=== PATIENT | male | born 1945 | race Caucasian/White ===

== ENCOUNTER 2018-02-19 22:21 | Emergency (ER) | payer MEDICARE ==
[~2018-02-19] VITALS: Ht 177.8 cm; Wt 80.7 kg
[~2018-02-19 22:21] MED LIST: AMARYL2 MG; ASPIRIN325; AZITHROMYCIN 2250 MG PO; CARDURA4 MG; CARVEDILOL12.5 MG; DELTASONE20 MG PO; HYDRALAZINE HC100 MG; IBUPROFEN 800800 MG PO; IMDUR 60 MG TAB60 M1; KEFLEX500 MG PO; LANTUS100 UNIT/M; LEVOTHYROXIN0.112 M1; LIPITOR 20 MG T20 M1; NITROGLYCERIN0.4 MG; NORCO 5-325 TA1 EACH PO; PARICALCITOL1 MCG; PREDNISONE50 MG PO; PROCARDIA XL90 MG; SYMBICORT160 MCG/4.; TUSSIONEX PENN473 ML PO; ZETIA10 MG
[2018-02-19] MEDS ORDERED: VITAMIN D1000 UNI1 PO (22:30)
[2018-02-19] MEDS ORDERED: NORCO 5-325 TA1 EACH PO (23:20)
[2018-02-19 23:41] VITALS: BP 173/59
== END 2018-02-19 23:43 | disposition home or self-care (01) ==
LOC: M.ERS 22:21
DX: M25.561 Pain in right knee (principal); E11.9 Type 2 diabetes mellitus without complications; I12.9 Hypertensive chronic kidney disease with stage 1 through stage 4 chronic kidney disease, or unspecified chronic kidney disease; N18.4 Chronic kidney disease, stage 4 (severe); E11.22 Type 2 diabetes mellitus with diabetic chronic kidney disease; Z96.651 Presence of right artificial knee joint; Z79.4 Long term (current) use of insulin; Z87.891 Personal history of nicotine dependence

== ENCOUNTER 2018-07-29 08:45 | Emergency (ER) | payer MEDICARE ==
[~2018-07-29] VITALS: Ht 177.8 cm; Wt 79.4 kg
[~2018-07-29 08:45] MED LIST changes: +VITAMIN D1000 UNI1 PO
[2018-07-29] MEDS ORDERED: NORVASC5 MG PO (08:55)
[2018-07-29] MEDS ORDERED: RENAL CAPS SOFTG1 MG PO (08:55)
[2018-07-29] MEDS ORDERED: LASIX 40 MG TAB40 M2 PO (08:56)
[2018-07-29 11:18] VITALS: BP 124/67
== END 2018-07-29 11:20 | disposition home or self-care (01) ==
LOC: M.ERS 08:45
DX: R04.0 Epistaxis (principal); I12.9 Hypertensive chronic kidney disease with stage 1 through stage 4 chronic kidney disease, or unspecified chronic kidney disease; E11.22 Type 2 diabetes mellitus with diabetic chronic kidney disease; N18.4 Chronic kidney disease, stage 4 (severe); Z99.2 Dependence on renal dialysis; Z79.4 Long term (current) use of insulin; Z87.891 Personal history of nicotine dependence

== ENCOUNTER 2018-08-13 09:42 | Inpatient (IN) | payer MEDICARE ==
[~2018-08-13] VITALS: Ht 177.8 cm; Wt 80.3 kg
--- NOTE | ~2018-08-13 | CON ---
[facility] [address] [place] [address] CONSULTATION Name: VIRGILIO BHATT Room: [address] IN M.R.#: [id number] Admission: 08/13/18 Attend Phys: Sherice Chen MD Discharge: 08/14/18 Date of : 41 Report #: [id number] THIS REPORT FOR: //name// CC: SHERICE Anne MD REFERRING PHYSICIAN: Sherice Chen M.D. REASON FOR CONSULTATION: Cytopenia. HISTORY OF PRESENT ILLNESS: The patient is a very pleasant 73-year-old male who was admitted after dialysis because of shortness of air. He had a subsequent repeat dialysis, this time drawing of 2 liters of fluid and is feeling much better. We are asked to see him because of his lab. Note the patient had a bone marrow biopsy back in 2006 for, I think, anemia at that time and did not find any abnormalities. He had seen Dr. Patti Caro, who had ordered the test. More recently, we note that his white count is 3.9, but it has also been that same range back to 2015 and in 2013, it was 5.2. During that same time, his differential has remained the same. He usually has an absolute neutrophil count around 2700, without any atypical cells. Hemoglobin during that same period has ranged between 10.5 and 10.7, MCV has roughly been the same at 88. Platelets have also roughly been the same. Recently they were 113,000; 10/2016, 86,000; 04/2016, 89,000 and back in 07/2014, 101,000. Iron was last checked about 2 years ago. At the same time, his liver function was mostly normal. His electrolytes are notable for the creatinine that is elevated related to end-stage renal disease. The patient really has no prior knowledge of low blood counts and he thinks he may have vaguely heard it once mentioned. He has not needed any transfusions. He is not aware of any liver disease. The patient denies any fevers or chills. He has lost some weight over the last year, but it sounds like it is somewhat intentional; it has mostly been since dialysis began. No unusual lymph nodes that he is aware of. No abdominal pain. No unusual bruising or bleeding. He has not had any surgeries recently. PAST MEDICAL HISTORY: Past history is notable for end-stage renal disease, on hemodialysis; history of coronary artery disease with quadruple heart bypass in 1997; history of aortofemoral bypass in 1999; history of diabetes; history of arthroscopic surgeries; hypertension [place] [address] CONSULTATION Name: BECKYGROVERVIRGILIO Room: [address] [place] [facility].#: [id number] Admission: 08/13/18 Attend Phys: Sherice Chen MD Discharge: 08/14/18 Date of : 41 Report #: [id number] SOCIAL HISTORY: He is a past cigarette smoker. No alcohol. No street drugs. MEDICATIONS: At the time of admission included aspirin, atorvastatin, carvedilol, doxazosin, glimepiride, hydralazine, insulin, levothyroxine, cholecalciferol, amlodipine, folic acid and furosemide. His current medications in the hospital have included cholecalciferol 1000 units daily, furosemide 40 mg daily oral, folic acid with vitamin B one cap daily, glimepiride 2 mg daily, doxazosin 4 mg daily, atorvastatin calcium 20 mg daily, aspirin 325 mg daily, levothyroxine 0.112 mg daily, pantoprazole 40 daily, insulin of some type 15 units b.i.d., hydralazine 100 b.i.d., carvedilol 6.25 mg b.i.d. and several PRNs, docusate 100 mg daily, MiraLax daily and Tylenol p.r.n. PHYSICAL EXAMINATION: GENERAL: The patient appears his stated age. VITAL SIGNS: His height is 5 feet 10, which is 177.8 cm. Weight is 177 pounds; note on admit, it was 175, that is also same as 80.29 kilograms. Blood pressure is 138/47, respirations 16, O2 sats 96, pulse 71 and temperature 97.4. MOOD: The patient is alert and pleasant and conversant. NEUROLOGIC: Face is symmetrical, moving all extremities. Speech and thought pattern normal. LYMPHATIC: The patient does have notably enlarged lymph nodes under both axilla. Note that he has had IV sites and also dialysis, I believe, connected in his left arm, not sure if it is related to that, but it is of note. No other lymph nodes in his neck or groin. ABDOMEN: Without pain or hepatosplenomegaly. EXTREMITIES: Without clubbing or cyanosis. There is some trace edema. SKIN: Intact. No unusual petechiae. RADIOLOGIC STUDIES: Here, he has had CT abdomen with runoff with the heart being mildly enlarged, liver supposedly normal and spleen normal. No mention of any lymph nodes, though there is extensive atherosclerosis and specifically no adenopathy mentioned. There was a small hiatal hernia. ASSESSMENT AND PLAN: 1. Cytopenias, unclear. Has been stable for about 4 years, but given possible lymphadenopathy, might consider CAT scan of chest to see if his lymph node is seen on there or could consider ultrasound. These could be related to IV pokes, but these seem a little bit more larger than that. If interested, we could do a biopsy. On the other hand, with his counts being stable, I do not feel overly strong about that. The patient agreed to have a B12, folate, iron panel and peripheral smear check today. We could have him follow up with Dr. Patti Caro, who he has seen before years past. 2. Fluid overload, better after second dialysis. He says normally they take out 0.5; but with the second dialysis yesterday, they took off 2 [place] [address] CONSULTATION Name: VIRGILIO BHATT Room: [address] [place] [facility].#: [id number] Admission: 08/13/18 Attend Phys: Sherice Chen MD Discharge: 08/14/18 Date of : 41 Report #: [id number] 3. End-stage renal disease. Defer to Dr. Decker. 4. Coronary artery disease with history of coronary artery bypass graft. Defer to Dr. Jara. 5. Peripheral vascular disease. Defer to Dr. Gamal Anne. 6. Diabetes. Defer to Dr. Lucas Ruth. 7. Followup. Consider follow up with Dr. Patti Caro, though the patient would like to talk with Dr. Dileep Alejo first. By: 1108 [id number] Ramos MD /nt
--- NOTE | ~2018-08-13 | CON ---
[address] [place] [address] CONSULTATION Name: VIRGILIO BHATT Room: [address] IN M.R.#: [id number] Admission: 08/13/18 Attend Phys: Burke Chen MD Discharge: 08/14/18 Date of : 41 Report #: [id number] THIS REPORT FOR: //name// CC: Burke Chen [facility] DATE OF SERVICE: 08/13/2018 CONSULTING PHYSICIAN: Dr. Chen. REASON FOR NEPHROLOGY CONSULTATION: End-stage renal disease, admitted with fluid overload. REASON FOR ADMISSION: Shortness of breath. HISTORY OF PRESENT ILLNESS: This is a 73-year-old male who has been on hemodialysis since 2016, goes for hemodialysis every Wednesday, , and Wednesday under the care of Dr. Decker at the [facility]. Also, has history of diabetes and hypertension, coronary artery disease, who came in after he became short of breath after his dialysis yesterday. We called up his dialysis unit and they said that they were able to remove only 0.3 liters off of him because the patient himself asks them to stop and does not let them remove fluid because he complained of cramping. His chest x-ray yesterday showed fluid overload with some left-sided pleural effusion and we did dialyze him again yesterday evening for 2 hours and removed 2 liters off of him and he feels better today. ALLERGIES: No known allergies. REVIEW OF SYSTEMS: As mentioned in history of present illness. HOME MEDICATIONS: Which include aspirin, atorvastatin, carvedilol, doxazosin, glimepiride, hydralazine, Lantus, levothyroxine, cholecalciferol, amlodipine, folic acid, furosemide. PAST MEDICAL AND SURGICAL HISTORY: Which includes quadruple bypass in 1997; aortofemoral bypass in 1999; diabetes mellitus type 2; three arthroscopic surgeries of left knee; total knee replacement right knee; end-stage renal disease, on hemodialysis every Wednesday, and Wednesday; hypertension; AV fistula. FAMILY HISTORY: Noncontributory. SOCIAL HISTORY: He does not smoke. Does not use alcohol or use illicit drugs. PHYSICAL EXAMINATION: [place] [address] CONSULTATION Name: NOVAVIRGILIO APRIL Room: [address]#: [id number] Admission: 08/13/18 Attend Phys: Burke Chen MD Discharge: 08/14/18 Date of : 41 Report #: [id number] VITAL SIGNS: Blood pressure is 143/42, respiration rate is 16, pulse rate is 64, temperature 36.5, and pulse ox is 96% on 2 liters nasal cannula. GENERAL: He is awake and alert, oriented x 3. HEAD, EYES, EARS, NOSE AND THROAT: Mucous membranes are moist. NECK: There is no JVD. CHEST: Diminished breath sounds bilaterally, but no crackles. CARDIOVASCULAR: S1, S2 normal. No murmurs. ABDOMEN: Soft, nondistended, nontender. Bowel sounds are present. EXTREMITIES: He has a left arm AV fistula radiocephalic with good bruit and good thrill. Lower extremities are symmetrical. No edema. NEUROLOGICAL FUNCTION: Gross neurological function is intact. PSYCHOLOGIC: Mood and affect seem to be normal. LABORATORY DATA: Hemoglobin is 10.5, WBC is 3.9, platelet count is 130. Potassium is 4.7, sodium is 138, and CO2 is 31. Other labs are reviewed. IMAGING: Chest x-ray was reviewed. ASSESSMENT: 1. End-stage renal disease, on hemodialysis Wednesday, and Wednesday. 2. Short of breath, fluid overload, left-sided pleural effusions. 3. Anemia of chronic kidney disease, hemoglobin is at goal 10.5. 4. Hypertension. 5. Diabetes. PLAN: 1. The patient does have fluid overload. He does not allow fluid removal during dialysis. We dialyzed him again yesterday, removed 2 liters off of him and he looks better today. Next dialysis will be planned for Wednesday. 2. Hemoglobin is at goal. 3. Blood pressure is controlled. Thank you for this consultation. He is okay to be discharged from renal standpoint. I discussed with the patient as well as the patient's nurse. By: [id number] Byrnes MD /nt
[~2018-08-13 09:42] MED LIST changes: -AMARYL2 MG; +AMARYL2 MG PO; -CARDURA4 MG; +CARDURA4 MG PO; -CARVEDILOL12.5 MG; +CARVEDILOL12.5 MG PO; -HYDRALAZINE HC100 MG; +HYDRALAZINE HC100 MG PO; -LANTUS100 UNIT/M; +LANTUS100 UNIT/M SUBQ; +LASIX 40 MG TAB40 M2 PO; -LEVOTHYROXIN0.112 M1; -LIPITOR 20 MG T20 M1; +LIPITOR 20 MG T20 M1 PO; +NORVASC5 MG PO; +RENAL CAPS SOFTG1 MG PO; +SYNTHROID112 MC1 PO
[2018-08-13 09:45] VITALS: BP 157/65
[2018-08-13 10:13] LABS: ABSOLUTE EOSINOPHILS 0.1 thou/uL (0.0-0.7); ABSOLUTE LYMPHOCYTES 0.5 thou/uL (0.8-5.3); ABSOLUTE MONOCYTES 0.5 thou/uL (0.0-1.2); ABSOLUTE NEUTROPHILS 2.7 thou/uL (1.6-8.1); EOSINOPHILS 2.1 %; HEMATOCRIT 34.3 % (42.0-52.0); HEMOGLOBIN 11.1 gm/dL (14.0-18.0); LYMPHOCYTES 13.6 %; MCH 28.3 pg (26.0-34.0); MCHC 32.3 g/dL (28.0-37.0); MCV 87.4 fL (80.0-100.0); MONOCYTES 13.8 %; MPV 7.2 fl. (7.2-11.1); NUCLEATED RBCS 0 /100WBC; PLATELET COUNT* 112 thou/uL (150-400); POLYS 69.5 %; RBC 3.92 mil/uL (4.50-6.00); RDW-CV 19.5 % (10.5-14.5); WBC 3.9 thou/uL (4.0-11.0)
[2018-08-13 10:17] LABS: PROTIME 10.3 Seconds (9.20-11.50)
[2018-08-13 10:18] LABS: ANION GAP 5 mmol/L (7-16); BUN 11 mg/dL (7-18); CALCIUM 8.5 mg/dL (8.5-10.1); CHLORIDE 100 mmol/L (98-107); CO2 35 mmol/L (21-32); CREATININE 2.5 mg/dL (0.6-1.3); GLUCOSE 44 mg/dL (70-99); POTASSIUM 3.9 mmol/L (3.5-5.1); SODIUM 140 mmol/L (136-145)
--- NOTE | 2018-08-13 10:26 | NUR ---
PT BLOOD GLUCOSE LOW PER LAB DRAW. PT RECIEVED ORANGE JUICE, GRANT CRACKERS, AND CRACKERS WITH PEANUT BUTTER.
[2018-08-13 10:30] LABS: ALBUMIN 3.1 g/dL (3.4-5.0); ALKALINE PHOSPHATASE 81 U/L (46-116); LIPASE 71 U/L (73-393); NT-PRO BRAIN NAT PEPTIDE > 35000 pg/mL (<300); SGOT 20 U/L (15-37); SGPT 21 U/L (30-65); TOTAL BILIRUBIN 0.7 mg/dL (<0.1-1.0); TOTAL PROTEIN 6.9 g/dL (6.4-8.2); TROPONIN-I LEVEL 0.08 ng/mL (<0.06)
[2018-08-13 11:45] VITALS: BP 152/45
[2018-08-13 11:50] VITALS: BP 104/87
[2018-08-13] MEDS ORDERED: ADULT ASPIRIN R81 MG PO (14:54)
[2018-08-13 17:11] VITALS: BP 146/40
--- NOTE | 2018-08-13 20:00 | NUR ---
pt arrived to room 201 at approx 1145, admission hx and assesment done as charted. pt a/o x4, denies pain, vss, sr/bbb on the monitor. pt scheduled for dialysis this evening. left unit at approx 1845. report given to night rn will
[2018-08-13 22:05] VITALS: BP 148/56
[2018-08-14 00:41] VITALS: BP 115/70; BP 126/52
[2018-08-14 04:24] LABS: ABSOLUTE EOSINOPHILS 0.1 thou/uL (0.0-0.7); ABSOLUTE LYMPHOCYTES 0.6 thou/uL (0.8-5.3); ABSOLUTE MONOCYTES 0.5 thou/uL (0.0-1.2); ABSOLUTE NEUTROPHILS 2.7 thou/uL (1.6-8.1); EOSINOPHILS 3.1 %; HEMATOCRIT 32.5 % (42.0-52.0); HEMOGLOBIN 10.5 gm/dL (14.0-18.0); LYMPHOCYTES 14.1 %; MCH 28.4 pg (26.0-34.0); MCHC 32.2 g/dL (28.0-37.0); MCV 88.3 fL (80.0-100.0); MONOCYTES 12.7 %; MPV 7.5 fl. (7.2-11.1); NUCLEATED RBCS 0 /100WBC; PLATELET COUNT* 113 thou/uL (150-400); POLYS 69.1 %; RBC 3.68 mil/uL (4.50-6.00); RDW-CV 19.4 % (10.5-14.5); WBC 3.9 thou/uL (4.0-11.0)
[2018-08-14 04:30] VITALS: BP 143/42
[2018-08-14 04:46] LABS: POTASSIUM 4.7 mmol/L (3.5-5.1)
[2018-08-14 05:08] LABS: CREATININE 4.1 mg/dL (0.6-1.3)
--- NOTE | 2018-08-14 06:49 | NUR ---
PT AT DIALYSIS AT START OF SHIFT, PT TO FLOOR AT 2145 AND ASSUMED CARE. PT VITALS WNL. SEE MAR. SEE CHARTING. HOURLY ROUNDING FOR SAFETY.
[2018-08-14 08:00] VITALS: BP 138/47
--- NOTE | 2018-08-14 09:46 | NUR ---
ASSUMED PT CARE AT 0700 PT IS ALERT AND ORIENTD X 4 PT DENIES PAIN OR SOA ON RA, PT IS UP AD JOHNNY PT IS NOT A FALL RISK, PT IS SR ON THE MONITOR, NEPHROLOGY CLEARED PT FOR DISCAHRGE AWAITING HOSPITALIST ORDERS, WILL CONTINUE TO MONITOR
[2018-08-14 13:09] VITALS: BP 137/50
[2018-08-14 13:12] VITALS: BP 137/50
--- NOTE | 2018-08-14 15:35 | EKG ---
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 : 1945 Requested By: Gamal Ferguson Order Number: [id number] MD: Orville Austin Measurements Intervals [place] Rate: 83 P: 107 MD: 180 QRS: 75 QRSD: 164 T: 229 QT: 442 QTc: 520 Interpretive Statements Sinus rhythm Left bundle-branch block Baseline wander in lead(s) V2 Compared to ECG 10/30/2016 11:09:25 No significant changes Electronically Signed On 08-14-2018 15:35:28 CLOTH TESTER by Orville Austin [email or web address] <ELECTRONICALLY SIGNED> By: Orville Austin MD, FACC 08/14/18 1535 0947 0947 Orville Austin MD, FAC /EPI
== END 2018-08-14 13:48 | disposition home or self-care (01) | DRG 291 ==
LOC: M.ERS 09:42 → M.TBA-ER 10:55 → M.2W 11:47
PROVIDERS: Emergency Medicine; Internal Medicine Hematology & Oncology; ADMIT Internal Medicine
DX: I13.2 Hypertensive heart and chronic kidney disease with heart failure and with stage 5 chronic kidney disease, or end stage renal disease (principal); I50.33 Acute on chronic diastolic (congestive) heart failure; N18.6 End stage renal disease; D61.818 Other pancytopenia; Z87.891 Personal history of nicotine dependence; I25.10 Atherosclerotic heart disease of native coronary artery without angina pectoris; Z96.651 Presence of right artificial knee joint; E87.70 Fluid overload, unspecified; D63.8 Anemia in other chronic diseases classified elsewhere; E11.22 Type 2 diabetes mellitus with diabetic chronic kidney disease; E03.9 Hypothyroidism, unspecified; D75.9 Disease of blood and blood-forming organs, unspecified; E11.51 Type 2 diabetes mellitus with diabetic peripheral angiopathy without gangrene; M19.90 Unspecified osteoarthritis, unspecified site; Z79.82 Long term (current) use of aspirin; Z95.1 Presence of aortocoronary bypass graft; Z79.899 Other long term (current) drug therapy; Z99.2 Dependence on renal dialysis

== ENCOUNTER 2018-09-24 09:52 | Emergency (ER) | payer MEDICARE ==
[~2018-09-24] VITALS: Ht 177.8 cm; Wt 74.8 kg
[~2018-09-24 09:52] MED LIST changes: +ADULT ASPIRIN R81 MG PO
[2018-09-24 10:39] LABS: ABSOLUTE BASOPHILS 0.1 thou/uL (0.0-0.2); ABSOLUTE EOSINOPHILS 0.1 thou/uL (0.0-0.7); ABSOLUTE LYMPHOCYTES 0.6 thou/uL (0.8-5.3); ABSOLUTE MONOCYTES 0.4 thou/uL (0.0-1.2); ABSOLUTE NEUTROPHILS 2.7 thou/uL (1.6-8.1); BASOPHILS 1.7 %; EOSINOPHILS 3.4 %; HEMATOCRIT 37.9 % (42.0-52.0); HEMOGLOBIN 12.2 gm/dL (14.0-18.0); LYMPHOCYTES 15.4 %; MCH 28.5 pg (26.0-34.0); MCHC 32.1 g/dL (28.0-37.0); MCV 88.8 fL (80.0-100.0); MONOCYTES 9.8 %; MPV 7.2 fl. (7.2-11.1); NUCLEATED RBCS 0 /100WBC; PLATELET COUNT* 109 thou/uL (150-400); POLYS 69.7 %; RBC 4.27 mil/uL (4.50-6.00); RDW-CV 19.9 % (10.5-14.5); WBC 3.9 thou/uL (4.0-11.0)
[2018-09-24] MEDS ORDERED: AMOXICILLIN 50500 MG PO (10:41)
[2018-09-24 10:48] LABS: APTT 30.8 Seconds (25.0-31.3); PROTIME 10.4 Seconds (9.20-11.50)
[2018-09-24 11:10] VITALS: BP 150/81
== END 2018-09-24 11:11 | disposition home or self-care (01) ==
LOC: M.ERS 09:52
PROVIDERS: Nurse Practitioner Family
DX: R04.0 Epistaxis (principal); E11.22 Type 2 diabetes mellitus with diabetic chronic kidney disease; I12.9 Hypertensive chronic kidney disease with stage 1 through stage 4 chronic kidney disease, or unspecified chronic kidney disease; N18.4 Chronic kidney disease, stage 4 (severe); Z99.2 Dependence on renal dialysis; Z96.651 Presence of right artificial knee joint; Z87.891 Personal history of nicotine dependence; Z79.4 Long term (current) use of insulin

== ENCOUNTER 2018-09-24 12:17 | Emergency (ER) | payer MEDICARE ==
[~2018-09-24] VITALS: Ht 177.8 cm; Wt 74.8 kg
[~2018-09-24 12:17] MED LIST changes: +AMOXICILLIN 50500 MG PO
[2018-09-24 12:52] VITALS: BP 177/68
== END 2018-09-24 12:53 | disposition home or self-care (01) ==
LOC: M.ERS 12:17
DX: J34.89 Other specified disorders of nose and nasal sinuses (principal); I12.9 Hypertensive chronic kidney disease with stage 1 through stage 4 chronic kidney disease, or unspecified chronic kidney disease; E11.22 Type 2 diabetes mellitus with diabetic chronic kidney disease; N18.4 Chronic kidney disease, stage 4 (severe); Z79.4 Long term (current) use of insulin; Z99.2 Dependence on renal dialysis; Z87.891 Personal history of nicotine dependence

== ENCOUNTER 2019-03-24 20:29 | Inpatient (IN) | payer MEDICARE ==
[~2019-03-24] VITALS: Ht 177.8 cm; Wt 82.3 kg
[2019-03-24 20:34] VITALS: BP 145/47
[2019-03-24 20:52] LABS: ABSOLUTE EOSINOPHILS 0.1 thou/uL (0.0-0.7); ABSOLUTE LYMPHOCYTES 0.6 thou/uL (0.8-5.3); ABSOLUTE MONOCYTES 0.4 thou/uL (0.0-1.2); ABSOLUTE NEUTROPHILS 3.1 thou/uL (1.6-8.1); BASOPHILS 0.7 %; EOSINOPHILS 2.9 %; HEMATOCRIT 31.9 % (42.0-52.0); HEMOGLOBIN 10.8 gm/dL (14.0-18.0); LYMPHOCYTES 14.1 %; MCH 32.2 pg (26.0-34.0); MCHC 33.7 g/dL (28.0-37.0); MCV 95.5 fL (80.0-100.0); MONOCYTES 9.2 %; MPV 7.6 fl. (7.2-11.1); NUCLEATED RBCS 0 /100WBC; PLATELET COUNT* 110 thou/uL (150-400); POLYS 73.1 %; RBC 3.34 mil/uL (4.50-6.00); RDW-CV 19.3 % (10.5-14.5); WBC 4.3 thou/uL (4.0-11.0)
[2019-03-24 21:00] LABS: CALCIUM 8.6 mg/dL (8.5-10.1); CREATININE 6.3 mg/dL (0.6-1.3); POTASSIUM 4.7 mmol/L (3.5-5.1)
[2019-03-24 21:03] LABS: PROTIME 10.6 Seconds (9.20-11.50)
[2019-03-24 21:09] LABS: ALBUMIN 3.9 g/dL (3.4-5.0); TOTAL BILIRUBIN 0.6 mg/dL (<0.1-1.0); TOTAL PROTEIN 7.5 g/dL (6.4-8.2); TROPONIN-I LEVEL 0.34 ng/mL (<0.06)
--- NOTE | 2019-03-24 23:03 | NUR ---
RECIEVED REPORT AND ASSUMED CARE OF PT.
--- NOTE | 2019-03-25 01:28 | NUR ---
REPORT GIVEN TO YANELIS HERNANDEZ. PT BEING ADMITTED TO ROOM 204.
[2019-03-25 01:29] VITALS: BP 141/49
[2019-03-25 02:15] VITALS: BP 146/61
--- NOTE | 2019-03-25 03:48 | NUR ---
RECEIVED REPORT AND ASSUMED CARE AT 0200. PT TRANSPORTED FROM ED TO ROOM 204. VSS. CARDIAC MONITORING IN PLACE. PT ORIENTATD TO ROOM, CALL LIGHT, FALL POLICY. ASSESMENT COMPLETED CHARTED. PT DENIES COMPLAINTS OF PAIN. PT UP AD JOHNNY IN ROOM, ON RA. DIALYSIS TU/TH/SAT. FISTULA L ARM, LIMB ALERT BAND ON. DISCUSSED PLAN OF CARE WITH PT. NPO, CARDIOLOGY CONSULT, UPCOMING LAB DRAWS. VERBALIZED UNDERSTANDING. BED LOCKED IN LOWEST POSITION, CALL LIGHT MARITZA LEWIS.
[2019-03-25 03:49] VITALS: BP 129/52
[2019-03-25 07:30] VITALS: BP 124/52
--- NOTE | 2019-03-25 13:06 | CON ---
[facility] [address] [place] [address] CONSULTATION Name: VIRGILIO BHATT APRIL Room: [address] ADM IN M.R.#: [id number] Admission: 03/25/19 Attend Phys: Margarita Vargas Discharge: Date of : 41 Report #: [id number] THIS REPORT FOR: //name// CC: Dileep Breen INDICATION: Non-ST elevation myocardial infarction. HISTORY OF PRESENT ILLNESS: The patient is a very pleasant 73-year-old gentleman who had 4-vessel coronary artery bypass grafting in 1997. There is no report of any intervention since that time with the exception of pacemaker placement in September of this year. The patient had been in his usual state of health until Wednesday, yesterday when he had some shortness of breath and chest pressure while riding his riding lawnmower. He describes this symptom is very similar to what he had prior to his bypass surgery. He presented to the Emergency Room where his troponins trended upwards consistent with non-ST elevation myocardial infarction. He was placed on a heparin drip, given aspirin and had resolution of his symptoms. He remains stable since then. He does have end-stage renal disease and is on dialysis. Additional cardiac risk factors include hyperlipidemia, type 2 diabetes mellitus, hypertension, and family history of coronary artery disease. He is a nonsmoker. PAST MEDICAL HISTORY: 1. Coronary artery disease with 4-vessel bypass in 1997. 2. Permanent pacemaker placement. 3. Type 2 diabetes mellitus. 4. Chronic renal insufficiency, end-stage renal disease, on dialysis. 5. Hypothyroidism. 6. Hypertension. 7. Hyperlipidemia. 8. Peripheral vascular disease. PAST SURGICAL HISTORY: Previous aortofemoral bypass, bilateral knee replacements, fem-fem bypass, coronary artery bypass grafting, AV fistula placement. FAMILY HISTORY: The patient's father had a heart attack at age 56. SOCIAL HISTORY: The patient is . He does not smoke. He does not drink alcohol. ALLERGIES: None documented. HOME MEDICATIONS: Amlodipine 5 mg b.i.d., aspirin 81 mg daily, atorvastatin 20 mg daily, carvedilol 6.25 mg b.i.d., vitamin D 1000 units daily, Card[place] 4 [place] [address] CONSULTATION Name: VIRGILIO BHATT Room: [address] IN [facility].#: [id number] Admission: 03/25/19 Attend Phys: Margarita Vargas Discharge: Date of : 41 Report #: [id number], folate 1 mg daily, furosemide 40 mg daily, glimepiride 2 mg daily, hydralazine 100 mg b.i.d., Lantus 25 units at bedtime, levothyroxine 112 mcg daily. REVIEW OF SYSTEMS: A 14-point review of systems is positive for cough productive of clear sputum, chest discomfort as outlined above, cardiac murmur, type 2 diabetes mellitus, hypothyroidism and he wears glasses without acute loss of vision. Otherwise, 14-point review of systems is unremarkable. PHYSICAL EXAMINATION: VITAL SIGNS: Blood pressure 124/52, pulse 67 and regular. GENERAL: This is a very pleasant gentleman, in no distress. Mood and affect appropriate. HEENT: The patient is wearing glasses. Extraocular muscles intact. Poor dentition. Mucous membranes are moist. NECK: Shows no jugular venous distention. CHEST: Reveals clear lung mariscal. CARDIAC: Reveals regular rhythm with grade 2/6 holosystolic murmur heard best at the left sternal border without a gallop. ABDOMEN: Reveals normal bowel sounds. The abdomen is soft, nontender. EXTREMITIES: Shows no edema. SKIN: Dry. LABORATORY DATA: A 12-lead EKG shows sinus rhythm with left bundle branch block. Labs are reviewed. Electrolytes are within normal limits. BUN 36, creatinine 6.3, serum glucose 140. LFTs are essentially within normal limits. Troponin on presentation 0.34, subsequently 1.0 and now 2.92. NT-proBNP greater than 35,000. White blood cell count 4.3, hemoglobin 10.8, platelet count 110,000. Chest x-ray shows chronic interstitial lung changes, possible left lower lobe pneumonitis, pacemaker in place, cardiac silhouette is upper limits of normal. IMPRESSION AND RECOMMENDATIONS: 1. Non-ST elevation myocardial infarction. The patient has been placed on heparin drip. We will continue aspirin. He is presently stable and pain free. We will plan on invasive evaluation. Further intervention pending those results. 2. Coronary artery disease. The patient is on good medical regimen outlined above, we will continue. 3. History of 4-vessel coronary artery bypass grafting remotely. Outside records requested. 4. Hypertension, adequately controlled presently. 5. Type 2 diabetes mellitus per hospitalist. 6. End-stage renal disease, on dialysis. Presently dialyzing. His schedule is [facility] [address] [place] [address] CONSULTATION Name: VIRGILIO BHATT Room: [address] IN .R.#: [id number] Admission: 03/25/19 Attend Phys: Margarita Vargas Discharge: Date of : 41 Report #: [id number] Wednesday, and Wednesday. 7. Elevated NT-proBNP in part due to end-stage renal disease. The patient may have an element of [id number] heart failure. Echocardiogram will be ordered. <ELECTRONICALLY SIGNED> By: Orville Austin MD, FACC 03/25/19 1306 1045 1202Michaeabebe Austin MD, FACC /nt
[2019-03-25 17:15] VITALS: BP 120/46
[2019-03-25 20:12] VITALS: BP 120/51
[2019-03-26] VITALS: BP 117/43
[2019-03-26 04:00] VITALS: BP 130/56
[2019-03-26 04:49] LABS: ABSOLUTE EOSINOPHILS 0.1 thou/uL (0.0-0.7); ABSOLUTE LYMPHOCYTES 0.8 thou/uL (0.8-5.3); ABSOLUTE MONOCYTES 0.3 thou/uL (0.0-1.2); ABSOLUTE NEUTROPHILS 2.2 thou/uL (1.6-8.1); HEMATOCRIT 30.5 % (42.0-52.0); HEMOGLOBIN 10.1 gm/dL (14.0-18.0); MCH 31.7 pg (26.0-34.0); MCHC 33.1 g/dL (28.0-37.0); MCV 95.8 fL (80.0-100.0); MONOCYTES 9.8 %; MPV 7.5 fl. (7.2-11.1); NUCLEATED RBCS 0 /100WBC; PLATELET COUNT* 114 thou/uL (150-400); POLYS 64.2 %; RBC 3.18 mil/uL (4.50-6.00); RDW-CV 18.7 % (10.5-14.5); WBC 3.4 thou/uL (4.0-11.0)
[2019-03-26 04:59] LABS: CALCIUM 8.4 mg/dL (8.5-10.1); POTASSIUM 4.4 mmol/L (3.5-5.1)
--- NOTE | 2019-03-26 05:33 | NUR ---
RECEIVED REPORT AND ASSUMED CARE AT 1900. VSS. CARDIAC MONITORING IN PLACE. PT DENIES COMPLAINTS OF PAIN. ASSESSMENT COMPLETED CHARTED. PT UP AD JOHNNY IN ROOM, ON RA. BED LOCKED IN LOWEST POSITION, CALL LIGHT WITHIN REACH. HOURLY ROUNDING COMPLETED AND ALL NEEDS MET
[2019-03-26 05:39] LABS: CREATININE 4.8 mg/dL (0.6-1.3)
[2019-03-26 07:30] VITALS: BP 134/53
[2019-03-26 12:00] VITALS: BP 129/56
[2019-03-26 16:25] VITALS: BP 134/53
--- NOTE | 2019-03-26 17:28 | NUR ---
PROGRESSING TOWARDS GOALS. HEPARIN GTT INFUSING PER PROTOCOL. PTT THERAPEUTIC. PLANNING FOR CARDIAC CATH TOMORROW PER DR SEGURA. PATIENT UPDATED ON PLAN OF CARE AND AGREEABLE. CALL LIGHT WITHIN REACH. HOURLY ROUNDING CHARTED. WILL CONTINUE TO MONITOR.
[2019-03-26 19:50] VITALS: BP 135/53
[2019-03-27] VITALS (10 sets, daily range): BP systolic 120–145; BP diastolic 49–65
[2019-03-27 04:39] LABS: INR 1.1; PROTIME 10.9 Seconds (9.20-11.50)
[2019-03-27 04:43] LABS: BUN 42 mg/dL (7-18); CALCIUM 8.6 mg/dL (8.5-10.1); CHOLESTEROL 96 mg/dL (<200); CO2 29 mmol/L (21-32); GLUCOSE 93 mg/dL (70-99); HDL CHOLESTEROL 33 mg/dL (>40); LDL CHOLESTEROL 49 mg/dL (<100); TC:HDL 2.9 Ratio (Not establshd); TRIGLYCERIDE 72 mg/dL (<150); VLDL 14 mg/dL (<40)
[2019-03-27 04:44] LABS: APTT 179.5 Seconds (25.0-31.3)
[2019-03-27 04:50] LABS: ANION GAP 9 mmol/L (7-16); CHLORIDE 103 mmol/L (98-107); POTASSIUM 4.3 mmol/L (3.5-5.1); SODIUM 141 mmol/L (136-145)
[2019-03-27 04:51] LABS: CREATININE 6.8 mg/dL (0.6-1.3); SERUM ASSESSMENT CLEAR
--- NOTE | 2019-03-27 06:37 | NUR ---
RECEIVED REPORT AND ASSUMED CARE AT 1900. VSS. CARDIAC MONITORING IN PLACE. PT DENIES COMPLAINTS OF PAIN. ASSESSMENT COMPLETED CHARTED. PT UP AD JOHNNY IN ROOM, ON RA. BED LOCKED IN LOWEST POSITION, CALL LIGHT WITHIN REACH. PT TOOK A SHOWER THIS EVENING. HEPARIN GTT DOSE CHANGES PER PROTOCOL. HOURLY ROUNDING COMPLETED AND ALL NEEDS MET
--- NOTE | 2019-03-27 07:15 | NUR ---
CHANGE OF SHIFT BEDSIDE REPORT GIVEN PATIENT SEEN AT BEDSIDE, IN BED ASLEEP ASSUMED PATIENT CARE
--- NOTE | 2019-03-27 10:32 | NUR ---
Pt is A&O. Resides at home alone. Active and independent. No DME. Hx of HH post knee surgery. No hx of SNF. Pt is current at [facility] on a schedule, flow sheets will need to be faxed at ut [phone]. Goal is home at ut. Following.
--- NOTE | 2019-03-27 12:17 | EKG ---
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: [place] : 1945 Requested By: Tabitha Chen Order Number: [id number] MD: Tim Gudino Measurements Intervals [place] Rate: 70 P: 52 SD: 150 QRS: 8 QRSD: 171 T: 166 QT: 478 QTc: 516 Interpretive Statements Sinus rhythm Left bundle branch block Compared to ECG 08/13/2018 09:47:28 No significant changes Electronically Signed On 03-27-2019 12:17:26 CDT by Tim Gudino [email or web address] <ELECTRONICALLY SIGNED> By: Tim Gudino MD, [facility] 03/27/19 1217 35 35 Tim Gudino MD, [facility] /EPI
--- NOTE | 2019-03-27 17:06 | 2DMMODE ---
[place] [address] 2 D/M-MODE ECHOCARDIOGRAM Name: VIRGILIO BHATT Room: [address] ADM IN [facility]#: [id number] Admission: 03/25/19 Attend Phys: Lucas Breen Discharge: Date of : 41 Date of Service: 03/27/19 1706 Report #: [id number] THIS REPORT FOR: //name// APPROVED REPORT Study performed: 03/27/2019 10:23:59 EXAM: Comprehensive 2D, Doppler, and color-flow Echocardiogram Patient Location: In-Patient Room #: [facility] BSA: 2.00 HR: 60 bpm BP: 132/51 mmHg Rhythm: NSR Other Information Study Quality: Good Indications Acute [place] Dyspnea CAD Elevated Troponin 2D Dimensions IVSd: 13.37 (7-11mm) LVOT Diam: 22.41 (18-24mm) LVDd: 54.48 mm PWd: 15.02 (7-11mm) Ascending Ao: 29.84 (22-36mm) LVDs: 38.63 (25-40mm) Aortic Root: 35.73 mm Volumes Left Atrial Volume (Systole) LA ESV Index: 41.00 mL/m2 Aortic Valve AoV Peak Mustapha.: 1.57 m/s AO Peak Gr.: 9.82 mmHg LVOT Max P.69 mmHg AO Mean Gr.: 6.03 mmHg LVOT Mean P.83 mmHg LVOT Max V: 0.65 m/s AO V2 VTI: 42.19 cm LVOT Mean V: 0.42 m/s GARIMA (VTI): 1.68 cm2 LVOT V1 VTI: 17.97 [place] [address] 2 D/M-MODE ECHOCARDIOGRAM Name: VIRGILIO BHATT Room: [address] IN M.R.#: [id number] Admission: 03/25/19 Attend Phys: Lucas Breen Discharge: Date of : 41 Date of Service: 03/27/19 1706 Report #: [id number] E/A Ratio: 1.63 MV Decel. Time: 221.70 ms MV E Max Mustapha.: 1.02 m/s MV PHT: 64.29 ms MVA (PHT): 3.42 cm2 TDI E/Lateral E': 12.75 E/Medial E': 17.00 Medial E' Mustapha.: 0.06 m/s Lateral E' Mustapha.: 0.08 m/s Pulmonary Valve PV Peak Mustapha.: 1.35 m/s PV Peak Gr.: 7.30 mmHg Tricuspid Valve RAP Estimate: 5.00 mmHg TR Peak Gr.: 41.65 mmHg RVSP: 46.00 mmHg PA Pressure: 46.00 mmHg Left Ventricle The left ventricle is normal size. Regional wall motion abnormalities are noted with thinning and hypo-akinesis of the distal septum and anteroapical segment. Mild concentric left ventricular hypertrophy. Left ventricular systolic function is moderately decreased. LVEF is 40%. The left ventricular diastolic function is normal. Right Ventricle The right ventricle is normal size. The right ventricular systolic function is normal. Pacemaker lead is present in the right ventricle. Atria Left atrium is mildly dilated. The right atrium size is normal. Aortic Valve Mild aortic valve sclerosis. No aortic regurgitation is present. No hemodynamically significant valvular aortic stenosis. Mitral Valve There is mitral annular calcification. Trace mitral regurgitation. No evidence of mitral valve stenosis. Tricuspid Valve The tricuspid valve is normal in structure. [place] [address] 2 D/M-MODE ECHOCARDIOGRAM Name: VIRGILIO BHATT Room: [address] IN [facility]#: [id number] Admission: 03/25/19 Attend Phys: Lucas Breen Discharge: Date of : 41 Date of Service: 03/27/19 1706 Report #: [id number] Pulmonic Valve The pulmonary valve is normal in structure. Mild pulmonic regurgitation. Great Vessels The aortic root is normal in size. IVC is normal in size and collapses >50% with inspiration. Pericardium There is no pericardial effusion. <Conclusion> The left ventricle is normal size. Mild concentric left ventricular hypertrophy. Left ventricular systolic function is moderately decreased. LVEF is 40%. The right ventricle is normal size. Left atrium is mildly dilated. Mild aortic valve sclerosis. No aortic regurgitation is present. No hemodynamically significant valvular aortic stenosis. There is mitral annular calcification. Trace mitral regurgitation. IVC is normal in size and collapses >50% with inspiration. There is no pericardial effusion. Regional wall motion abnormalities are noted with thinning and hypo-akinesis of the distal septum and anteroapical segment. Pacemaker lead is present in the right ventricle. <ELECTRONICALLY SIGNED> By: Tim Gudino MD, FACC 03/27/191705 05 05 Tim Gudino MD, FACC /INF
--- NOTE | 2019-03-27 18:03 | EKG ---
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
[2019-03-28] VITALS (8 sets, daily range): BP systolic 126–172; BP diastolic 45–66
--- NOTE | 2019-03-28 01:34 | NUR ---
PT ALERT ORIENTEND. R GROIN R WRIST DRSG D/I. R GROIN SOFT NO HEMATOMA. L ARM AV FISTULA +THRILL +BRUIT. TELEMETRY SHOWS A PACED WITH BBB. ON . IVF RUNNING AT TKO 20MLS/HR.
[2019-03-28 04:30] LABS: HEMATOCRIT 29.5 % (42.0-52.0); HEMOGLOBIN 9.9 gm/dL (14.0-18.0); MCH 32.4 pg (26.0-34.0); MCHC 33.7 g/dL (28.0-37.0); MCV 96.1 fL (80.0-100.0); MPV 7.7 fl. (7.2-11.1); RBC 3.07 mil/uL (4.50-6.00); RDW-CV 19.2 % (10.5-14.5); WBC 4.4 thou/uL (4.0-11.0)
[2019-03-28 04:54] LABS: ALBUMIN 2.9 g/dL (3.4-5.0); CALCIUM 8.6 mg/dL (8.5-10.1); POTASSIUM 4.4 mmol/L (3.5-5.1); TOTAL BILIRUBIN 0.7 mg/dL (<0.1-1.0); TOTAL PROTEIN 6.2 g/dL (6.4-8.2)
[2019-03-28 04:59] LABS: CREATININE 7.8 mg/dL (0.6-1.3)
[2019-03-28 05:00] LABS: TROPONIN-I LEVEL 2.51 ng/mL (<0.06)
[2019-03-28] MEDS ORDERED: BRILINTA90 MG PO (15:20)
[2019-03-28] MEDS ORDERED: NITROGLYCERIN0.4 MG SUBLING (15:24)
--- NOTE | 2019-03-28 15:29 | NUR ---
Pt discharging to home today, faxed flowsheets to [facility]
--- NOTE | 2019-03-28 15:55 | EKG ---
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: : 1945 Requested By: Tim Gudino Order Number: [id number] Leonie MD: Orville Austin Measurements Intervals [place] Rate: 61 P: [place]: 145 QRS: 43 QRSD: 176 T: 220 QT: 487 QTc: 491 Interpretive Statements Atrial-paced complexes Left bundle branch block Compared to ECG 03/27/2019 14:53:58 No significant changes Electronically Signed On 03-28-2019 15:54:59 CDT by Orville Austin [email or web address] <ELECTRONICALLY SIGNED> By: Orville Austin MD, [facility] 03/28/19 1554 1 1 Orville Austin MD, FAC /EPI
--- NOTE | 2019-03-28 17:46 | CARD ---
[address] [address] CARDIAC CATH REPORT Name: NOVAVIRGILIO CHEN Room: [address] IN .R.#: [id number] Admission: 03/25/19 Attend Phys: Margarita Vargas Discharge: 03/28/19 Date of : 41 Report #: [id number] THIS REPORT FOR: //name// APPROVED REPORT Study performed: 03/27/2019 11:49:04 Patient Details The patient is a 73 year-old male Event Personnel Tim Gudino Welder Fitter Arc, Mera Feldman RN Parking Line Painter, Rayshawn Hernandez (R) Del Zhang Brad EARLY HEAD START DIRECTOR Monitor, Lisbeth Mendes Monitor, Marissa Russo RTR Monitor Procedures Performed Art Access - R radial artery Left Heart Cath w/or w/o Coronaries [id number] [facility] PERLA Revasc Graft Single RCA C9604 SVGREVSING , Left Heart Catheterization Indication Non-STEMI Risk Factors Peripheral Vascular Disease, Hypercholesterolemia, HypertensionRenal Failure Previous Procedures/Diagnoses Previous CABG Admission/Lab Medications/Medications given during procedure Midazolam (Versed) IV 2 mg, Fentanyl IV 25 mcg, Lidocaine Subcut 10 ml, Lidocaine Subcut 2 ml, Nitroglycerin IA 200 mcg, Verapamil IA 2.5 mg, Verapamil IA 2.5 mg, Heparin IV 5000 units, Angiomax IV 13 mg per kg, Angiomax IV 4.15 mg per kg, Ticagrelor PO 180 mg Procedure Narrative The patient was brought electively to the Cardiac Catheterization Laboratory and was prepped and draped in a sterile manner. The right wrist was infiltrated with 2% Lidocaine subcutaneous anesthesia. A Slender Glidesheath sheath was inserted into the right radial artery. Coronary angiography was performed using coronary diagnostic catheters. The right coronary system was accessed and visualized with a DCR: [place] 4.0 5fr catheter. The left [place] [address] CARDIAC CATH REPORT Name: VIRGILIO BHATT Room: [address] IN [facility]#: [id number] Admission: 03/25/19 Attend Phys: Margarita Vargas Discharge: 03/28/19 Date of : 41 Report #: [id number] and visualized with a AR2 Mod 5fr catheter. Left ventricular/Aortic Valve gradient assessed via catheter pullback. An aortogram of the ascending aorta was performed. Closure device was deployed with a Fr Vasc-Band Reg 24cm. The patient tolerated the procedure well and there were no complications associated with the procedure. There was no hematoma. Intraoperative Conscious Sedation Fentanyl 25 mcg Dose: 3089 mGy [place] Artery Percent Stenosis #1 widely patent vein graft to the diagonal and the distal circumflex #2 patent saphenous vein graft to the distal right coronary artery with 80 percent ostial proximal graft narrowing and 50% narrowing at the ostium of the posterior descending branch of the distal right coronary artery #3 flush filling of a patent MELLO graft on aortography Diagnostic Cath Left Main 90% calcified distal left main stenosis LAD 90% calcified proximal LAD stenosis with 100% mid vessel occlusion Circumflex 90% calcified proximal stenosis with 100% mid vessel occlusion Right Coronary 90% tubular mid vessel stenosis with total occlusion beyond the acute margin Left Ventriculography Left Ventriculography was not performed. Ascending aortography revealed 2 patent vein grafts and flush filling of a patent MELLO graft to the LAD Hemodynamics The aortic pressure is 128/39 mmHg with a mean of 70 mmHg. The left ventricular pressure is 154/8 mmHg with a mean of mmHg. The left ventricular end diastolic pressure is 18 mmHg. There was no gradient across the aortic valve upon pullback. PCI Technique Lesion Anticoagulation was achieved with Angiomax. Percutaneous coronary intervention was performed on the proximal [place] [address] CARDIAC CATH REPORT Name: VIRGILIO BHATT Room: [address]#: [id number] Admission: 03/25/19 Attend Phys: Margarita Vargas Discharge: 03/28/19 Date of : 41 Report #: [id number] the right coronary artery. The lesion stenosis prior to intervention was 80% with LAST 3 flow. A AR2 MOD Guide Catheter was used to engage the SVG to RCA ostium. A IG: BMW 190cm Interventional Guidewire was used to cross the lesion. STENT DEPLOYMENT A drug-eluting stent Xience Annamaria 2.82M00kl was inserted and inflated up to 20.00atm for 11seconds. Final angiography reveals 0 % stenosis with LAST 3 flow. Conclusion #1 severe coronary artery disease characterized by the following: A 90% calcified distal left main coronary artery stenosis B 90% calcified proximal LAD stenosis with 100% mid vessel occlusion C 90% calcified proximal circumflex narrowing with 100% mid vessel occlusion D 90% tubular mid right coronary stenosis with 100% stenosis beyond the acute margin #2 graft study characterized by the following: A patent saphenous vein graft to a diagonal branch of the LAD and the distal circumflex B patent saphenous vein graft to the distal right coronary artery with 80% proximal graft narrowing C flush filling of a patent MELLO graft to the LAD #3 moderate elevation of left ventricular end-diastolic pressure at rest #4 successful percutaneous coronary intervention with deployment of a drug-eluting stent at site of 80% narrowing in the proximal portion of the saphenous vein graft the right coronary artery with 0% residual narrowing and LAST-3 flow the distal vessel Recommendations Cardiac [place] [address] CARDIAC CATH REPORT Name: VIRGILIO BHATT Room: [address] IN M.R.#: [id number] Admission: 03/25/19 Attend Phys: Margarita Vargas Discharge: 03/28/19 Date of : 41 Report #: [id number] Aggressive Medical Therapy Medications Administered Aspirin (any) Ticagrelor Diagnostic Cath Approved by: Tim Gudino MD Date/Time: 03/28/2019 17:41:38 <ELECTRONICALLY SIGNED> By: Tim Gudino MD, [facility] 03/28/19 1746 1746 1746Tim Gudino MD, FACC /INF
--- NOTE | 2019-03-29 09:50 | CON ---
[address] [address] CONSULTATION Name: NOVAVIRGILIO CHEN Room: [address] IN M.R.#: [id number] Admission: 03/25/19 Attend Phys: Margarita Vargas Discharge: 03/28/19 Date of : 41 Report #: [id number] THIS REPORT FOR: //name// CC: Dileep Breen DATE OF SERVICE: 03/26/2019 REQUESTING PHYSICIAN: Dr. Chen. REASON FOR CONSULTATION: Assist in providing dialysis. HISTORY OF PRESENT ILLNESS: The patient is a very pleasant 73-year-old gentleman, with medical history significant for end-stage renal disease, coronary artery disease, status post bypass graft surgery, in 1988, presents with complaints of chest heaviness, dyspnea. Seen by Cardiology, diagnosed with a non-ST elevated myocardial infarction. Cardiac catheterization to be done on Wednesday and he was dialyzed yesterday. MEDICATIONS: Reviewed. SOCIAL HISTORY: No tobacco, no alcohol abuse. FAMILY HISTORY: Noncontributory. REVIEW OF SYSTEMS: Positive for the symptoms as I mentioned earlier, otherwise all systems reviewed and negative. PHYSICAL EXAMINATION: GENERAL: Awake, alert, oriented. VITAL SIGNS: Blood pressure 134/53, heart rate 62, afebrile. HEENT: Pupils round. NECK: Supple. LUNGS: Clear. CARDIOVASCULAR: Regular rate. ABDOMEN: Soft. EXTREMITIES: Lower extremities, no edema. LABORATORY DATA: Potassium is 4.4, BUN 24, creatinine 4.8, hemoglobin is 10.1. ASSESSMENT: 1. End-stage renal disease, dialysis is on Wednesday, , Wednesday schedule. The patient was dialyzed yesterday. 2. Coronary artery disease. 3. Hypertension. 4. [place] [address] CONSULTATION Name: VIRGILIO BHATT Room: [address]#: [id number] Admission: 03/25/19 Attend Phys: Margarita Vargas Discharge: 03/28/19 Date of : 41 Report #: [id number] PLAN: Continue dialysis on Wednesday, and Wednesday schedule. Cardiac catheterization tomorrow. Follow labs and fluid status. <ELECTRONICALLY SIGNED> By: Kevin Jimenez MD 03/29/19 0950 1203 0123Astanley Jimenez MD /EVONNE
== END 2019-03-28 16:00 | disposition home or self-care (01) | DRG 246 ==
LOC: M.ERS 20:29 → M.TBA-ER 03-25 00:06 → M.2W 03-25 00:06
PROVIDERS: Emergency Medicine; Internal Medicine; Internal Medicine Cardiovascular Disease; ADMIT Internal Medicine
DX: I21.4 Non-ST elevation (NSTEMI) myocardial infarction (principal); N18.6 End stage renal disease; I12.0 Hypertensive chronic kidney disease with stage 5 chronic kidney disease or end stage renal disease; I25.110 Atherosclerotic heart disease of native coronary artery with unstable angina pectoris; D64.9 Anemia, unspecified; E03.9 Hypothyroidism, unspecified; E11.51 Type 2 diabetes mellitus with diabetic peripheral angiopathy without gangrene; M19.90 Unspecified osteoarthritis, unspecified site; E78.5 Hyperlipidemia, unspecified; E11.22 Type 2 diabetes mellitus with diabetic chronic kidney disease; Z96.651 Presence of right artificial knee joint; Z99.2 Dependence on renal dialysis; Z95.1 Presence of aortocoronary bypass graft; Z79.82 Long term (current) use of aspirin; Z82.49 Family history of ischemic heart disease and other diseases of the circulatory system; Z95.0 Presence of cardiac pacemaker; Z87.891 Personal history of nicotine dependence; Z79.84 Long term (current) use of oral hypoglycemic drugs

== ENCOUNTER 2019-09-06 03:11 | Inpatient (IN) | payer MEDICARE ==
[~2019-09-06] VITALS: Ht 177.8 cm; Wt 78.0 kg
[~2019-09-06 03:11] MED LIST changes: +BRILINTA90 MG PO; +NITROGLYCERIN0.4 MG SUBLING
[2019-09-06 03:22] VITALS: BP 128/56
[2019-09-06 05:17] LABS: ABSOLUTE EOSINOPHILS 0.1 thou/uL (0.0-0.7); ABSOLUTE LYMPHOCYTES 0.7 thou/uL (0.8-5.3); ABSOLUTE MONOCYTES 0.5 thou/uL (0.0-1.2); ABSOLUTE NEUTROPHILS 2.8 thou/uL (1.6-8.1); BASOPHILS 0.9 %; EOSINOPHILS 2.5 %; HEMATOCRIT 30.4 % (42.0-52.0); HEMOGLOBIN 10.4 gm/dL (14.0-18.0); LYMPHOCYTES 16.3 %; MCH 33.5 pg (26.0-34.0); MCV 98.4 fL (80.0-100.0); MONOCYTES 11.5 %; MPV 7.7 fl. (7.2-11.1); NUCLEATED RBCS 0 /100WBC; PLATELET COUNT* 138 thou/uL (150-400); POLYS 68.8 %; RBC 3.09 mil/uL (4.50-6.00); RDW-CV 16.9 % (10.5-14.5); WBC 4.1 thou/uL (4.0-11.0)
[2019-09-06 05:25] LABS: PROTIME 10.4 Seconds (9.20-11.50)
[2019-09-06 05:44] LABS: ANION GAP 10 mmol/L (7-16); BUN 23 mg/dL (7-18); CALCIUM 8.7 mg/dL (8.5-10.1); CHLORIDE 103 mmol/L (98-107); CO2 31 mmol/L (21-32); CREATININE 5.5 mg/dL (0.6-1.3); GLUCOSE 84 mg/dL (70-99); POTASSIUM 3.9 mmol/L (3.5-5.1); SODIUM 144 mmol/L (136-145)
[2019-09-06 05:54] LABS: ALBUMIN 3.6 g/dL (3.4-5.0); ALKALINE PHOSPHATASE 99 U/L (46-116); NT-PRO BRAIN NAT PEPTIDE > 35000 pg/mL (<300); SGOT 17 U/L (15-37); SGPT 24 U/L (30-65); TOTAL BILIRUBIN 0.6 mg/dL (<0.1-1.0); TOTAL PROTEIN 7.2 g/dL (6.4-8.2)
[2019-09-06 06:25] LABS: URINE BILIRUBIN NEGATIVE (Negative); URINE BLOOD NEGATIVE (Negative); URINE CLARITY CLEAR; URINE COLOR YELLOW; URINE GLUCOSE-RANDOM 1+ (Negative); URINE KETONES NEGATIVE (Negative); URINE LEUKOCYTES-REFLEX NEGATIVE (Negative); URINE NITRITE-REFLEX NEGATIVE (Negative); URINE PROTEIN 2+ (Negative); URINE SPECIFIC GRAVITY 1.015 (1.005-1.030); URINE UROBILINOGEN 0.2 E.U./dl (0.2-1.0)
[2019-09-06 06:39] LABS: SQUAMOUS 0-3 Few /LPF (0-3)
[2019-09-06 06:41] LABS: BACTERIA-REFLEX 1-9 Few /HPF (None Seen); CASTS None Seen /LPF (None Seen); CRYSTALS None Seen /LPF (None Seen); MUCUS 0-3 Light strn/LPF (None Seen); URINE RBC 0-2 Rare /HPF (0-2); URINE WBC-REFLEX None Seen /HPF (0-5)
[2019-09-06 08:37] VITALS: BP 160/57
[2019-09-06 08:43] VITALS: BP 146/67
[2019-09-06 13:31] VITALS: BP 157/71
[2019-09-06 16:00] VITALS: BP 144/58
--- NOTE | 2019-09-06 18:28 | NUR ---
RECEIVED REPORT FROM ER. PT TRANSFERED TO [facility] FLOOR AROUND 0837, ASSUMED CARE. PT A&O X4, VSS. PT FEELING SOA WITH EXERTION, ON 2L PER NC O2 SATS >90%. PT ABLE TO BE OFF ON RA WHEN RESTING BUT AFTER ACTIVITY PT FEELS SOA AND REQUESTS TO BE BACK ON O2 - O2 SATS STAYING >90%. CHEMIST PROTEINS IN PLACE TRACING APACED TO VPACED/SR WITH BBB - PACER NOT SHOWING ON MONITOR AT TIMES. PT HAS DENIED PAIN THIS SHIFT. COMPLETED DIALYSIS. UP TO VOID A COUPLE TIMES THIS SHIFT, URINE YELLOW. FLUID RESTIRCTION MAINTAINED- PT ONLY HAS HAD ABOUT 250 ORAL INTAKE THIS SHIFT, ENCOURAGED PT TO DRINK A BIT MORE. PT COMMUNICATES UNDERSTANDING. SON VISITED THIS AFTERNOON. PT TOLERATING DIET. HOME TOMORROW IF FEELING LESS SOA. LOW FALL RISK PRECAUTIONS IN PLACE. CALL LIGHT IS WITHIN REACH, HOURLY ROUNDING PERFORMED.
[2019-09-06 20:00] VITALS: BP 107/43
[2019-09-07] VITALS: BP 100/43
[2019-09-07 04:00] VITALS: BP 104/42
[2019-09-07 05:10] LABS: CALCIUM 8.8 mg/dL (8.5-10.1); CREATININE 5.5 mg/dL (0.6-1.3); MAGNESIUM 2.3 mg/dL (1.8-2.4); POTASSIUM 4.3 mmol/L (3.5-5.1)
[2019-09-07] MEDS ORDERED: LEVAQUIN 500 M500 M1 PO (07:02)
[2019-09-07] MEDS ORDERED: PREDNISONE 20 M20 MG PO (07:02)
--- NOTE | 2019-09-07 07:15 | NUR ---
CHANGE OF SHIFT, BEDSIDE REPORT GIVEN PATIENT SEEN AT BEDSIDE, IN BED RESTING ASSUMED PATIENT CARE
[2019-09-07 07:30] VITALS: BP 132/54
--- NOTE | 2019-09-07 10:50 | NUR ---
Pt out of the room at dialysis, anticipate dc later today after dialysis.
--- NOTE | 2019-09-07 12:50 | EKG ---
[place] [address] ELECTROCARDIOGRAM REPORT Name: VIRGILIO BHATT Room: [address] ADM IN M.R.#: [id number] Admission: 09/06/19 Attend Phys: Timothy Pickering MD Discharge: Date of : 41 Report #: [id number] THIS REPORT FOR: //name// 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
[2019-09-07 13:08] LABS: HEPATITIS B SURFACE AG Negative (Negative)
--- NOTE | 2019-09-07 14:04 | 2DMMODE ---
[place] [address] 2 D/M-MODE ECHOCARDIOGRAM Name: VIRGILIO BHATT Room: [address] ADM IN M.R.#: [id number] Admission: 09/06/19 Attend Phys: Timothy Pickering, Discharge: Date of : 41 Date of Service: 09/07/19 1404 Report #: [id number] THIS REPORT FOR: //name// APPROVED REPORT Study performed: 09/07/2019 09:02:59 EXAM: Comprehensive 2D, Doppler, and color-flow Echocardiogram Patient Location: Bedside BSA: 1.97 HR: 71 bpm BP: 135/54 mmHg Other Information Study Quality: Good Indications Dyspnea 2D Dimensions IVSd: 19.99 (7-11mm) LVOT Diam: 23.29 (18-24mm) LVDd: 45.63 mm PWd: 13.36 (7-11mm) Ascending Ao: 31.65 (22-36mm) LVDs: 39.72 (25-40mm) Aortic Root: 30.60 mm Volumes Left Atrial Volume (Systole) LA ESV Index: 31.70 mL/m2 Aortic Valve AoV Peak Mustapha.: 1.50 m/s AO Peak Gr.: 9.01 mmHg LVOT Max P.12 mmHg AO Mean Gr.: 5.16 mmHg LVOT Mean P.13 mmHg LVOT Max V: 0.73 m/s AO V2 VTI: 30.96 cm LVOT Mean V: 0.50 m/s GARIMA (VTI): 2.28 cm2 LVOT V1 VTI: 16.58 cm Mitral Valve E/A Ratio: 1.52 MV Decel. Time: 178.19 ms MV E Max Mustapha.: 0.92 m/s MV PHT: 51.67 ms MVA (PHT): 4.26 [place]2 [place] [address] 2 D/M-MODE ECHOCARDIOGRAM Name: VIRGILIO BHATT Room: [address] IN .R.#: [id number] Admission: 09/06/19 Attend Phys: Timothy Pickering, Discharge: Date of : 41 Date of Service: 09/07/19 1404 Report #: [id number] TDI E/Lateral E': 13.14 E/Medial E': 13.14 Medial E' Mustapha.: 0.07 m/s Lateral E' Mustapha.: 0.07 m/s Pulmonary Valve PV Peak Mustapha.: 1.25 m/s PV Peak Gr.: 6.24 mmHg Tricuspid Valve RAP Estimate: 5.00 mmHg TR Peak Gr.: 51.88 mmHg RVSP: 56.88 mmHg PA Pressure: 56.88 mmHg Left Ventricle The left ventricle is normal size. There is global hypokinesis of the left ventricle. paradoxical septal motion consistent with a paced rhythm Concentric left ventricular hypertrophy. Left ventricular systolic function is mildly decreased. LVEF is 35-40%. Right Ventricle The right ventricle is normal size. The right ventricular systolic function is normal. Pacemaker lead is present in the right ventricle. Atria Left atrium is mildly dilated. Lipomatous hypertrophy of the interatrial septum is noted. The right atrium size is normal. Aortic Valve The Aortic valve is sclerotic. Trace aortic regurgitation. There is no aortic valvular stenosis. Mitral Valve The mitral valve is normal in structure. Mild mitral regurgitation. No evidence of mitral valve stenosis. Tricuspid Valve The tricuspid valve is normal in structure. Trace tricuspid regurgitation. estimated pa pressure 55 mm Hg Pulmonic Valve The pulmonary valve is normal in structure. Mild pulmonic regurgitation. Great Vessels The aortic root is normal in size. IVC is [place] [address] 2 D/M-MODE ECHOCARDIOGRAM Name: VIRGILIO BHATT Room: [address] IN ..#: [id number] Admission: 09/06/19 Attend Phys: Timothy Pickering, Discharge: Date of : 41 Date of Service: 09/07/19 1404 Report #: [id number] collapses >50% with inspiration. Pericardium Pericardial effusion. <Conclusion> Concentric left ventricular hypertrophy. LVEF is 35-40%. Left atrium is mildly dilated. The Aortic valve is sclerotic. Mild mitral regurgitation. Trace tricuspid regurgitation. estimated pa pressure 55 mm Hg <ELECTRONICALLY SIGNED> By: Clyde Ramirez MD, FACC 09/07/19 1404 03 03 Clyde Ramirez MD, FACC /INF
[2019-09-07 15:46] VITALS: BP 141/54
[2019-09-07 20:00] VITALS: BP 119/98
[2019-09-08] VITALS: BP 124/39
[2019-09-08 03:28] VITALS: BP 120/58
[2019-09-08 07:04] VITALS: BP 139/68
--- NOTE | 2019-09-08 09:24 | CON ---
[address] [address] CONSULTATION Name: BECKYGROVERVIRGILIO CHEN Room: [address] IN M.R.#: [id number] Admission: 09/06/19 Attend Phys: Timothy Pickering MD Discharge: Date of : 41 Report #: [id number] THIS REPORT FOR: //name// CC: Dileep Pickering DATE OF SERVICE: 09/07/2019 PULMONARY CONSULTATION CONSULTING PHYSICIAN: Timothy Pickering MD. REASON FOR NEPHROLOGY CONSULTATION: End-stage renal disease, on maintenance hemodialysis. REASON FOR ADMISSION: Shortness of breath on exertion. HISTORY OF PRESENT ILLNESS: This is a 74-year-old male with past medical history of end-stage renal disease, on hemodialysis at [facility] under the care of Dr. Decker and he has been on dialysis for around three years, has a history of diabetes type 2, hypertension and other medical problems came in because for 2 days prior to admission, he was having shortness of breath on exertion just moving around in the house. His last dialysis before coming into the hospital was on Wednesday, but normally his dialysis days are Wednesday, , Wednesday and his schedule was altered this week because of the holiday schedule. Yesterday, when he came in, his chest x-ray showed bilateral opacities with mostly left pleural effusion and possible left-sided pneumonia and primary team was concerned about fluid overload and we tried to dialyze him. We were only able to remove 1 liter off of him because he had severe cramping and his blood pressure also did not tolerate it. He is due for dialysis again today. He is getting antibiotic and he is also getting cardiac workup in the form of echocardiogram today. He has no lower extremity edema. He says he is generally very compliant with dialysis and his diet and fluid intake. ALLERGIES: No known allergies. REVIEW OF SYSTEMS: As mentioned in history of present illness, otherwise 10-point review of systems are negative. PAST MEDICAL AND SURGICAL HISTORY: Includes end-stage renal disease on hemodialysis every Wednesday, , Wednesday; history of diabetes type 2; history of hypertension; history of peripheral vascular disease and aortofemoral bypass in 1999; coronary artery disease with a quadruple CABG in 1997; three arthroscopic surgeries, left knee; total knee replacement right side, infected with surgery to clean out the knee; hypertension; ESRD; [place] [address] CONSULTATION Name: VIRGILIO BHATT Room: [address] IN [facility]#: [id number] Admission: 09/06/19 Attend Phys: Timothy Pickering MD Discharge: Date of : 43 Report #: [id number] congestive heart failure, as well as systolic congestive heart failure; ejection fraction 40% in 03/2019. FAMILY HISTORY: Noncontributory. SOCIAL HISTORY: He does not smoke or drink alcohol or use illicit drugs. He used to smoke in the past and he lives with his family. HOME MEDICATIONS: Include Renal Caps, furosemide, atorvastatin, carvedilol, doxazosin, glimepiride, hydralazine, insulin glargine, levothyroxine, cholecalciferol, amlodipine, aspirin, ____, nitroglycerin. PHYSICAL EXAMINATION: VITAL SIGNS: Blood pressure is 132/54, pulse ox 95% on 2 liters of oxygen via nasal cannula, temperature 37.2, pulse rate is 72, respiratory rate is 18. GENERAL: He is awake, alert, oriented x 3. No shortness of breath currently at rest. HEAD AND EYES: Atraumatic, normocephalic. Normal conjunctivae. EARS, NOSE, AND THROAT: Normal ears and nose. Mucous membranes are moist. NECK: No JVD. CHEST: Bilaterally well, right side is clearer as compared to the left side, but he has bilateral wheezing, but breath sounds are more so decreased in the left side and more wheezing on the left side, especially left base. ABDOMEN: Soft, nondistended, nontender. Bowel sounds are present. CARDIOVASCULAR: S1, S2 normal. No murmurs. EXTREMITIES: There is no lower extremity edema. DIALYSIS ACCESS: He has a radiocephalic fistula on the left side with good bruit and thrill, left arm. PSYCHIATRIC: Mood and affect seems normal. NEUROLOGIC: Neurological function is grossly intact. LABORATORY DATA: Hemoglobin is 10.4. His potassium is 4.3 and other labs were reviewed. IMAGING: Chest x-ray was reviewed. ASSESSMENT: 1. End-stage renal disease and he is on hemodialysis every Wednesday, and Wednesday. 2. History of diabetes type 2. 3. Hypertension. Blood pressure is controlled. 4. Dyspnea on exertion, acute hypoxic respiratory failure. This is likely in the setting of lower respiratory tract infection, pneumonia and primary team has given him antibiotics for that. 5. Peripheral vascular disease. 6. [place] [address] CONSULTATION Name: VIRGILIO BHATT Room: [address] IN M.R.#: [id number] Admission: 09/06/19 Attend Phys: Timothy Pickering MD Discharge: Date of : 43 Report #: [id number] 7. [id number] systolic and diastolic congestive heart failure, but he does not look like in fluid overload now. PLAN: 1. I agree with getting an echo done and doing some cardiac workup on him. 2. I do not think he is in fluid overload. We will dialyze him today because of his regular dialysis schedule. 3. He should be on 1 liter of fluid restriction a day. Thank you for this consultation. We will continue to follow for dialysis needs, discussed with the patient and dialysis nurse. <ELECTRONICALLY SIGNED> By: Radha Byrnes MD 09/08/19 0924 0942 [id number] Byrnes MD /nt
--- NOTE | 2019-09-08 12:48 | NUR ---
Pt is A&O. Resides at home alone. Active and independent. No DME. No hx of HH or SNF. Pt is current at [facility] on at schedule, chair time is 5:30am. Spoke with , anticipate dc to home today. CM to fax flowsheets.
[2019-09-08 12:57] VITALS: BP 143/62
--- NOTE | 2019-09-08 12:57 | NUR ---
Pt discharging to home today, faxed flow sheets to [facility] [phone]
[2019-09-08 13:00] VITALS: BP 143/62
--- NOTE | 2019-09-08 13:54 | NUR ---
ASSESSMENT COMPLETE. PT ALERT AND ORIENTED X4. PT DC HOME. INSTRUCTIONS GIVEN AND PATIENT VERBALIZES UNDERSTANDING. IV DC'D WITHOUT COMPLICATIONS. PRESCRIPTIONS CALLED INTO PHARMACY. PATIENT WILL GO TO DIALYSIS TOMORROW. ALL BELONGINGS SENT WITH PATIENT. SEE ASSESSMENT AND VITALS FOR OTHER DETAILS. CALL LIGHT WITHIN REACH, WILL CONTINUE PLAN OF CARE
[2019-09-08] MEDS ORDERED: LEVAQUIN 500 M500 M1 PO (14:08)
== END 2019-09-08 14:00 | disposition home or self-care (01) | DRG 291 ==
LOC: M.ERS 03:11 → M.TBA-ER 06:43 → M.2W 06:43
PROVIDERS: Emergency Medicine; Internal Medicine; ADMIT Internal Medicine
PROC: 5A1D70Z Performance of Urinary Filtration, Intermittent, Less than 6 Hours Per Day (ICD-10-PCS; principal; 2019-09-06)
PROC: 5A1D70Z Performance of Urinary Filtration, Intermittent, Less than 6 Hours Per Day (ICD-10-PCS; 2019-09-07)
DX: I13.2 Hypertensive heart and chronic kidney disease with heart failure and with stage 5 chronic kidney disease, or end stage renal disease (principal); J18.9 Pneumonia, unspecified organism; J96.01 Acute respiratory failure with hypoxia; N18.6 End stage renal disease; I50.43 Acute on chronic combined systolic (congestive) and diastolic (congestive) heart failure; J81.0 Acute pulmonary edema; Z99.2 Dependence on renal dialysis; E11.22 Type 2 diabetes mellitus with diabetic chronic kidney disease; E11.51 Type 2 diabetes mellitus with diabetic peripheral angiopathy without gangrene; I25.10 Atherosclerotic heart disease of native coronary artery without angina pectoris; Z96.651 Presence of right artificial knee joint; E03.9 Hypothyroidism, unspecified; Z87.891 Personal history of nicotine dependence; Z95.1 Presence of aortocoronary bypass graft; Z79.899 Other long term (current) drug therapy

== ENCOUNTER 2019-09-23 20:31 | Inpatient (IN) | payer MEDICARE ==
[~2019-09-23] VITALS: Ht 177.8 cm; Wt 81.2 kg
[~2019-09-23 20:31] MED LIST changes: +LEVAQUIN 500 M500 M1 PO; +PREDNISONE 20 M20 MG PO
[2019-09-23 20:33] VITALS: BP 166/101
--- NOTE | 2019-09-23 20:40 | NUR ---
pt very anxious and restless. RT/, RNx2 at bedside encouring pt to to leave BIPAP on
[2019-09-23 21:09] LABS: ABSOLUTE BASOPHILS 0.1 thou/uL (0.0-0.2); ABSOLUTE EOSINOPHILS 0.1 thou/uL (0.0-0.7); ABSOLUTE LYMPHOCYTES 1.7 thou/uL (0.8-5.3); ABSOLUTE MONOCYTES 1.1 thou/uL (0.0-1.2); ABSOLUTE NEUTROPHILS 12.6 thou/uL (1.6-8.1); BASOPHILS 0.6 %; EOSINOPHILS 0.5 %; HEMATOCRIT 35.5 % (42.0-52.0); HEMOGLOBIN 11.7 gm/dL (14.0-18.0); LYMPHOCYTES 11.2 %; MCH 33.6 pg (26.0-34.0); MCHC 33.1 g/dL (28.0-37.0); MCV 101.7 fL (80.0-100.0); MONOCYTES 7.3 %; NUCLEATED RBCS 0 /100WBC; PLATELET COUNT* 159 thou/uL (150-400); POLYS 80.4 %; RBC 3.49 mil/uL (4.50-6.00); RDW-CV 18.8 % (10.5-14.5); WBC 15.6 thou/uL (4.0-11.0)
[2019-09-23 21:22] LABS: ANION GAP 15 mmol/L (7-16); BUN 38 mg/dL (7-18); CALCIUM 8.5 mg/dL (8.5-10.1); CHLORIDE 97 mmol/L (98-107); CO2 27 mmol/L (21-32); CREATININE 5.5 mg/dL (0.6-1.3); GLUCOSE 263 mg/dL (70-99); POTASSIUM 3.9 mmol/L (3.5-5.1); SODIUM 139 mmol/L (136-145)
[2019-09-23 21:31] LABS: INR 1.1; PROTIME 10.9 Seconds (9.20-11.50)
[2019-09-23 21:33] LABS: ALBUMIN 3.7 g/dL (3.4-5.0); ALKALINE PHOSPHATASE 100 U/L (46-116); NT-PRO BRAIN NAT PEPTIDE > 35000 pg/mL (<300); SGOT 26 U/L (15-37); SGPT 26 U/L (30-65); TOTAL BILIRUBIN 1.3 mg/dL (<0.1-1.0); TOTAL PROTEIN 7.6 g/dL (6.4-8.2)
[2019-09-23 21:45] LABS: BE -2.4 mmol/L (-2 to +3); PCO2 34.8 mmHg (35.0-45.0); PO2 105.3 mmHg (75.0-100.0); pH 7.409 (7.340-7.450)
--- NOTE | 2019-09-23 21:57 | NUR ---
Dr. Chen at bedside speaking to pt and family about results and possible admission
[2019-09-24 00:45] VITALS: BP 100/49
[2019-09-24 07:20] VITALS: BP 124/61
--- NOTE | 2019-09-24 10:37 | EKG ---
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[place] : 1945 Requested By: Tabitha Chen Order Number: [id number] MD: Ryley King Measurements Intervals [place] Rate: 133 P: 78 PA: 220 QRS: -18 QRSD: 177 T: 81 QT: 401 QTc: 597 Interpretive Statements Sinus tachycardia Atrial premature complex Prolonged PA interval LAE, consider biatrial enlargement Left bundle branch block Compared to ECG 09/06/2019 03:23:11 Atrial premature complex(es) now present First degree AV block now present Sinus rhythm no longer present Electronically Signed On 09-24-2019 10:37:16 FAMILY MEDICINE CHAIR by Ryley King [email or web address] <ELECTRONICALLY SIGNED> By: Iris King MD, FACC 09/24/19 1037 42 42 Iris King MD, FAC /EPI
--- NOTE | 2019-09-24 10:38 | EKG ---
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[place] : 1945 Requested By: Tabitha Chen Order Number: [id number] MD: Ryley King Measurements Intervals [place] Rate: 106 P: -30 WI: 151 QRS: -41 QRSD: 173 T: 149 QT: 401 QTc: 533 Interpretive Statements Sinus tachycardia Left bundle branch block Compared to ECG 09/06/2019 03:23:11 Sinus rhythm no longer present Electronically Signed On 09-24-2019 10:37:36 BRIDGE MAINTAINER by Ryley King [email or web address] <ELECTRONICALLY SIGNED> By: Iris King MD, FAC 09/24/19 1037 2215 2215 Iris King MD, [facility] /EPI
--- NOTE | 2019-09-24 12:30 | NUR ---
PATIENT WENT WITH HERMILA PASTRANA FOR DIALYSIS IN ROOM 319.
[2019-09-24 13:51] VITALS: BP 126/58
[2019-09-24 15:12] LABS: ANION GAP 11 mmol/L (7-16); APTT 29.6 Seconds (25.0-31.3); BUN 45 mg/dL (7-18); CHLORIDE 99 mmol/L (98-107); CO2 31 mmol/L (21-32); CREATININE 6.1 mg/dL (0.6-1.3); GLUCOSE 113 mg/dL (70-99); POTASSIUM 3.9 mmol/L (3.5-5.1); PROTIME 10.7 Seconds (9.20-11.50); SODIUM 141 mmol/L (136-145)
[2019-09-24 15:26] LABS: CHOLESTEROL 124 mg/dL (<200); HDL CHOLESTEROL 41 mg/dL (>40); LDL CHOLESTEROL 58 mg/dL (<100); SERUM ASSESSMENT Clear; TRIGLYCERIDE 129 mg/dL (<150); VLDL 26 mg/dL (<40)
--- NOTE | 2019-09-24 17:00 | NUR ---
PT ADMITTED TO ROOM 215 FROM DIALYSIS WITH RESPIRATORY DISTRESS,ELEVATED TROPONIN. PT STARTED ON HEP GTT IN ED AND RESUMED ON ADMISSION TO FLOOR ON PROTOCOL. PT VSS ON RA. PT HAS PACEMAKER TO LEFT CHEST. NITRO PASTE APPLIED TO MID STERNUM. PT EDUCATED TO TREATMENTS,MEDICATIONS,SIDE EFFECTS, DIET AND PLAN OF CARE. PT UNDERSTANDS FALL RISK PROTOCOL. WILL CALL WHEN NEEDED. PT COMFORTABLE and DENIES PAIN. CALL LIGHT IN REACH.
[2019-09-24 17:51] VITALS: BP 137/64
[2019-09-24 23:10] LABS: MAGNESIUM 2.2 mg/dL (1.8-2.4); PHOSPHORUS* 3.3 mg/dL (2.5-4.9)
[2019-09-25] VITALS (15 sets, daily range): BP systolic 104–167; BP diastolic 48–68
[2019-09-25 01:05] LABS: AMP/METHAMP Negative (Negative); BARBITURATES Negative (Negative); BENZODIAZEPINES Negative (Negative); COCAINE Negative (Negative); METHADONE Negative (Negative); OPIATES Negative (Negative); PCP Negative (Negative); THC Negative (Negative)
[2019-09-25 05:46] LABS: HEMATOCRIT 26.6 % (42.0-52.0); MCHC 34.3 g/dL (28.0-37.0); MCV 99.1 fL (80.0-100.0); MPV 7.7 fl. (7.2-11.1); RBC 2.68 mil/uL (4.50-6.00); RDW-CV 18.5 % (10.5-14.5); WBC 5.3 thou/uL (4.0-11.0)
[2019-09-25 05:58] LABS: HEMOGLOBIN 9.1 gm/dL (14.0-18.0)
[2019-09-25 06:09] LABS: ALBUMIN 2.9 g/dL (3.4-5.0); CALCIUM 8.1 mg/dL (8.5-10.1); PHOSPHORUS* 4.2 mg/dL (2.5-4.9); POTASSIUM 3.6 mmol/L (3.5-5.1)
[2019-09-25 06:29] LABS: ALBUMIN 2.9 g/dL (3.4-5.0); CALCIUM 8.1 mg/dL (8.5-10.1); CREATININE 7.1 mg/dL (0.6-1.3); POTASSIUM 3.6 mmol/L (3.5-5.1); TOTAL BILIRUBIN 0.7 mg/dL (<0.1-1.0); TOTAL PROTEIN 6.2 g/dL (6.4-8.2)
--- NOTE | 2019-09-25 07:03 | NUR ---
HEPARIN GTT INFUSING AT 1310 UNITS/HR. APTT THERAPEUTIC. PATIENT SCHEDULED FOR TUBE BUFFER PROCEDURE TODAY. WENT TO CT DURING THE SHIFT. PATIENT SLEEPING COMFORTABLY IN BED. NO SIGNIFICANT EVENTS THIS SHIFT.
--- NOTE | 2019-09-25 11:39 | NUR ---
Nutrition: Pt admitted with pulm edema. 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 ESRD on HD, DM on insulin, CAD, CHF. Wt: 180#. Labs: BUN 52, cr 7.1, GFR 8, alb 2.9, BG 59-`73, Hgb 9.1. Please advance diet to Renal once clinically able. No other nutrition interventions needed at this time. Mild risk. Will follow up per protocol.
--- NOTE | 2019-09-25 13:54 | CON ---
[address] [address] CONSULTATION Name: NOVAVIRGILIO CHEN Room: [address] IN M.R.#: [id number] Admission: 09/23/19 Attend Phys: Brenna Lira MD Discharge: Date of : 43 Report #: [id number] THIS REPORT FOR: //name// CC: Dileep Lira DATE OF SERVICE: 09/24/2019 NEPHROLOGY CONSULTATION CONSULTING PHYSICIAN: Dr. Lira REASON FOR CONSULTATION: End-stage kidney disease. HISTORY OF PRESENT ILLNESS: This is a 74-year-old gentleman with a history of end-stage kidney disease, on dialysis on Tuesdays, , and Saturdays. Due to weather related conditions, he was dialyzed on Wednesday instead of Wednesday. He had his normal fluid removed, but his dry weight has been recently adjusted. It was initially raised because he was having some cramping issues, but once those resolved, his dry weight was again being lowered. He comes in with shortness of breath and has some evidence of pulmonary edema on his chest x-ray. His troponin was also elevated, and Cardiology has been consulted. His breathing is somewhat better now. He currently does not have any complaints and appears to be comfortable. REVIEW OF SYSTEMS: Constitutional, psych, heme, eyes, ENT, respiratory, cardiac, GI, , and endocrine are all negative except as documented above. PAST MEDICAL HISTORY: End-stage kidney disease, diabetes type 2, hypertension, peripheral vascular disease with history of aortofemoral bypass in 1999, coronary artery disease with a history of 4-vessel CABG in 1997, history of knee replacement, and hypertension. FAMILY HISTORY: Noncontributory in this 74-year-old gentleman. SOCIAL HISTORY: No tobacco. CURRENT MEDICATIONS: Reviewed. PHYSICAL EXAMINATION: VITAL SIGNS: Blood pressure is 126/58, pulse 63, respirations 15, and temperature 36.0. GENERAL: No acute distress. EYES: Open. EARS: Externally normal. NECK: [place] [address] CONSULTATION Name: VIRGILIO BHATT Room: [address] IN ..#: [id number] Admission: 09/23/19 Attend Phys: Brenna Lira MD Discharge: Date of : 43 Report #: [id number] CARDIOVASCULAR: Regular rate. LUNGS: Diminished breath sounds. ABDOMEN: Soft. MUSCULOSKELETAL: Nontender. PSYCHIATRIC: Awake and alert. LABORATORY DATA: White cell count 15.6, hemoglobin 11.7, and platelets 159. Sodium 139, potassium 3.9, chloride 97, bicarbonate 27, BUN 38, creatinine 5.5, and calcium 8.5. Chest x-ray shows pulmonary edema. ASSESSMENT: 1. End-stage kidney disease, hemodialysis on Tuesdays, , and Saturdays at the [facility]. 2. Pulmonary edema. 3. Hypertension. 4. Elevated troponin. Cardiology has been consulted. PLAN: We will ultrafilter today for some volume removal to help with the pulmonary edema. We will otherwise continue his maintenance dialysis on Wednesday, , and Wednesday basis and follow along with you. We will follow for dialysis needs. Please call with any questions in the interim. Thank you for requesting my opinion in the care and management of this patient. <ELECTRONICALLY SIGNED> By: Chelsea Decker MD 09/25/19 1354 1051 1202Abarron Decker MD /nt
--- NOTE | 2019-09-25 15:35 | NUR ---
Pt out of room when CM went to assess, will f/u later
--- NOTE | 2019-09-25 17:06 | EKG ---
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: [place] : 1945 Requested By: Tabitha Chen Order Number: [id number] Leonie MD: Orville Austin Measurements Intervals [place] Rate: 67 P: 40 [place]: 206 QRS: -52 QRSD: 176 T: 152 QT: 516 QTc: 545 Interpretive Statements Sinus rhythm Left bundle branch block Compared to ECG 09/23/2019 22:15:47 Sinus tachycardia no longer present Electronically Signed On 09-25-2019 17:05:32 PACKAGING MACHINE SUPPLIES DISTRIBUTOR by Orville Austin [email or web address] <ELECTRONICALLY SIGNED> By: Orville Austin MD, [facility] 09/25/19 1705 0604 0604 Orville Austin MD, [facility] /EPI
--- NOTE | 2019-09-25 17:15 | EKG ---
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: : 1945 Requested By: Tim Gudino Order Number: [id number] MD: Orville Austin Measurements Intervals [place] Rate: 66 P: 66 [place]: 193 QRS: 25 QRSD: 97 T: 205 QT: 461 QTc: 484 Interpretive Statements Sinus rhythm LVH w/ repol abnormalities, possible ischemia Compared to ECG 09/23/2019 22:15:47 Possible ischemia now present Sinus tachycardia no longer present Left bundle-branch block no longer present Electronically Signed On 09-25-2019 17:15:20 CERTIFIED REGISTERED LOCKSMITH by Orville Austin [email or web address] <ELECTRONICALLY SIGNED> By: Orville Austin MD, FACC 09/25/19 1715 1441 1441 Orville Austin MD, [facility] /EPI
[2019-09-26 00:19] VITALS: BP 123/61
[2019-09-26 04:33] VITALS: BP 117/66
--- NOTE | 2019-09-26 04:50 | NUR ---
ASSUMED CARE AT [address], ON RA AND TOLERATED.NO BLEEDING AND NO RESPIRATORY DISTRESS NOTED.FOR POSSIBLE HD TODAY.NO CHEST PAIN.CONTINUE CARING AND TOWARD GOALS.
[2019-09-26 05:51] LABS: HEMATOCRIT 29.1 % (42.0-52.0); HEMOGLOBIN 9.9 gm/dL (14.0-18.0); MCH 33.6 pg (26.0-34.0); MCV 98.9 fL (80.0-100.0); MPV 7.8 fl. (7.2-11.1); NUCLEATED RBCS 0 /100WBC; PLATELET COUNT* 135 thou/uL (150-400); RBC 2.94 mil/uL (4.50-6.00); RDW-CV 18.3 % (10.5-14.5); WBC 9.2 thou/uL (4.0-11.0)
[2019-09-26 06:16] LABS: ALBUMIN 3.2 g/dL (3.4-5.0); CALCIUM 8.4 mg/dL (8.5-10.1); POTASSIUM 4.2 mmol/L (3.5-5.1); TOTAL BILIRUBIN 0.9 mg/dL (<0.1-1.0)
[2019-09-26 06:19] LABS: TROPONIN-I LEVEL 4.39 ng/mL (<0.06)
[2019-09-26 06:36] LABS: ABSOLUTE LYMPHOCYTES 0.6 thou/uL (0.8-5.3); ABSOLUTE MONOCYTES 0.1 thou/uL (0.0-1.2); ABSOLUTE NEUTROPHILS 8.5 thou/uL (1.6-8.1); ATYPICAL LYMPHS 1 %; PLATELET ESTIMATE ADEQUATE
[2019-09-26 07:30] VITALS: BP 132/59
[2019-09-26 13:10] VITALS: BP 114/48
--- NOTE | 2019-09-26 14:41 | EKG ---
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: : 1945 Requested By: Tim Gudino Order Number: [id number] Leonie MD: Orville Austin Measurements Intervals [place] Rate: 72 P: 53 [place]: 194 QRS: 44 QRSD: 183 T: 214 QT: 503 QTc: 551 Interpretive Statements Sinus rhythm Left bundle branch block Compared to ECG 09/25/2019 14:41:42 Left bundle-branch block now present Possible ischemia no longer present Electronically Signed On 09-26-2019 14:40:57 BARREL RAISER by Orville Austin [email or web address] <ELECTRONICALLY SIGNED> By: Orville Austin MD, [facility] 09/26/19 1440 1325 1325 Orville Austin MD, [facility] /EPI
--- NOTE | 2019-09-26 16:53 | 2DMMODE ---
[place] [address] 2 D/M-MODE ECHOCARDIOGRAM Name: VIRGILIO BHATT APRIL Room: [facility] ADM IN [facility]#: [id number] Admission: 09/23/19 Attend Phys: Brenna Lira, Discharge: Date of : 41 Date of Service: 09/26/19 165 Report #: [id number] THIS REPORT FOR: //name// APPROVED REPORT Study performed: 09/26/2019 14:16:20 EXAM: Limited 2D Echocardiogram Patient Location: In-Patient Room #: [facility] Status: routine BSA: 1.99 HR: 77 bpm BP: 117/66 mmHg Rhythm: NSR Other Information Study Quality: Good Indications Acute LA 2D Dimensions IVSd: 10.63 (7-11mm) LVDd: 58.36 mm PWd: 11.87 (7-11mm) LVDs: 46.43 (25-40mm) Left Ventricle Left ventricle is mildly dilated. There is hypokinesis of the anterior wall with focal akinesis septum. There is normal left ventricular wall thickness. Left ventricular systolic function is moderately decreased. LVEF is 35-40%. Right Ventricle The right ventricle is normal size. The right ventricular systolic function is normal. Pacemaker lead is present in the right ventricle. Atria Left atrium is mildly dilated. Lipomatous hypertrophy of the interatrial septum is noted. Aortic Valve Mild aortic valve sclerosis[place] [address] 2 D/M-MODE ECHOCARDIOGRAM Name: VIRGILIO BHATT Room: [address] IN M.R.#: [id number] Admission: 09/23/19 Attend Phys: Brenna Lira, Discharge: Date of : 41 Date of Service: 09/26/191651 Report #: [id number] The mitral valve is normal in structure. Tricuspid Valve The tricuspid valve is normal in structure. Pulmonic Valve The pulmonary valve is normal in structure. Great Vessels The aortic root is normal in size. IVC is normal in size and collapses >50% with inspiration. Pericardium There is no pericardial effusion. <Conclusion> Left ventricle is mildly dilated. There is normal left ventricular wall thickness. Left ventricular systolic function is moderately decreased. LVEF is 35-40%. Pacemaker lead is present in the right ventricle. Left atrium is mildly dilated. Mild aortic valve sclerosis. IVC is normal in size and collapses >50% with inspiration. <ELECTRONICALLY SIGNED> By: Orville Austin MD, [facility] 09/26/191651 51 1652 Orville Austin MD, FACC /INF
[2019-09-26 18:00] VITALS: BP 138/63
--- NOTE | 2019-09-26 18:20 | NUR ---
ASSUMED PT CARE AT 0730, FULL ASSESMENT DONE CHARTED. PT A/O X4, DENIES CP, PT TO DIALYSIS THIS AM, 2L REMOVED. PT RETURNED TO ROOM AT APPROX 1220. PTS BP SOFT, PT C/O SOME DIZZYNESS ON STANDING. PT INSTRUCTED TO ASK FOR HELP AMBULATING AT THIS TIME. PT VERBALIZED UNDERSTANDING. RECHECKED PTS BP BACK UP. DISCHARGE ORDERS RECIEVED. DISCUSSED INSTRUCTIONS WITH PT AND DAUGHTER. BOTH VERBALIZED UNDERSTANDING. PT LEFT AT APPROX 1815
--- NOTE | 2019-09-28 12:23 | CON ---
[address] [address] CONSULTATION Name: TYREL BHATT Room: [address] IN M.R.#: [id number] Admission: 09/23/19 Attend Phys: Brenna Lira MD Discharge: 09/26/19 Date of : 41 Report #: [id number] THIS REPORT FOR: //name// CC: Dileep Lira DATE OF SERVICE: 09/24/2019 CARDIOLOGY CONSULTATION HISTORY OF PRESENT ILLNESS: I was asked by the Emergency Room physician to see this 74-year-old white male in Cardiology consultation for evaluation and treatment of troponin elevation to 8.9. This man presented with flash pulmonary edema. He has actually had increasing episodes of shortness of breath over the last 2 months. He had several episodes and typically they were provoked by exertion. This episode was not provoked by exertion, but did get worse with activity. It was better with rest. It was associated with shortness of breath, some nausea, no vomiting, and some diaphoresis. It was better with nitroglycerin after he got to the ER. He did go into pulmonary edema. He did not have chest pain. These symptoms and this syndrome are similar to one which he had last March when he got a stent to a vein graft to his right coronary artery. I believe there was an 80% proximal obstruction. There was a 50% obstruction and another vein graft, I believe, to the circumflex. That vessel was not stented. He does have a long history of coronary artery disease, status post coronary artery bypass graft surgery some 20 years ago at [facility]. He does have end-stage renal disease. He is on hemodialysis. He does have recent pneumonia that has been bothering him for some time now, and he has bilateral pleural effusions as well as an infiltrate. He has a history of PAD that is severe, and he has had stents and surgery on both legs. He has an ischemic cardiomyopathy with an ejection fraction of 35-40%. There is mild mitral regurgitation. He has essential hypertension, insulin-dependent diabetes mellitus, hyperlipidemia, and hypothyroidism. He has chronic combined congestive heart failure. He has not had syncope or near syncope a week ago with low blood sugar. Coronary risk factors include past history of smoking. He does have high cholesterol. He is on atorvastatin. He does have diabetes. He does have high blood pressures and family history of heart disease. He does have renal disease with renal failure. He apparently does have carotid bruits. He has had TIAs and strokes. He does have peripheral vascular disease in the legs. He does have claudication. He does not have any open or nonhealing wounds. I believe his surgery on his legs was also at [facility] some time ago, I believe that was in 1999. The bypass surgery was in 1997. ALLERGIES: He has no known allergies. MEDICATIONS: His medication list is extensive and includes Norvasc 5 mg daily, aspirin 81 mg daily, atorvastatin 20 mg daily, carvedilol 12.[address] [place] [address] CONSULTATION Name: TYREL BHATT Room: [address]#: [id number] Admission: 09/23/19 Attend Phys: Brenna Lira MD Discharge: 09/26/19 Date of : 41 Report #: [id number] furosemide 20 mg daily, glimepiride 2 mg daily, hydralazine 50 mg b.i.d., and Lantus insulin 25 mg at bedtime. He is on Levaquin 500 mg every other day, apparently for his pneumonia. Levothyroxine 112 mcg daily, p.r.n. nitroglycerin, prednisone 40 mg daily for his pneumonia, and Brilinta 90 mg b.i.d. FAMILY HISTORY: He says that his father had coronary heart disease and 2 uncles also had coronary heart disease. SOCIAL HISTORY: He is . He is retired. He does not drink. He quit smoking 30 years ago. REVIEW OF SYSTEMS: Positive for cough, sputum production, pneumonia, wheezing, shortness of breath with exercise, shortness of breath lying down, waking up short of breath, extremity edema, diabetes, thyroid trouble, anemia, seasonal allergies, arthritis, wearing glasses, and loss of vision. Otherwise, his review of systems is negative for some 35 different complaints in 14 different system categories including central nervous system, general, respiratory, cardiovascular, endocrine, gastrointestinal, genitourinary, hematologic, lymphatic, allergic, immunologic, psychiatric, musculoskeletal, skin, eyes, ears, nose, mouth, and throat. Please see review of systems form for details and negatives in review of systems. PHYSICAL EXAMINATION: GENERAL: He presents as a well-developed and well-nourished white male, in no acute distress. VITAL SIGNS: Pulse was 69, blood pressure 126/58, O2 sat was 99, and respirations were 20 and regular. HEENT: His head was atraumatic. Eyes clear. NECK: Supple. There is no jugular venous distention or hepatojugular reflux. Thyroid is not enlarged. There is no adenopathy. SKIN: Warm and dry. Mucous membranes are moist. LUNGS: Clear to auscultation and percussion. HEART: Revealed normal first and second heart sounds. There is soft S4. There is no S3. There are no murmurs, rubs, thrills, heaves, or gallops. PMI is nondisplaced. ABDOMEN: Soft, flat, and nontender. No palpable masses. No organomegaly. EXTREMITIES: Reveal no cyanosis, clubbing, or edema. NEUROLOGIC: The patient mentated normally, talked normally, and moved all extremities normally. LABORATORY DATA: His EKG showed sinus tachycardia with a left bundle branch block. A subsequent EKG just showed a left bundle-branch block. His heart rate had come down. His BNP was greater than 35,000. Initial troponin was normal; however, the third troponin was 8.9. He never had chest pain. His chest x-ray shows pneumonia at the left base and bilateral pleural [place] [address] CONSULTATION Name: NOVATYREL CHEN Room: [address]#: [id number] Admission: 09/23/19 Attend Phys: Brenna Lira MD Discharge: 09/26/19 Date of : 41 Report #: [id number] pulmonary edema. IMPRESSION: 1. Flash pulmonary edema, likely due to a non-ST segment elevation myocardial infarction. 2. Peripheral artery disease. 3. Coronary artery disease. 4. Pneumonia at the left base. 5. Status post coronary artery bypass graft surgery. 6. Status post coronary artery stent. 7. Status post bilateral fem-pop bypass. 8. End-stage renal disease, on hemodialysis. 9. Ischemic cardiomyopathy. 10. Essential hypertension. 11. Insulin-dependent diabetes mellitus. 12. Hyperlipidemia. 13. Hypothyroidism. 14. Pleural effusions. 15. Chronic combined congestive heart failure. RECOMMENDATION: He has already been placed on heparin. He is getting aspirin and Brilinta. He is getting Coreg and he is getting nitroglycerin paste. I recommended that he have cardiac catheterization tomorrow and Dr. Gudino should do that. Thank you very much for asking me to see Tyrel Bhatt. If there are any questions, please feel free to contact me. <ELECTRONICALLY SIGNED> By: Clyde Ramirez MD, FACC 09/28/19 1223 1217 23F. Ryley King MD, FACC /nt
--- NOTE | 2019-09-28 13:57 | CARD ---
[address] [address] CARDIAC CATH REPORT Name: VIRGILIO BHATT Room: [address] IN .R.#: [id number] Admission: 09/23/19 Attend Phys: Brenna Lira MD Discharge: 09/26/19 Date of : 41 Report #: [id number] THIS REPORT FOR: //name// APPROVED REPORT Study performed: 09/25/2019 11:09:44 Patient Details The patient is a 74 year-old male Event Personnel Tim Gudino Chisel Trimmer, Romina Sibley Marketing Strategist, Juan Mathis BURR MACHINE OPERATOR Scrub, Natalia Thorpe RTR Monitor, Timothy Roman BURR MACHINE OPERATOR Monitor, Tim Gudino Senior Business Development Manager, Lisbeth Mendes extension service specialist in charge Performed Left heart catheterization selective coronary arteriography graft study and percutaneous coronary intervention to the graft to the circumflex Indication Non-STEMI Risk Factors Hypercholesterolemia, HypertensionRenal Failure Admission/Lab Medications/Medications given during procedure Angiomax bolus and infusion Procedure Narrative The patient was brought electively to the Cardiac Catheterization Laboratory and was prepped and draped in a sterile manner. The right antecubital was infiltrated with 2% Lidocaine subcutaneous anesthesia. A Slender Glidesheath sheath was inserted into the right bracial artery. Coronary angiography was performed using coronary diagnostic catheters. The right coronary system was accessed and visualized with a JR4 6fr catheter. The left coronary system was accessed and visualized with a DCR: Matthew 5fr catheter. Left ventricular/Aortic Valve gradient assessed via catheter pullback. The patient tolerated the procedure well and there were no complications associated with the procedure. Sheath left in place in the right brachial artery for 2 hours then pulled manual pressure. Grafts visualized witha TIG 4.0 [place] [address] CARDIAC CATH REPORT Name: VIRGILIO BHATT Room: [address]#: [id number] Admission: 09/23/19 Attend Phys: Brenna Lira MD Discharge: 09/26/19 Date of : 41 Report #: [id number] Intraoperative Conscious Sedation Sedation start time: 1151 Case end Time: 1343 Fentanyl 75 mcg Versed 1 mg Fluoro Time: 23.0 minutes Dose: DAP [id number] cGycm2 2710 mGy Contrast Type and Amount: Visipaque 160 ml [place] Artery Percent Stenosis #1 widely patent saphenous vein graft the distal right coronary with a widely patent proximal stent #2 patent saphenous vein graft to marginal branch of the circumflex and distal circumflex with 90% distal graft narrowing Diagnostic Cath Left Main 90% distal stenosis LAD 90% proximal stenosis with 100% mid vessel occlusion Circumflex 90% proximal stenosis with 100% mid vessel occlusion Right Coronary 80% tubular proximal narrowing with 100% mid vessel occlusion Hemodynamics The aortic pressure is 120/42 mmHg with a mean of 73 mmHg. The left ventricular pressure is 129/5 mmHg with a mean of mmHg. The left ventricular end diastolic pressure is 22 mmHg. PCI Technique Lesion Anticoagulation was achieved with Angiomax. Patient was preloaded with Angiomax Drip IV 28.7 ml per hr. Percutaneous coronary intervention was performed on the saphenous vein graft the circumflex. The lesion stenosis prior to intervention was 90% with LAST 3 flow. A 6F LCB 100CM Guide Catheter was used to engage the ostium. A IG: BMW 190cm Interventional Guidewire was used to cross the lesion. BALLOON DILATION A Balloon catheter Trek RX 2.25 X 12 was inserted and inflated up to 12.00atm for 12seconds. Additional Inflation: 16.00atm for 9seconds. STENT DEPLOYMENT A stent Blanchard RX Stent 2.5X12mm was inserted and inflated up to 14.00atm for 10seconds. Additional Inflation: 18.00[place] [address] CARDIAC CATH REPORT Name: VIRGILIO BHATT Room: [address]#: [id number] Admission: 09/23/19 Attend Phys: Brenna Lira MD Discharge: 09/26/19 Date of : 41 Report #: [id number] 11seconds. Final angiography reveals 0 % stenosis with LAST 3 flow. Conclusion #1 severe coronary disease characterized by the following: A 90% distal left main coronary artery stenosis B 90% proximal with 100% mid LAD occlusion C 90% proximal with 100% mid circumflex occlusion B 80% tubular proximal with 100% mid right coronary occlusion #2 patent saphenous vein graft the distal right artery with a widely patent proximal stent #3 patent saphenous vein graft to marginal branch of the circumflex and the distal circumflex with 90% distal graft narrowing just proximal to the distal anastomotic site #4 successful percutaneous coronary intervention with deployment of drug-eluting stent at site of 90% stenosis in the distal portion of the graft to the circumflex with 0% residual narrowing and LAST-3 flow to the distal vessel Recommendations Cardiac Risk Reduction Program Aggressive Medical Therapy Medications Administered Aspirin (any) Ticagrelor Diagnostic Cath Approved by: Date/Time: <ELECTRONICALLY SIGNED> By: Tim Gudino MD, [facility] 09/28/19 1356 1356 1356Tim Gudino MD, FACC /INF
== END 2019-09-26 18:14 | disposition home or self-care (01) | DRG 246 ==
LOC: M.ERS 20:31 → M.TBA-ER 23:04 → M.2W 23:04
PROVIDERS: Emergency Medicine; Family Medicine; Internal Medicine; Internal Medicine Nephrology; ADMIT Internal Medicine
DX: I21.4 Non-ST elevation (NSTEMI) myocardial infarction (principal); J96.01 Acute respiratory failure with hypoxia; N18.6 End stage renal disease; I50.43 Acute on chronic combined systolic (congestive) and diastolic (congestive) heart failure; J81.0 Acute pulmonary edema; J18.9 Pneumonia, unspecified organism; I13.2 Hypertensive heart and chronic kidney disease with heart failure and with stage 5 chronic kidney disease, or end stage renal disease; E11.22 Type 2 diabetes mellitus with diabetic chronic kidney disease; E11.51 Type 2 diabetes mellitus with diabetic peripheral angiopathy without gangrene; Z96.659 Presence of unspecified artificial knee joint; I25.5 Ischemic cardiomyopathy; E03.9 Hypothyroidism, unspecified; D53.9 Nutritional anemia, unspecified; I25.10 Atherosclerotic heart disease of native coronary artery without angina pectoris; Z95.1 Presence of aortocoronary bypass graft; Z87.891 Personal history of nicotine dependence; Z82.49 Family history of ischemic heart disease and other diseases of the circulatory system; Z79.4 Long term (current) use of insulin; Z95.5 Presence of coronary angioplasty implant and graft; Z79.899 Other long term (current) drug therapy

== ENCOUNTER → 2019-10-02 | Outpatient (CLI) | payer MEDICARE | LOC: M.RAD 11:15 | DX: J90 Pleural effusion, not elsewhere classified (principal); J18.9 Pneumonia, unspecified organism; R91.8 Other nonspecific abnormal finding of lung field; Z95.0 Presence of cardiac pacemaker ==

== ENCOUNTER 2019-10-05 13:14 | Inpatient (IN) | payer MEDICARE ==
[~2019-10-05] VITALS: Ht 177.8 cm; Wt 77.0 kg
[2019-10-05 13:21] VITALS: BP 118/54
[2019-10-05 13:49] LABS: ABSOLUTE EOSINOPHILS 0.1 thou/uL (0.0-0.7); ABSOLUTE LYMPHOCYTES 0.5 thou/uL (0.8-5.3); ABSOLUTE MONOCYTES 0.5 thou/uL (0.0-1.2); EOSINOPHILS 2.3 %; HEMOGLOBIN 10.4 gm/dL (14.0-18.0); LYMPHOCYTES 11.4 %; MCH 32.9 pg (26.0-34.0); MCHC 33.6 g/dL (28.0-37.0); MCV 97.8 fL (80.0-100.0); MONOCYTES 12.3 %; MPV 7.4 fl. (7.2-11.1); NUCLEATED RBCS 0 /100WBC; PLATELET COUNT* 150 thou/uL (150-400); RBC 3.17 mil/uL (4.50-6.00); RDW-CV 17.7 % (10.5-14.5)
[2019-10-05 14:01] LABS: ANION GAP 3 mmol/L (7-16); BUN 10 mg/dL (7-18); CALCIUM 8.5 mg/dL (8.5-10.1); CHLORIDE 100 mmol/L (98-107); CO2 37 mmol/L (21-32); CREATININE 3.2 mg/dL (0.6-1.3); GLUCOSE 181 mg/dL (70-99); POTASSIUM 3.4 mmol/L (3.5-5.1); SODIUM 140 mmol/L (136-145)
[2019-10-05 14:11] LABS: ALBUMIN 3.5 g/dL (3.4-5.0); ALKALINE PHOSPHATASE 94 U/L (46-116); LIPASE 64 U/L (73-393); MAGNESIUM 1.9 mg/dL (1.8-2.4); NT-PRO BRAIN NAT PEPTIDE > 35000 pg/mL (<300); SGOT 17 U/L (15-37); SGPT 21 U/L (30-65); TOTAL BILIRUBIN 1.1 mg/dL (<0.1-1.0)
--- NOTE | 2019-10-05 14:12 | EKG ---
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: Grain Operator: : 1945 Requested By: Molina Keith Order Number: [id number] MD: Clyde Ramirez Measurements Intervals [place] Rate: 72 P: 76 MO: 129 QRS: -6 QRSD: 197 T: 177 QT: 507 QTc: 556 Interpretive Statements sinus rhythm Probable left atrial enlargement Left bundle branch block Compared to ECG 09/26/2019 13:25:50 no change Electronically Signed On 10-05-2019 14:11:39 CORN HUSKER by Clyde Ramirez [email or web address] <ELECTRONICALLY SIGNED> By: Clyde Ramirez MD, [facility] 10/05/19 1411 1317 1317 Clyde Ramirez MD, FACC /EPI
[2019-10-05 17:13] VITALS: BP 136/61
[2019-10-05 17:50] VITALS: BP 151/62
--- NOTE | 2019-10-05 18:46 | NUR ---
PT ARRIVED FROM ER AROUND 1744. ASSESSMENT COMPLETED CHARTED. ABLE TO MAKE NEEDS KNOWN. UP AD JOHNNY. EATING SUPPER AT THIS TIME. FAMILY AT BEDSIDE. PAPERWORK SIGNED. NO C/O PAIN OR DISCOMFORT AT THIS TIME. WILL CONTINUE TO MONITOR.
[2019-10-06] VITALS: BP 92/36
[2019-10-06 03:43] VITALS: BP 89/37
[2019-10-06 05:27] LABS: PHOSPHORUS* 3.7 mg/dL (2.5-4.9); POTASSIUM 3.3 mmol/L (3.5-5.1)
--- NOTE | 2019-10-06 05:45 | NUR ---
ASSUMED CARE OF PATIENT AT APPROX 1930. ALERT AND ORIENTED X4. ASSESSMENT COMPLETED AND CHARTED. VSS ON 2 LITERS 02. NO COMPLAINTS OF FURTHER CHEST PAIN THIS SHIFT. PATIENT HAS PACEMAKER AND IS A PACED ON MONITOR. PATIENT IS UP AD JOHNNY IN THE ROOM. PATIENTS BLOOD PRESSURES WERE SOFT THIS SHIFT. SENT YOUCALL NOTIFICATION TO PHYSICIAN, NO NEW ORDERS RECIEVED. HOURLY ROUNDS COMPLETED. WILL CONTINUE WITH PLAN OF CARE.
[2019-10-06 05:54] LABS: CREATININE 4.6 mg/dL (0.6-1.3)
[2019-10-06 08:00] VITALS: BP 119/60
--- NOTE | 2019-10-06 10:19 | NUR ---
Nutrition: Consult received for poor intake. H/o ESRD on HD, IDDM, CAD, CHF. Pt dialyzes. Labs: creatinine 4.6, albumin 3, BG 102. Pt eats renal diet. RD did order Nepro vanilla for added nutrition intake. Wt: 169#. Mild risk.
[2019-10-06 11:50] VITALS: BP 118/49
--- NOTE | 2019-10-06 12:44 | NUR ---
CM ASSESSMENT: VISITED WITH PT IN ROOM. PT LEAVING HIS ROOM FOR DIALYSIS SOON. PT LIVES AT HOME ALONE. INDEPENDENT WITH ADLS,DRIVES. NO DME OR HH NEEDS HE GOES TO DIALYSIS AT [facility] IN [place] ON AND WED. CM WILL BE AVAILABLE IF NEEDS ARRIVE AT DISCHARGE
--- NOTE | 2019-10-06 13:55 | 2DMMODE ---
[facility] [address] [place] [address] 2 D/M-MODE ECHOCARDIOGRAM Name: VIRGILIO BHATT Room: [address] IN [facility]#: [id number] Admission: 10/05/19 Attend Phys: Naun mccord Sa Discharge: Date of : 41 Date of Service: 10/06/19 1355 Report #: [id number] THIS REPORT FOR: //name// APPROVED REPORT Study performed: 10/06/2019 11:37:11 EXAM: Limited 2D Echocardiogram Patient Location: In-Patient Room #: [facility] Status: routine BSA: 1.92 HR: 63 bpm BP: 119/60 mmHg Rhythm: NSR Other Information Study Quality: Excellent Indications Chest Pain Left Ventricle Left ventricle is mildly dilated. There is global hypokinesis of the left ventricle. There is normal left ventricular wall thickness. Left ventricular systolic function is severely decreased. LVEF is 25-30%. Right Ventricle The right ventricle is normal size. The right ventricular systolic function is normal. Pacemaker lead is present in the right ventricle. Atria Left atrium is mildly dilated. Aortic Valve Mild aortic valve sclerosis. Mitral Valve The mitral valve is normal in structure. Mild mitral annular calcification. Tricuspid Valve The tricuspid valve is normal in structure. Pulmonic Valve [address] [address] 2 D/M-MODE ECHOCARDIOGRAM Name: NOVAVIRGILIO Jennifer Room: [address] IN M.R.#: [id number] Admission: 10/05/19 Attend Phys: Naun mccord Sa Discharge: Date of : 41 Date of Service: 10/06/19 1355 Report #: [id number] The pulmonary valve is normal in structure. Great Vessels The aortic root is normal in size. IVC is normal in size and collapses >50% with inspiration. Pericardium There is no pericardial effusion. <Conclusion> Left ventricle is mildly dilated. LVEF is 25-30%. Left atrium is mildly dilated. Mild aortic valve sclerosis. There is no pericardial effusion. <ELECTRONICALLY SIGNED> By: Clyde Ramirez MD, FAC 10/06/19 1355 1355 135 Clyde Ramirez MD, FACC /INF
[2019-10-06 17:45] VITALS: BP 102/42
--- NOTE | 2019-10-06 19:00 | NUR ---
ASSUMED PT CARE AT 0730. ASSESSMENT COMPLETED CHARTED. ABLE TO MAKE NEEDS KNOWN. UP AD JOHNNY. NO C/O PAIN OR DISCOMFORT. STATES BREATHING IS BETTER TODAY AND EVEN TOOK OFF O2. RESTING IN BED AT THIS TIME. WAS AT DIALYSIS FOR ABOUT 3 HOURS TODAY AND TOOK OFF 1.9 L. FISTULA BRUIT AND THRILL PRESENT. WILL CONTINUE TO MONITOR.
[2019-10-06 20:00] VITALS: BP 117/49
[2019-10-07] VITALS: BP 93/42
--- NOTE | 2019-10-07 05:18 | NUR ---
PT HAS MAINTAINED O2 SATS ON RA THROUGH OUT SHIFT. DID WELL WITH WALKING WITHOUT SOA. TAPE FROM HIS PRESSURE DRESSING FROM DIALYSIS WAS COMING LOOSE SO REINFORCED. NO C/O PAIN OR DISCOMFORT, NO CONCERNS STATED BY PT, CURRENTLY ASLEEP WITH CALL LIGHT WITHIN REACH.
[2019-10-07 08:00] VITALS: BP 117/51
[2019-10-07] MEDS ORDERED: IMDUR 30 MG TAB30 M1 PO (11:50)
[2019-10-07 13:50] VITALS: BP 114/49
--- NOTE | 2019-10-07 14:45 | NUR ---
RECEIVED REPORT FROM THEO HERNANDEZ. ASSUMED CARE OF PT AROUND 0730. PT A&O X4. VSS. COMMUNITY HEALTH CONSULTANT IN PLACE TRACING APACED. AM ASSESSMENT AND VITALS COMPLETED CHARTED. PT WENT UP TO DIALYSIS THIS AM AROUND 8AM AND RETURNED AROUND 1PM - ABOUT 2 LITERS WERE TAKEN OFF. PT MAINTAINING O2 SATS >90% ON RA. NO COMPLAINTS, FEELS READY TO GO HOME. DISCHARGE ORDERS RECEIVED. DISCHARGE COMPLETED DOCUMENTED. DISCHARGE SUMMARY AND CARE NOTES GONE OVER WITH PT, PT COMMUNICATES UNDERSTANDING. PT AWARE OF NEW SCRIPT SENT TO HIS PHARMACY. IV AND COMMUNITY HEALTH CONSULTANT REMOVED. ALL BELONGINGS GATHERED AND LEAVING WITH PT. PT WAITING IN ROOM FOR HIS RIDE. LOW FALL RISK PRECAUTIONS IN PLACE. CALL LIGHT IS WITHIN REACH. WCTM TILL PT LEAVES UNIT.
--- NOTE | 2019-10-10 11:03 | CON ---
[address] [address] CONSULTATION Name: VIRGILIO BHATT Room: [address] M.R.#: [id number] Admission: 10/05/19 Attend Phys: Naun Torres Discharge: 10/07/19 Date of : 41 Report #: [id number] THIS REPORT FOR: //name// CC: Dileep House DATE OF SERVICE: 10/06/2019 NEPHROLOGY CONSULTATION CONSULTING PHYSICIAN: Dr. Naun House. REASON FOR NEPHROLOGY CONSULTATION: End-stage renal disease, for maintenance of hemodialysis needs. REASON FOR ADMISSION: Shortness of breath. HISTORY OF PRESENT ILLNESS: This is a 74-year-old male with past medical history of end-stage renal disease on hemodialysis every Wednesday, and Wednesday, had his complete dialysis yesterday, coronary artery disease status post stent placement because of a non-STEMI that was on 09/23/2019, came in with shortness of breath. The patient presented with non-STEMI earlier this month and there was found to be flash pulmonary edema. He did have a stent placed at that time. He is not having any chest pain at this time. He says that he was below his dry weight yesterday and 1.1 liters were removed off of him. He does say that he cramps during dialysis. His chest x-ray still shows evidence of pulmonary vascular congestion. He is on 2 liters of oxygen via nasal cannula. His ejection fraction is 35-40% with evidence of ischemic cardiomyopathy. This is from 09/23/2019. ALLERGIES: No known allergies. REVIEW OF SYSTEMS: As mentioned in the history of present illness, otherwise 10-point review of systems are negative. HOME MEDICATIONS: Include folic acid, atorvastatin, carvedilol, glimepiride, hydralazine, insulin glargine, levothyroxine, cholecalciferol, amlodipine, furosemide, aspirin, ____, nitroglycerin. PAST MEDICAL AND SURGICAL HISTORY: Includes end-stage renal disease, on hemodialysis every Wednesday, and Wednesday; pacemaker; cardiac stent placement; diabetes type 2; quadruple bypass in 1997; aortic bypass; knee replacement right and femoral bypass. FAMILY HISTORY: Heart [place] [address] CONSULTATION Name: BECKYGROVERVIRGILIO L Room: [address]#: [id number] Admission: 10/05/19 Attend Phys: Naun mccord [place] Discharge: 10/07/19 Date of : 41 Report #: [id number] SOCIAL HISTORY: He does not smoke, drink alcohol or use illicit drugs. PHYSICAL EXAMINATION: VITAL SIGNS: Blood pressure is 119/60, respiratory rate is 18, pulse rate is 77, temperature 36.7 and his pulse ox is 96%. He is on 2 liters of oxygen via nasal cannula. GENERAL: He is awake, alert, oriented x 3. HEAD, EYES, EARS, NOSE AND THROAT: Atraumatic, normocephalic. NECK: No JVD. CHEST: Bilaterally diminished breath sounds posteriorly. Basilar crackles. CARDIOVASCULAR: S1, S2 normal. No murmurs. ABDOMEN: Soft, nondistended, nontender. Bowel sounds present. EXTREMITIES: Lower extremities, there is no lower extremity edema. NEUROLOGICAL FUNCTION: Gross neurological function is intact. PSYCHOLOGIC: Mood and affect seems to be normal. LABORATORY DATA: Hemoglobin is 10.4. His potassium is 3.3. His white count is 4.0. Sodium is 142, chloride is 103. Other labs are reviewed. IMAGING: Chest x-ray was reviewed. ASSESSMENT: 1. End-stage renal disease, on hemodialysis every Wednesday, and Wednesday. 2. The patient presented with shortness of breath. Chest x-ray shows pulmonary vascular congestion. 3. History of chronic systolic congestive heart failure, ejection fraction 35-40%, with acute exacerbation at this time. 4. Peripheral vascular disease. 5. Status post permanent pacemaker implant. 6. Coronary artery disease status post recent myocardial infarction and stent placement. 7. History of diabetes type 2. PLAN: 1. His potassium was 3.3, which was replaced today. We will run him for 2 hours today on a dialysis machine, but we will not dialyze. We will just do UF on him. I spoke to his dialysis facility where he goes for dialysis pretty regularly, gets dialyzed for 4 hours, and they do UF profiling on him that is to do ultrafiltration initially for the first hour and then begin dialysis, which helps with more fluid removal. I told them that they should adjust his dry weight and lower rate by 0.5 kilograms and they are going to try, the patient does have history of cramping, which unfortunately limits fluid removal. 2. Lowering temperature of dialysate that might help. The patient will be dialyzed as per his regular treatment tomorrow. [address] [address] CONSULTATION Name: VIRGILIO BHATT Room: [address] IN M.R.#: [id number] Admission: 10/05/19 Attend Phys: Naun baires [place] Discharge: 10/07/19 Date of : 41 Report #: [id number] Thank you for this consultation. Discussed with the patient and Cardiology. We will continue to follow for dialysis needs. <ELECTRONICALLY SIGNED> By: Radha Byrnes MD 10/10/19 1103 1002 1300Radha Byrnes MD /nt
== END 2019-10-07 15:20 | disposition home or self-care (01) | DRG 291 ==
LOC: M.ERS 13:14 → M.2W 15:01 → M.TBA-ER 15:01 → M.2W 17:32
PROVIDERS: Emergency Medicine Emergency Medical Services; ADMIT Family Medicine
PROC: 5A1D70Z Performance of Urinary Filtration, Intermittent, Less than 6 Hours Per Day (ICD-10-PCS; principal; 2019-10-06)
PROC: 5A1D70Z Performance of Urinary Filtration, Intermittent, Less than 6 Hours Per Day (ICD-10-PCS; 2019-10-07)
DX: I13.2 Hypertensive heart and chronic kidney disease with heart failure and with stage 5 chronic kidney disease, or end stage renal disease (principal); N18.6 End stage renal disease; I50.43 Acute on chronic combined systolic (congestive) and diastolic (congestive) heart failure; Z99.2 Dependence on renal dialysis; Z96.651 Presence of right artificial knee joint; E11.22 Type 2 diabetes mellitus with diabetic chronic kidney disease; E11.51 Type 2 diabetes mellitus with diabetic peripheral angiopathy without gangrene; I25.10 Atherosclerotic heart disease of native coronary artery without angina pectoris; D53.9 Nutritional anemia, unspecified; I25.5 Ischemic cardiomyopathy; E87.6 Hypokalemia; E78.5 Hyperlipidemia, unspecified; Z87.891 Personal history of nicotine dependence; Z82.49 Family history of ischemic heart disease and other diseases of the circulatory system; I25.2 Old myocardial infarction; Z95.5 Presence of coronary angioplasty implant and graft; Z95.1 Presence of aortocoronary bypass graft; Z79.82 Long term (current) use of aspirin; Z79.899 Other long term (current) drug therapy

== ENCOUNTER → 2020-05-07 | Outpatient (CLI) | payer MEDICARE ==
[~2020-05-07] MED LIST changes: +IMDUR 30 MG TAB30 M1 PO
--- NOTE | 2020-05-07 15:18 | 2DMMODE ---
[place] [address] 2 D/M-MODE ECHOCARDIOGRAM Name: VIRGILIO BHATT [facility]#: [id number] Admission: 05/07/20 Attend Phys: Jennifer Wu, Discharge: Date of : 41 Date of Service: 05/07/20 1517 Report #: [id number] THIS REPORT FOR: cc: Dileep Alejo Bradley Dean DO Liston, Michael J. MD [facility] ~ APPROVED REPORT Study performed: 05/07/2020 12:48:51 EXAM: Comprehensive 2D, Doppler, and color-flow Echocardiogram Patient Location: Out-Patient BSA: 1.87 HR: 88 bpm BP: 123/61 mmHg Other Information Study Quality: Good Indications Cardiomyopathy Pleural Effusion 2D Dimensions IVSd: 13.26 (7-11mm) LVOT Diam: 20.55 (18-24mm) LVDd: 55.00 mm PWd: 10.40 (7-11mm) Ascending Ao: 25.83 (22-36mm) LVDs: 46.11 (25-40mm) Aortic Root: 24.75 mm Volumes Left Atrial Volume (Systole) LA ESV Index: 27.50 mL/m2 Aortic Valve AoV Peak Mustapha.: 1.33 m/s AO Peak Gr.: 7.06 mmHg LVOT Max P.95 mmHg AO Mean Gr.: 4.27 mmHg LVOT Mean P.05 mmHg LVOT Max V: 0.70 m/s AO V2 VTI: 28.42 cm LVOT Mean V: 0.48 m/s GARIMA (VTI): 2.01 cm2 LVOT V1 VTI: 17.21 [place] [address] 2 D/M-MODE ECHOCARDIOGRAM Name: VIRGILIO BHATT [id number] Admission: 05/07/20 Attend Phys: Jennifer Wu, Discharge: Date of : 41 Date of Service: 05/07/20 1517 Report #: [id number] E/A Ratio: 1.96 MV Decel. Time: 151.25 ms MV E Max Mustapha.: 1.03 m/s MV PHT: 43.86 ms MVA (PHT): 5.02 cm2 TDI E/Lateral E': 12.88 E/Medial E': 20.60 Medial E' Mustapha.: 0.05 m/s Lateral E' Mustapha.: 0.08 m/s Pulmonary Valve PV Peak Mustapha.: 0.98 m/s PV Peak Gr.: 3.86 mmHg Tricuspid Valve RAP Estimate: 5.00 mmHg TR Peak Gr.: 35.83 mmHg RVSP: 40.83 mmHg PA Pressure: 40.83 mmHg Left Ventricle Left ventricle is moderately dilated. There is severe global hypokinesis with akinesis of the septum and apex. There is normal left ventricular wall thickness. Left ventricular systolic function is severely decreased. LVEF is 20-25%. Transmitral Doppler flow pattern suggests restrictive physiology. Right Ventricle The right ventricle is normal size. The right ventricular systolic function is normal. Pacemaker lead is present in the right ventricle. Atria Left atrium is mildly dilated. Pacemaker lead is present in the right atrium. Aortic Valve Aortic valve is mildly calcified. Mild aortic regurgitation. There is no aortic valvular stenosis. Mitral Valve The mitral valve is normal in structure. Mild mitral regurgitation. No evidence of mitral valve stenosis. Tricuspid Valve The tricuspid valve is normal in structure. Mild to moderate [place] [address] 2 D/M-MODE ECHOCARDIOGRAM Name: VIRGILIO BHATT Jennifer Room: [facility]#: [id number] Admission: 05/07/20 Attend Phys: Jennifer Wu, Discharge: Date of : 41 Date of Service: 05/07/20 1517 Report #: [id number] Pulmonic Valve The pulmonary valve is normal in structure. Mild pulmonic regurgitation. Great Vessels The aortic root is normal in size. IVC is normal in size and collapses >50% with inspiration. Pericardium There is no pericardial effusion. <Conclusion> Left ventricle is moderately dilated. There is normal left ventricular wall thickness. Left ventricular systolic function is severely decreased. LVEF is 20-25%. Transmitral Doppler flow pattern suggests restrictive physiology. Pacemaker lead is present in the right ventricle. Left atrium is mildly dilated. Aortic valve is mildly calcified. Mild aortic regurgitation. Mild mitral regurgitation. Mild to moderate tricuspid regurgitation. Mild pulmonic regurgitation. IVC is normal in size and collapses >50% with inspiration. <ELECTRONICALLY SIGNED> By: Orville Austin MD, FACC 05/07/20 1517 16 16 Orville Austin MD, FACC /INF
== END ==
LOC: M.CRD 12:54
PROVIDERS: ATTEND Nurse Practitioner
DX: J90 Pleural effusion, not elsewhere classified (principal); I08.8 Other rheumatic multiple valve diseases

== ENCOUNTER 2020-06-04 14:55 | Inpatient (IN) | payer MEDICARE ==
[~2020-06-04] VITALS: Ht 177.8 cm; Wt 68.0 kg
[2020-06-04 15:02] VITALS: BP 124/62
[2020-06-04 15:24] LABS: ABSOLUTE BASOPHILS 0.1 thou/uL (0.0-0.2); ABSOLUTE LYMPHOCYTES 0.6 thou/uL (0.8-5.3); ABSOLUTE MONOCYTES 0.4 thou/uL (0.0-1.2); ABSOLUTE NEUTROPHILS 4.8 thou/uL (1.6-8.1); BASOPHILS 1.1 %; EOSINOPHILS 0.6 %; HEMATOCRIT 36.9 % (42.0-52.0); HEMOGLOBIN 12.4 gm/dL (14.0-18.0); LYMPHOCYTES 10.5 %; MCH 32.3 pg (26.0-34.0); MCHC 33.7 g/dL (28.0-37.0); MCV 95.9 fL (80.0-100.0); MONOCYTES 7.2 %; MPV 7.2 fl. (7.2-11.1); NUCLEATED RBCS 0 /100WBC; PLATELET COUNT* 159 thou/uL (150-400); POLYS 80.6 %; RBC 3.85 mil/uL (4.50-6.00); RDW-CV 16.7 % (10.5-14.5); WBC 5.9 thou/uL (4.0-11.0)
[2020-06-04 15:32] LABS: ANION GAP 9 mmol/L (7-16); BUN 11 mg/dL (7-18); CALCIUM 9.2 mg/dL (8.5-10.1); CHLORIDE 98 mmol/L (98-107); CO2 31 mmol/L (21-32); GLUCOSE 112 mg/dL (70-99); POTASSIUM 3.4 mmol/L (3.5-5.1); SODIUM 138 mmol/L (136-145)
[2020-06-04 15:33] LABS: APTT 26.8 Seconds (25.0-31.3); INR 1.1; PROTIME 11.1 Seconds (9.20-11.50)
[2020-06-04 15:43] LABS: ALBUMIN 4.2 g/dL (3.4-5.0); ALKALINE PHOSPHATASE 99 U/L (46-116); NT-PRO BRAIN NAT PEPTIDE > 35000 pg/mL (<300); SGOT 21 U/L (15-37); SGPT 24 U/L (30-65); TOTAL BILIRUBIN 1.4 mg/dL (<0.1-1.0); TOTAL PROTEIN 7.9 g/dL (6.4-8.2)
[2020-06-04 17:20] LABS: CREATININE 3.1 mg/dL (0.6-1.3); MAGNESIUM 2.1 mg/dL (1.8-2.4); POTASSIUM 3.4 mmol/L (3.5-5.1)
[2020-06-04 17:35] LABS: CHOLESTEROL 117 mg/dL (<200); HDL CHOLESTEROL 42 mg/dL (>40); LDL CHOLESTEROL 60 mg/dL (<100); SERUM ASSESSMENT Clear; TC:HDL 2.8 Ratio (Not establshd); TRIGLYCERIDE 76 mg/dL (<150); VLDL 15 mg/dL (<40)
[2020-06-04 19:38] LABS: URINE BILIRUBIN NEGATIVE (Negative); URINE BLOOD TRACE (Negative); URINE CLARITY CLEAR; URINE COLOR YELLOW; URINE GLUCOSE-RANDOM TRACE (Negative); URINE KETONES TRACE (Negative); URINE LEUKOCYTES-REFLEX NEGATIVE (Negative); URINE NITRITE-REFLEX NEGATIVE (Negative); URINE PROTEIN 2+ (Negative); URINE UROBILINOGEN 0.2 E.U./dl (0.2-1.0)
[2020-06-04 19:46] LABS: BACTERIA-REFLEX 1-9 Few /HPF (None Seen); SQUAMOUS 0-3 Few /LPF (0-3); URINE RBC 0-2 Rare /HPF (0-2); URINE WBC-REFLEX 0-5 Rare /HPF (0-5)
[2020-06-04 19:47] LABS: CRYSTALS None Seen /LPF (None Seen); HYALINE CASTS 0-3 Few /LPF (None Seen)
[2020-06-04 20:00] VITALS: BP 120/57
[2020-06-05] VITALS (7 sets, daily range): BP systolic 90–137; BP diastolic 42–70
[2020-06-05 05:04] LABS: HEMATOCRIT 32.5 % (42.0-52.0); HEMOGLOBIN 11.1 gm/dL (14.0-18.0); MCH 32.4 pg (26.0-34.0); MCV 95.5 fL (80.0-100.0); MPV 7.2 fl. (7.2-11.1); RBC 3.41 mil/uL (4.50-6.00); RDW-CV 16.9 % (10.5-14.5); WBC 3.9 thou/uL (4.0-11.0)
[2020-06-05 05:39] LABS: ALBUMIN 3.3 g/dL (3.4-5.0); CALCIUM 8.9 mg/dL (8.5-10.1); POTASSIUM 3.4 mmol/L (3.5-5.1); TOTAL BILIRUBIN 0.8 mg/dL (<0.1-1.0); TOTAL PROTEIN 6.4 g/dL (6.4-8.2)
[2020-06-05 05:43] LABS: CREATININE 4.1 mg/dL (0.6-1.3)
--- NOTE | 2020-06-05 10:07 | EKG ---
[place] [address] ELECTROCARDIOGRAM REPORT Name: VIRGILIO BHATT Room: [address] ADM IN .R.#: [id number] Admission: 06/04/20 Attend Phys: Lucas Breen Discharge: Date of : 41 Date of Service: 06/04/20 1514 Report #: [id number] THIS REPORT FOR: //name// [facility] ED Test Date: 2020-06-04 Test Time: 15:14:19 Pat Name: VIRGILIO BHATT Department: Room: [facility] Gender: M Chief Growth Officer: HELENA : 1945 Requested By: Molina Keith Order Number: [id number] MD: Clyde Ramirez Measurements Intervals [place] Rate: 89 P: 83 NM: 197 QRS: -30 QRSD: 184 T: 150 QT: 453 QTc: 552 Interpretive Statements Sinus rhythm Left bundle branch block Compared to ECG 10/05/2019 13:17:15 No significant changes Electronically Signed On 06-05-2020 10:07:01 CDT by Clyde Ramirez [email or web address] <ELECTRONICALLY SIGNED> By: Clyde Ramirez MD, FACC 06/05/20 1007 1514 1514 Clyde Ramirez MD, FAC /EPI
--- NOTE | 2020-06-05 14:10 | 2DMMODE ---
[place] [address] 2 D/M-MODE ECHOCARDIOGRAM Name: VIRGILIO BHATT Jennifer Room: [facility]- ADM IN [facility]#: [id number] Admission: 06/04/20 Attend Phys: Lucas Breen Discharge: Date of : 41 Date of Service: 06/05/20 1410 Report #: [id number] THIS REPORT FOR: cc: Dileep Alejo Bradley Dean DO Blick, David R. MD [facility] ~ APPROVED REPORT Study performed: 06/05/2020 10:52:39 EXAM: Limited 2D Echocardiogram Patient Location: In-Patient Room #: [facility] Status: routine BSA: 1.85 HR: 69 bpm BP: 137/70 mmHg Rhythm: NSR Other Information Study Quality: Good Indications Dyspnea Elevated Troponin Left Ventricle Left ventricle is moderately dilated. akinesis noted of the mid and distal anteroseptal wall and apex Mild concentric left ventricular hypertrophy. Left ventricular systolic function is severely decreased. LVEF is 20%. Right Ventricle The right ventricle is normal size. The right ventricular systolic function is normal. Pacemaker lead is present in the right ventricle. Atria Left atrium is dilated. The right atrium size is normal. Aortic Valve Mild aortic valve sclerosis. Mitral Valve The mitral valve [place] [address] 2 D/M-MODE ECHOCARDIOGRAM Name: VIRGILIO BHATT Room: [address] [place] M.R.#: [id number] Admission: 06/04/20 Attend Phys: Lucas Breen Discharge: Date of : 41 Date of Service: 06/05/20 141 Report #: [id number] Tricuspid Valve The tricuspid valve is normal in structure. Pulmonic Valve The pulmonary valve is normal in structure. Great Vessels The aortic root is normal in size. IVC is normal in size and collapses >50% with inspiration. Pericardium There is no pericardial effusion. <Conclusion> Left ventricle is moderately dilated. Mild concentric left ventricular hypertrophy. akinesis noted of the mid and distal anteroseptal wall and apex LVEF is 20%. Left atrium is dilated. Mild aortic valve sclerosis. <ELECTRONICALLY SIGNED> By: Clyde Ramirez MD, FACC 06/05/201409 09 09 Clyde Ramirez MD, FACC /INF
[2020-06-06] VITALS (9 sets, daily range): BP systolic 84–127; BP diastolic 41–66
[2020-06-06 04:06] LABS: GLYCOHEMOGLOBIN (HGB A1C) 5.9 % (4.8-5.6)
[2020-06-06 05:16] LABS: ABSOLUTE EOSINOPHILS 0.1 thou/uL (0.0-0.7); ABSOLUTE LYMPHOCYTES 0.7 thou/uL (0.8-5.3); ABSOLUTE MONOCYTES 0.3 thou/uL (0.0-1.2); ABSOLUTE NEUTROPHILS 2.4 thou/uL (1.6-8.1); BASOPHILS 1.2 %; EOSINOPHILS 2.5 %; HEMATOCRIT 31.9 % (42.0-52.0); HEMOGLOBIN 10.8 gm/dL (14.0-18.0); LYMPHOCYTES 19.1 %; MCH 32.5 pg (26.0-34.0); MCHC 33.8 g/dL (28.0-37.0); MCV 95.9 fL (80.0-100.0); MONOCYTES 9.4 %; MPV 7.3 fl. (7.2-11.1); NUCLEATED RBCS 0 /100WBC; PLATELET COUNT* 123 thou/uL (150-400); POLYS 67.8 %; RBC 3.32 mil/uL (4.50-6.00); RDW-CV 16.5 % (10.5-14.5); WBC 3.5 thou/uL (4.0-11.0)
[2020-06-06 05:25] LABS: CALCIUM 8.6 mg/dL (8.5-10.1); POTASSIUM 3.4 mmol/L (3.5-5.1)
[2020-06-06 05:29] LABS: CREATININE 5.3 mg/dL (0.6-1.3)
[2020-06-07 04:00] VITALS: BP 114/74
[2020-06-07 08:07] VITALS: BP 123/62
[2020-06-07] MEDS ORDERED: METOPROLOL SUCC25 M1 PO (09:32)
[2020-06-07] MEDS ORDERED: RANEXA500 MG PO (09:32)
[2020-06-07 10:29] VITALS: BP 96/49
[2020-06-07] MEDS ORDERED: LEVOFLOXACIN500 MG PO (11:13)
[2020-06-07] MEDS ORDERED: CEFPODOXIME PR200 M1 PO (11:27)
[2020-06-07] MEDS ORDERED: CEFDINIR300 MG PO (12:36)
[2020-06-07 13:23] VITALS: BP 123/62
== END 2020-06-07 14:05 | disposition home or self-care (01) | DRG 280 ==
LOC: M.ERS 14:55 → M.2W 16:25 → M.TBA-ER 16:25 → M.2W 20:05
PROVIDERS: Emergency Medicine Emergency Medical Services; Internal Medicine Nephrology; ADMIT Internal Medicine; ATTEND Internal Medicine
PROC: 5A1D70Z Performance of Urinary Filtration, Intermittent, Less than 6 Hours Per Day (ICD-10-PCS; principal; 2020-06-06)
DX: I24.9 Acute ischemic heart disease, unspecified (principal); I50.43 Acute on chronic combined systolic (congestive) and diastolic (congestive) heart failure; I21.A1 Myocardial infarction type 2; N18.6 End stage renal disease; J15.9 Unspecified bacterial pneumonia; I13.2 Hypertensive heart and chronic kidney disease with heart failure and with stage 5 chronic kidney disease, or end stage renal disease; I25.10 Atherosclerotic heart disease of native coronary artery without angina pectoris; I44.7 Left bundle-branch block, unspecified; I25.5 Ischemic cardiomyopathy; E78.5 Hyperlipidemia, unspecified; E11.51 Type 2 diabetes mellitus with diabetic peripheral angiopathy without gangrene; E03.9 Hypothyroidism, unspecified; E87.6 Hypokalemia; E11.22 Type 2 diabetes mellitus with diabetic chronic kidney disease; Z96.651 Presence of right artificial knee joint; Z20.828 Contact with and (suspected) exposure to other viral communicable diseases; Z95.5 Presence of coronary angioplasty implant and graft; Z95.1 Presence of aortocoronary bypass graft; Z95.0 Presence of cardiac pacemaker; Z79.4 Long term (current) use of insulin; Z79.82 Long term (current) use of aspirin; Z79.899 Other long term (current) drug therapy; Z87.891 Personal history of nicotine dependence

== ENCOUNTER → 2020-06-27 | Outpatient (CLI) | payer MEDICARE ==
[~2020-06-27] MED LIST changes: +CEFDINIR300 MG PO; +CEFPODOXIME PR200 M1 PO; +LEVOFLOXACIN500 MG PO; +METOPROLOL SUCC25 M1 PO; +RANEXA500 MG PO
== END ==
LOC: M.ULTRA 12:35
PROVIDERS: ATTEND Internal Medicine Critical Care Medicine
DX: M79.89 Other specified soft tissue disorders (principal)

== ENCOUNTER 2020-07-22 07:47 | Observation (INO) | payer MEDICARE ==
[2020-07-22] VITALS (11 sets, daily range): BP systolic 106–150; BP diastolic 61–94
[~2020-07-22] VITALS: Ht 177.8 cm; Wt 62.1 kg
[2020-07-22] MEDS ORDERED: RENA-VITE RX T1 EACH (08:28)
[2020-07-22 08:54] LABS: HEMATOCRIT 30.5 % (42.0-52.0); HEMOGLOBIN 9.9 gm/dL (14.0-18.0); MCH 31.3 pg (26.0-34.0); MCHC 32.5 g/dL (28.0-37.0); MCV 96.5 fL (80.0-100.0); MPV 7.2 fl. (7.2-11.1); RBC 3.17 mil/uL (4.50-6.00); RDW-CV 17.7 % (10.5-14.5); WBC 6.1 thou/uL (4.0-11.0)
[2020-07-22 08:59] LABS: ANION GAP 6 mmol/L (7-16); BUN 40 mg/dL (7-18); CALCIUM 8.8 mg/dL (8.5-10.1); CHLORIDE 97 mmol/L (98-107); CO2 33 mmol/L (21-32); CREATININE 5.7 mg/dL (0.6-1.3); GLUCOSE 138 mg/dL (70-99); POTASSIUM 3.7 mmol/L (3.5-5.1); SODIUM 136 mmol/L (136-145)
[2020-07-22 09:04] LABS: ALBUMIN 2.9 g/dL (3.4-5.0); ALKALINE PHOSPHATASE 84 U/L (46-116); CHOLESTEROL 139 mg/dL (<200); HDL CHOLESTEROL 40 mg/dL (>40); LDL CHOLESTEROL 72 mg/dL (<100); SGOT 27 U/L (15-37); SGPT 30 U/L (30-65); TC:HDL 3.5 Ratio (Not establshd); TOTAL BILIRUBIN 0.7 mg/dL (<0.1-1.0); TOTAL PROTEIN 7.2 g/dL (6.4-8.2); TRIGLYCERIDE 135 mg/dL (<150); VLDL 27 mg/dL (<40)
[2020-07-22 09:05] LABS: SERUM ASSESSMENT Clear
[2020-07-22 09:27] LABS: APTT 24.6 Seconds (25.0-31.3); INR 1.1; PROTIME 10.7 Seconds (9.20-11.50)
--- NOTE | 2020-07-22 16:22 | CARD ---
[address] [address] CARDIAC CATH REPORT Name: VIRGILIO BHATT Jennifer Room: [address] Berny Hopper#: [id number] Admission: 07/22/20 Attend Phys: Tim Gudino MD, Discharge: Date of : 41 Report #: [id number] THIS REPORT FOR: //name// cc: Dileep Alejo Bradley Dean DO ~ APPROVED REPORT Study performed: 07/22/2020 11:12:12 Patient Details Patient Status: Out-Patient Room #: The patient is a 75 year-old male Event Personnel Tim Gudino Crocheter, Sintia Nelson RN [employer] Sales Consultant, Juan Mathis VP COMPLIANCE Monitor, Timothy Roman VP COMPLIANCE Scrub, Ronny Holt RTR Monitor Procedures Performed Left Heart Cath Coronaries, Bypass Grafts LHCCORCABG , PERLA Place w/wo Plasty Addl BR OM 1 DESADDL, PERLA Revasc Graft Single OM SVGREVSING , Hemostasis with Hemoband Indication Unstable angina Risk Factors Hypercholesterolemia, HypertensionRenal Failure Admission/Lab Medications/Medications given during procedure Lidocaine Subcut 3 ml, Nitroglycerin IA 200 mcg, Verapamil IA 2 mg, Angiomax IV 10 ml, Angiomax IV 3.1 ml per hr, Angiomax IV 3 ml, Ticagrelor PO 90 mg, Angiomax IV 2 ml Procedure Narrative The patient was brought electively to the Cardiac Catheterization Laboratory and was prepped and draped in a sterile manner. The right antecubital area was infiltrated with 2% Lidocaine subcutaneous anesthesia. A 6F Slender Hilliard sheath was inserted into the right brachial artery. Coronary angiography was performed using coronary diagnostic catheters. The right coronary system was accessed and visualized with a LCB 6Fr catheter. The left coronary system was accessed and visualized with a JR4 6Fr catheter. The left ventricle was accessed and visualized with a JR4 6[place] [address] CARDIAC CATH REPORT Name: VIRGILIO BHATT Room: [address] M.R.#: [id number] Admission: 07/22/20 Attend Phys: Tim Gudino MD, Discharge: Date of : 41 Report #: [id number] ventricular/Aortic Valve gradient assessed via catheter pullback. The patient tolerated the procedure well and there were no complications associated with the procedure. There was no hematoma. Intraoperative Conscious Sedation Sedation start time: 11:23 Case end Time: 12:47 No sedation given. Fluoro Time: 30.9 minutes Dose: DAP [id number] cGycm2 3112.53 mGy Contrast Type and Amount: Visipaque 325 ml [place] Artery Percent Stenosis 1. Widely patent saphenous vein graft to the distal right core artery with 20% proximal graft narrowing and 60% proximal posterior descending branch narrowing 2. Patent saphenous vein graft to the first and second marginal branches of the codominant circumflex with tandem focal 75% proximal and mid graft stenosis and 80% stenosis of the proximal portion of the second marginal branch just after the anastomotic site Diagnostic Cath Left Main 90% stenosis as recently defined LAD 100% proximal occlusion as recently defined Circumflex 100% proximal occlusion as recently defined Right Coronary 100% mid vessel occlusion has recently defined Left Ventriculography Left Ventriculography was not performed. Hemodynamics The aortic pressure is 106/44 mmHg with a mean of 62 mmHg. The left ventricular pressure is 116/8 mmHg with a mean of mmHg. The left ventricular end diastolic pressure is 23 mmHg. PCI Technique Lesion Anticoagulation was achieved with Angiomax. Patient was preloaded with Angiomax IV 10 ml. Percutaneous coronary intervention was performed on the Anastamosis of the SVG to the second marginal Branch. The lesion stenosis prior to intervention was 80% with LAST 3 flow. A 6F LCB 100CM Guide Catheter was used to engage the SVG ostium. A BMW 190cm Interventional Guidewire was used [place] [address] CARDIAC CATH REPORT Name: VIRGILIO BHATT Room: [address] Berny M.RCally#: [id number] Admission: 07/22/20 Attend Phys: Tim Gudino MD, Discharge: Date of : 41 Report #: [id number] BALLOON DILATION A Balloon catheter Mini Trek RX 2.0 X 8 was inserted and inflated up to 16.00atm for 10seconds. Additional Inflation: 20.00atm for 11seconds. Additional Inflation: 20.00atm for 8seconds. A Balloon Catheter EA Trek RX 2.25 X 8 was inserted and inflated up to 8.00atm for 5 seconds. Additional Inflation: 8.00 paoal for 7 seconds. STENT DEPLOYMENT A drug-eluting stent Aurelio RX Stent 2.0X12mm was inserted and inflated up to 10.00atm for 8seconds. Additional Inflation: 12.00atm for 8seconds. Additional Inflation: 12.00atm for 8seconds. POST STENT DEPLOYMENT BALLOON DILATION A Balloon catheter Trek RX 2.25 X 8 was inserted and inflated up to 14.00atm for 10seconds. Additional Inflation: 16.00atm for 8seconds. Additional Inflation: 17.00atm for 7seconds. Final angiography reveals 0 % stenosis with LAST 3 flow. PCI Technique Lesion 2 Percutaneous Coronary Intervention was performed on the Mid portion of the SVG Graft to the Marginal Branches. Patient was preloaded with Angiomax IV 10 ml. The lesion stenosis prior to intervention was 75% with LAST 3 flow. A 6F LCB 100CM Guide Catheter was used to engage the SVG ostium. A ProwaterFlex 180CM Interventional Guidewire was used to cross the lesion. Stent Deployment A drug-eluting stent Aurelio RX Stent 2.75X8mm was inserted and inflated up to 15.00atm for 9seconds. Additional Inflation: 16.00atm for 5seconds. Final angiography reveals 0 % stenosis with LAST 3 flow. PCI Technique Lesion 3 Percutaneous Coronary Intervention was performed on the Proximal portion of the saphenous vein graft to the marginal branches of the circumflex. The lesion stenosis prior to intervention was 75% with LAST 3 flow. Stent Deployment A drug-eluting stent [place] RX Stent 3.0X12mm was inserted and inflated up to 15atm for seconds. Post Stent Deployment Balloon Dilation A Balloon catheter NC Trek RX 3.25X8 was inserted and inflated up to [facility] [address] [place] [address] CARDIAC CATH REPORT Name: VIRGILIO BHATT Room: [address] LiliCally#: [id number] Admission: 07/22/20 Attend Phys: Tim Gudino MD, Discharge: Date of : 41 Report #: [id number] 16atm for 10seconds. Final angiography reveals 10 % stenosis with LAST 3 flow. Conclusion 1. Severe coronary artery disease as recently defined characterized by the following: A 90% diffuse left main stenosis B 100% proximal LAD occlusion C 100% proximal circumflex occlusion E 100% mid right coronary occlusion 2. Graft study characterized by the following: A patent saphenous vein graft to the distal right coronary artery with a 20% proximal graft narrowing B patent saphenous vein graft to 2 marginal branch of the circumflex with tandem 75% focal proximal and mid graft narrowings and 80% stenosis of the proximal portion of the second marginal branch distal just after the anastomotic site C patent MELLO graft to the LAD as recently defined with an akinetic distal septum apex and anteroapical segment reflected by prior studies 3. Successful PCI with deployment of a drug-eluting stent at the site of 80% stenosis of the second marginal branch of the circumflex via the saphenous vein graft with 0% residual narrowing 4. Successful PCI with deployment of drug-eluting stents at the sites of 75% proximal and mid circumflex saphenous vein graft narrowing with 10 and 0% residual narrowings and LAST-3 flow to the distal circulation Recommendations Cardiac Risk Reduction Program Medications Administered Aspirin (any) Ticagrelor [address] [address] CARDIAC CATH REPORT Name: VIRGILIO BHATT Room: [address] Berny MCallyRCally#: [id number] Admission: 07/22/20 Attend Phys: Tim Gudino MD, Discharge: Date of : 41 Report #: [id number] Diagnostic Cath Approved by: Tim Gudino MD Date/Time: 07/22/2020 16:14:56 <ELECTRONICALLY SIGNED> By: Tim Gudino MD, FACC 07/22/20 162 21 162Josanjay Gudino MD, FACC /INF
--- NOTE | 2020-07-22 16:45 | EKG ---
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 Clerk: : 1945 Requested By: Tim Gudino Order Number: [id number] Leonie MD: Tim Gudino Measurements Intervals [place] Rate: 95 P: 114 IA: 169 QRS: -33 QRSD: 185 T: 163 QT: 438 QTc: 551 Interpretive Statements Sinus rhythm Left bundle branch block Compared to ECG 06/04/2020 15:14:19 No significant changes Electronically Signed On 07-22-2020 16:45:34 CHIP APPLYING MACHINE TENDER by Tim Gudino [email or web address] <ELECTRONICALLY SIGNED> By: Tim Gudino MD, [facility] 07/22/20 1645 0834 Tim Gudino MD, [facility] /EPI
--- NOTE | 2020-07-22 17:24 | NUR ---
PT REMAINED ALERT AND ORIENTED. VITALS COMPLETED PER ORDERS. MEDS GIVEN ORDERED. PT RESTING IN BED. PT EDUCATED ON NOT USING RIGHT ARM TILL 2100. FALL RISK PRECAUTIONS IN PLACE. HOURLY ROUNDING COMPLETED. HEART MONITORED. WILL CONTINUE TO MONITOR.
[2020-07-23] VITALS (7 sets, daily range): BP systolic 124–153; BP diastolic 49–83
--- NOTE | 2020-07-23 04:59 | NUR ---
PT A&O X4. VSS ON 3L BY NC. DRESSING TO RUE FROM CARDIAC CATH C/D/I. PT SLEEPING/RESTING THROUGH THE NIGHT. LT LIMB ALERT FOR FISTULA. SUPERVISOR CONTACT LENS IN PLACE. CALL LIGHT WITHIN REACH. WILL CONTINUE TO MONITOR.
[2020-07-23 09:04] LABS: HEMATOCRIT 33.6 % (42.0-52.0); HEMOGLOBIN 10.1 gm/dL (14.0-18.0); MCH 31.3 pg (26.0-34.0); MCHC 30.1 g/dL (28.0-37.0); MPV 7.6 fl. (7.2-11.1); RBC 3.23 mil/uL (4.50-6.00); RDW-CV 18.2 % (10.5-14.5); WBC 6.9 thou/uL (4.0-11.0)
[2020-07-23 09:15] LABS: ALBUMIN 2.6 g/dL (3.4-5.0); CALCIUM 8.6 mg/dL (8.5-10.1); CREATININE 6.5 mg/dL (0.6-1.3); TOTAL BILIRUBIN 0.7 mg/dL (<0.1-1.0); TOTAL PROTEIN 6.8 g/dL (6.4-8.2)
[2020-07-23 09:20] LABS: TROPONIN-I LEVEL 0.67 ng/mL (<0.06)
--- NOTE | 2020-07-23 09:24 | NUR ---
Cardiac Rehab. Cardiac Rehab Patient Education booklet and Heart Healthy Diet book and Stent cards and stent booklet given to patient by label tacker staff due to patient testing positive for Covid-19.
--- NOTE | 2020-07-23 13:10 | NUR ---
CM ATTEMPTED TO CALL PT 2X, W/O SUCCESS. PER ROUNDING AND CHART HX, PT ATTENDS [facility], SEAT TIMES T-TH-S. POC IS FOR PT TO D/C AFTER DIALYSIS AT [facility].
--- NOTE | 2020-07-23 13:28 | EKG ---
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: : 1945 Requested By: Tim Gudino Order Number: [id number] Leonie MD: Orville Austin Measurements Intervals [place] Rate: 93 P: 0 MD: 175 QRS: -39 QRSD: 184 T: 168 QT: 440 QTc: 548 Interpretive Statements Sinus rhythm Ventricular premature complex Left bundle branch block Compared to ECG 07/22/2020 08:34:32 Ventricular premature complex(es) now present Electronically Signed On 07-23-2020 13:28:42 CENTER MEDICAL DIRECTOR by Orville Austin [email or web address] <ELECTRONICALLY SIGNED> By: Orville Austin MD, FACC 07/23/20 1328 1105 1105 Orville Austin MD, FAC /EPI
--- NOTE | 2020-07-23 16:56 | NUR ---
[facility]. SHE SAID PT.TOLD HER DURING PHONE CALL THAT HE TESTED POSITIVE FOR COVID. NO RESULTS IN COMPUTER. ROB CONTACTED [facility]/MASTER POLICE DETECTIVE. SHE HAD LAB PUT RESULTS IN COMPUTER SO ROB COULD FAX TO [facility]. ROS NOTIFIED. SHE SAID PT. WILL NEED TO GO TO [facility] FOR 21 DAYS FOR DIALYSIS. THIS IS WHERE ALL THEIR POSITIVE COVID PTS GO. PT.IN DIALYSIS NOW. ROB INFORMED RN,CHOLO AND PUT IN PTS DISCHARGE ORDERS. WILL FAX INFORMAITON TO ROS/[facility]-[phone]. SHE WILL FORWARD ON TO [facility].
[2020-07-24 00:47] VITALS: BP 163/83
--- NOTE | 2020-07-24 10:18 | D ---
[address] [address] DISCHARGE SUMMARY Name: NOVAVIRGILIO Jennifer Room: [address] Berny Hopper#: [id number] Admission: 07/22/20 Attend Phys: Tim Gudino MD, Discharge: 07/23/20 Date of : 41 Report #: [id number] THIS REPORT FOR: //name// cc: Dileep Alejo DO Dileep Alejo DO ~ CC: Dileep Gudino DATE OF SERVICE: 07/23/2020 FINAL DISCHARGE DIAGNOSES: 1. Unstable angina. 2. Coronary artery disease. 3. Status post coronary artery bypass grafting. 4. Status post percutaneous coronary intervention to the vein graft to the circumflex on 07/22/2020. 5. Ischemic cardiomyopathy. 6. End-stage renal disease. 7. Type 2 diabetes. 8. Bpygw-rd-nupoark diastolic heart failure. PROCEDURES: 07/22/2020 -- left heart catheterization, selective coronary arteriography, graft study, percutaneous coronary intervention via the saphenous vein graft to the second marginal branch of the circumflex with PCI to the 2 sites in the proximal and mid vein graft to the circumflex. The patient is a pleasant 75-year-old male with end-stage renal disease. He has complex coronary artery disease, status post remote coronary artery bypass grafting. In September of this year, I stented the distal portion of the vein graft to the circumflex. He underwent prior stenting of the vein graft to the right coronary artery. He has a patent MELLO graft to the LAD, but the anteroapical and distal septal segments are akinetic. He presented with increasing angina following a pattern of clinical instability despite therapy of long-acting nitrates and ranolazine. In this context, I performed cardiac catheterization on 07/22/2020, which revealed a widely patent vein graft to the right coronary artery with 20% proximal graft narrowing. He had a patent saphenous vein graft to 2 prominent marginal branches of the circumflex with sequential 75% proximal and mid graft narrowings with 80% stenosis of the second marginal branch distal to the anastomotic site. I deployed 1 stent in the second marginal branch and 2 in the proximal mid portion of the circumflex with 10%, 0% and 0% residual narrowings and LAST 3 flow of the distal vessel. Troponin cory inconsequentially to 0.67. Additional labs: Hemoglobin 10.1, platelets 153,000; potassium 4.0, BUN 48, creatinine 6.5. [place] [address] DISCHARGE SUMMARY Name: VIRGILIO BHATT Room: [address] Ruchi#: [id number] Admission: 07/22/20 Attend Phys: Tim Gudino MD, Discharge: 07/23/20 Date of : 41 Report #: [id number] The patient underwent dialysis the day post-procedurally and was discharged to home on the following medications: Atorvastatin 20 mg daily, glimepiride 2 mg daily, Lantus insulin 25 units subcutaneously at bedtime, L-thyroxine 112 mcg daily, vitamin D or cholecalciferol 1000 units daily, folic acid with vitamin B complex 1 mg daily, furosemide 20 mg b.i.d., aspirin 81 mg daily, ticagrelor or Brilinta 90 mg b.i.d., p.r.n. sublingual nitroglycerin, Imdur 30 mg daily, ranolazine 500 mg b.i.d., metoprolol succinate 25 mg daily, vitamin B complex, vitamin C, Biotin one tablet daily. The patient is scheduled to return to see my nurse practitioner in 7-10 days and myself in 3 months. Therefore, the patient is discharged to home in stable condition on the aforementioned medications with followup as iterated above. <ELECTRONICALLY SIGNED> By: Tim Gudino MD, FACC 07/24/20 1018 0947 1015Tim Gudino MD, FAC /nt
== END 2020-07-23 20:00 | disposition home or self-care (01) ==
LOC: M.CL 07:47 → M.TBA-CV 13:16 → M.ORTHSURG 16:25
PROVIDERS: ADMIT Internal Medicine; ATTEND Internal Medicine
DX: I25.110 Atherosclerotic heart disease of native coronary artery with unstable angina pectoris (principal); N18.6 End stage renal disease; E11.22 Type 2 diabetes mellitus with diabetic chronic kidney disease; I50.33 Acute on chronic diastolic (congestive) heart failure; I25.5 Ischemic cardiomyopathy; Z79.82 Long term (current) use of aspirin; Z79.4 Long term (current) use of insulin; Z79.899 Other long term (current) drug therapy; Z95.1 Presence of aortocoronary bypass graft; Z99.2 Dependence on renal dialysis

== ENCOUNTER 2020-11-23 11:59 | Emergency (ER) | payer MEDICARE ==
[~2020-11-23] VITALS: Ht 177.8 cm; Wt 63.5 kg
[~2020-11-23 11:59] MED LIST changes: +RENA-VITE RX T1 EACH
[2020-11-23 13:17] VITALS: BP 100/52
--- NOTE | 2020-11-25 10:41 | EKG ---
[place] [address] ELECTROCARDIOGRAM REPORT Name: VIRGILIO BHATT Room: [facility]#: [id number] Admission: 11/23/20 Attend Phys: Discharge: 11/23/20 Date of : 41 Date of Service: 11/23/20 1215 Report #: [id number] THIS REPORT FOR: //name// [facility] ED Test Date: 2020-11-23 Test Time: 12:15:37 Pat Name: VIRGILIO BHATT Department: Room: Gender: We[place]: [place] : 1945 Requested By: Shimon Naik Order Number: [id number] MD: Clyde Ramirez Measurements Intervals [place] Rate: 93 P: -9 [place]: 57 QRS: 133 QRSD: 166 T: -53 QT: 437 QTc: 544 Interpretive Statements Ventricular-paced complexes No further analysis attempted due to paced rhythm Compared to ECG 07/23/2020 11:05:32 no change Electronically Signed On 11-25-2020 10:41:19 CDT by Clyde Ramirez [email or web address] <ELECTRONICALLY SIGNED> By: Clyde Ramirez MD, FACC 11/25/20 1041 1215 1215 Clyde Ramirez MD, [facility] /EPI
== END 2020-11-23 13:18 | disposition home or self-care (01) ==
LOC: M.ERS 11:59
DX: I95.9 Hypotension, unspecified (principal); E11.22 Type 2 diabetes mellitus with diabetic chronic kidney disease; N18.9 Chronic kidney disease, unspecified; I50.9 Heart failure, unspecified; Z79.4 Long term (current) use of insulin; Z87.891 Personal history of nicotine dependence; Z95.5 Presence of coronary angioplasty implant and graft; Z87.01 Personal history of pneumonia (recurrent); Z96.651 Presence of right artificial knee joint

== ENCOUNTER → 2020-12-19 | Outpatient (CLI) | payer MEDICARE | LOC: M.RAD 11:29 | PROVIDERS: ATTEND Internal Medicine Critical Care Medicine | DX: J96.11 Chronic respiratory failure with hypoxia (principal) ==

== ENCOUNTER 2020-12-21 01:39 | Inpatient (IN) | payer MEDICARE ==
[~2020-12-21] VITALS: Ht 177.8 cm; Wt 59.6 kg
[2020-12-21] VITALS (52 sets, daily range): BP systolic 65–123; BP diastolic 17–64
[2020-12-21 02:01] LABS: BE -5.3 mmol/L (-2 to +3); PCO2 29.1 mmHg (35.0-45.0); pH 7.412 (7.340-7.450)
[2020-12-21 02:03] LABS: PO2 57.8 mmHg (75.0-100.0)
[2020-12-21 02:14] LABS: HEMOGLOBIN 12.5 gm/dL (14.0-18.0); MCH 32.1 pg (26.0-34.0); MCHC 31.2 g/dL (28.0-37.0); MCV 102.8 fL (80.0-100.0); NUCLEATED RBCS 0 /100WBC; PLATELET COUNT* 105 thou/uL (150-400); RBC 3.89 mil/uL (4.50-6.00); RDW-CV 19.3 % (10.5-14.5); WBC 13.4 thou/uL (4.0-11.0)
[2020-12-21 02:30] LABS: ANION GAP 17 mmol/L (7-16); BUN 47 mg/dL (7-18); CALCIUM 8.8 mg/dL (8.5-10.1); CHLORIDE 96 mmol/L (98-107); CO2 23 mmol/L (21-32); CREATININE 5.5 mg/dL (0.6-1.3); GLUCOSE 248 mg/dL (70-99); SODIUM 136 mmol/L (136-145)
[2020-12-21 02:31] LABS: POTASSIUM 6.2 mmol/L (3.5-5.1)
[2020-12-21 02:36] LABS: ALBUMIN 3.7 g/dL (3.4-5.0); ALKALINE PHOSPHATASE 132 U/L (46-116); LIPASE 69 U/L (73-393); MAGNESIUM 2.5 mg/dL (1.8-2.4); NT-PRO BRAIN NAT PEPTIDE > 35000 pg/mL (<300); SGOT 59 U/L (15-37); SGPT 48 U/L (30-65); TOTAL BILIRUBIN 1.5 mg/dL (<0.1-1.0); TOTAL PROTEIN 8.2 g/dL (6.4-8.2)
[2020-12-21 02:55] LABS: INR 1.2; PROTIME 12.2 Seconds (9.20-11.50)
[2020-12-21 04:26] LABS: ABSOLUTE LYMPHOCYTES 0.8 thou/uL (0.8-5.3); ABSOLUTE MONOCYTES 0.4 thou/uL (0.0-1.2); ABSOLUTE NEUTROPHILS 12.2 thou/uL (1.6-8.1)
[2020-12-21 04:27] LABS: ANISOCYTOSIS 1+; PLATELET ESTIMATE DECREASED
[2020-12-21 10:51] LABS: CHOLESTEROL 91 mg/dL (<200); HDL CHOLESTEROL 47 mg/dL (>40); LDL CHOLESTEROL 36 mg/dL (<100); TC:HDL 1.9 Ratio (Not establshd); TRIGLYCERIDE 43 mg/dL (<150); VLDL 9 mg/dL (<40)
[2020-12-21 10:52] LABS: SERUM ASSESSMENT Clear
[2020-12-21 10:54] LABS: TROPONIN-I LEVEL 6.67 ng/mL (<0.06)
--- NOTE | 2020-12-21 18:25 | NUR ---
Pt had dialysis today. Pt was quite lethargic afterward. VSS. Pt was more alert after a short nap and food. Pt on NC and is maintaining a saturation >95%. Pt denies pain. See assessment as charted. Central line placed per Paz.
--- NOTE | 2020-12-21 23:13 | NUR ---
AT 1930 PT GIVEN PO TYLENOL FOR TEMP 101.1. PT VOMITIED UP WATER WITH MEDS AT SHAHBAZ TIME. PT CLEANED, NEW GOWN AND LINENS CHANGED. PT GIVEN PRN ZOFRAN TO RESOLVE NAUSEA. AT 2099 IV LEVOPHED STARTED TO MAINTAIN MAP OF 65. PT NO LONGER NAUSEATED AND STATES NO MORE FLUID OR MEDS TONIGHT.
[2020-12-22] VITALS (50 sets, daily range): BP systolic 65–134; BP diastolic 43–78
[2020-12-22 04:38] LABS: ABSOLUTE LYMPHOCYTES 0.3 thou/uL (0.8-5.3); ABSOLUTE MONOCYTES 0.8 thou/uL (0.0-1.2); ABSOLUTE NEUTROPHILS 11.4 thou/uL (1.6-8.1); BASOPHILS 0.3 %; LYMPHOCYTES 2.8 %; MCH 31.7 pg (26.0-34.0); MCHC 31.5 g/dL (28.0-37.0); MCV 100.7 fL (80.0-100.0); MONOCYTES 6.5 %; MPV 8.6 fl. (7.2-11.1); NUCLEATED RBCS 0 /100WBC; PLATELET COUNT* 71 thou/uL (150-400); POLYS 90.4 %; RBC 3.48 mil/uL (4.50-6.00); RDW-CV 18.4 % (10.5-14.5); WBC 12.6 thou/uL (4.0-11.0)
[2020-12-22 04:40] LABS: CALCIUM 9.1 mg/dL (8.5-10.1); POTASSIUM 4.8 mmol/L (3.5-5.1)
[2020-12-22 04:44] LABS: CREATININE 3.6 mg/dL (0.6-1.3)
[2020-12-22 06:06] LABS: HEPATITIS B SURFACE AG Negative (Negative)
--- NOTE | 2020-12-22 09:44 | EKG ---
[place] [address] ELECTROCARDIOGRAM REPORT Name: VIRGILIO BHATT Room: [address] ADM IN M.R.#: [id number] Admission: 12/21/20 Attend Phys: Janet Jeffers MD Discharge: Date of : 41 Date of Service: 12/21/20 0145 Report #: [id number] THIS REPORT FOR: //name// [facility] ED Test Date: 2020-12-21 Test Time: 01:45:43 Pat Name: VIRGILIO BHATT Department: Room: [facility] Gender: M Pipe Maker: AMANDA : 1945 Requested By: Tabitha Chen Order Number: [id number] MD: Clyde Ramirez Measurements Intervals Evans Rate: 107 P: 6 AK: 115 QRS: 136 QRSD: 168 T: -47 QT: 382 QTc: 510 Interpretive Statements atrial fibrillation ventricular paced beats noted Compared to ECG 11/23/2020 12:15:37 atrial fibrillation now noted Electronically Signed On 12-22-2020 9:44:04 CDT by Clyde Ramirez [email or web address] <ELECTRONICALLY SIGNED> By: Clyde Ramirez MD, FAC 12/22/20 0944 0145 0145 Clyde Ramirez MD, [facility] /EPI
--- NOTE | 2020-12-22 09:57 | CON ---
[address] [address] CONSULTATION Name: VIRGILIO BHATT Room: [address] ADM IN M.R.#: [id number] Admission: 12/21/20 Attend Phys: Janet Jeffers MD Discharge: Date of : 41 Report #: [id number] THIS REPORT FOR: cc: Dileep Alejo Bradley Dean DO Blick, David R. MD [facility] ~ DATE OF SERVICE: 12/21/2020 HISTORY OF PRESENT ILLNESS: The patient is a 75-year-old single white male who I was asked to see in the hospital today after he complained of being short of breath. The patient has an extensive complicated past medical history. He states he had multivessel bypass surgery at [place] in 1997. He has had several stents since that time. He has a history of sick sinus syndrome and he had a previous pacemaker inserted. He eventually underwent upgrade of his pacemaker to a defibrillator by Dr. Jones at [facility]. He developed end-stage renal disease and is on hemodialysis 3 times a week. He is not very active at this time. Recently, he has been having increasing shortness of breath and a cough. He denied any edema. Denied palpitations, discharge of defibrillator. He called EMS and was brought to [place] last night for further evaluation and treatment. PAST MEDICAL HISTORY: He has had a history of PAD with previous aortobifemoral bypass. He has had a fem-fem bypass. He has a history of diabetes, hypertension, hyperlipidemia. PAST SURGICAL HISTORY: He has had knee replacements. MEDICATIONS: His current medications consist of the following: He is on: 1. Metoprolol. 2. Imdur. 3. Ranexa. 4. Lipitor. 5. Amaryl. 6. Synthroid. 7. Insulin. 8. Lasix. 9. Aspirin. 10. Brilinta. ALLERGIES: He has no known drug allergies. FAMILY HISTORY: Positive for heart disease. SOCIAL HISTORY: He is single, lives by himself. [place] [address] CONSULTATION Name: VIRGILIO BHATT Room: [address]#: [id number] Admission: 12/21/20 Attend Phys: Janet Jeffers MD Discharge: Date of : 41 Report #: [id number] alcohol abuse. REVIEW OF SYSTEMS: No history of stroke. He does have oxygen at home. He uses inhaler. No history of liver disease, cancer, psychiatric illness, chronic skin condition. PHYSICAL EXAMINATION: GENERAL: Revealed an elderly, frail-appearing white male, lying in bed, who appeared in no acute distress. VITAL SIGNS: His blood pressure was 100/60, pulse is 90, he is afebrile. HEENT: He was anicteric. Conjunctivae pale. Mucous members moist. NECK: Veins appear distended. CHEST: Revealed decreased breath sounds at the bases. CARDIOVASCULAR: Regular rate and rhythm. No murmurs. ABDOMEN: Soft. EXTREMITIES: Had no edema. Dorsalis pedis pulse cannot be palpated. SKIN: Cool and dry. RADIOLOGICAL DATA: ECG showed P-wave sensing and ventricular capture. His workup, he just had an echocardiogram done last May here at [place] that showed an ejection fraction only 20%, left ventricular hypertrophy, left atrial enlargement, aortic sclerosis. His x-rays last night in the Emergency Room showed interstitial lung disease. Normal heart size. LABORATORY WORK: Sodium 136, BUN 47, creatinine 1.5. His troponin is 2.23. BNP 35,000. His white blood cell count is 13.4, hemoglobin 12.5. IMPRESSION AND RECOMMENDATIONS: 1. Respiratory failure. Possible bronchitis. We recommend antibiotics. 2. Ischemic cardiomyopathy. The patient is on a beta jenni. I would consider adding an TATI inhibitor or ARB if his blood pressure tolerates. I would not recommend Aldactone due to kidney disease. 3. Type 2 myocardial infarction. I would not recommend cardiac catheterization. I would continue aspirin and Brilinta. 4. Diabetes. 5. Hyperlipidemia. [place] [address] CONSULTATION Name: VIRGILIO BHATT Room: [address] IN M.R.#: [id number] Admission: 12/21/20 Attend Phys: Janet Jeffers MD Discharge: Date of : 41 Report #: [id number] 6. Previous tobacco abuse. 7. Peripheral arterial disease with previous bypass. <ELECTRONICALLY SIGNED> By: Clyde Ramirez MD, FACC 12/22/20 0957 0812 [id number] Rmairez MD, FACC /nt
--- NOTE | 2020-12-22 17:59 | NUR ---
PT TITRATED OFF OF LEVO THIS SHIFT. RESTARTED MIDORINE. PT AMBULATES WITH SBA, MUST CHANGE POSITIONS SLOWLY. SELF CARE BATH, PT TURNS SELF. DENIES PAIN. 4 LPM NC (BASELINE). SEE ASSESSMENT CHARTED. AFEBRILE THIS SHIFT.
--- NOTE | 2020-12-22 21:00 | NUR ---
INITAL ASSESMENT COMPLETED AT 1999. PT'S MAP < 60. PT GIVEN IV ZOFRAN PRIOR TO PO MIDODRINE TO AVOID NAUSEA AND VOMITING. CALL LIGHT IN REACH, PT USING PROPERLY.
[2020-12-23] VITALS (51 sets, daily range): BP systolic 66–116; BP diastolic 27–69
[2020-12-23 04:13] LABS: ABSOLUTE LYMPHOCYTES 0.4 thou/uL (0.8-5.3); ABSOLUTE MONOCYTES 0.4 thou/uL (0.0-1.2); ABSOLUTE NEUTROPHILS 4.7 thou/uL (1.6-8.1); ALBUMIN 2.8 g/dL (3.4-5.0); BASOPHILS 0.5 %; EOSINOPHILS 0.4 %; HEMATOCRIT 31.4 % (42.0-52.0); LYMPHOCYTES 7.8 %; MCH 31.8 pg (26.0-34.0); MCHC 31.8 g/dL (28.0-37.0); MONOCYTES 7.6 %; NUCLEATED RBCS 0 /100WBC; PHOSPHORUS* 5.4 mg/dL (2.5-4.9); PLATELET COUNT* 61 thou/uL (150-400); POLYS 83.7 %; POTASSIUM 4.3 mmol/L (3.5-5.1); RBC 3.14 mil/uL (4.50-6.00); RDW-CV 18.7 % (10.5-14.5); TOTAL PROTEIN 6.4 g/dL (6.4-8.2); WBC 5.6 thou/uL (4.0-11.0)
[2020-12-23 04:50] LABS: CREATININE 4.6 mg/dL (0.6-1.3)
--- NOTE | 2020-12-23 14:53 | NUR ---
ICU rounds: ME. Remains on Lev gtt. Positive cultures, ID consulted. Therapy evals ordered. Pt resides at home alone. Independent. Hx of HH. No hx of SNF. Pt wears home o2 at [facility] at 2.5L provided through [employer]. Pt states that he has been requiring it during the day PRN. Goal is home at dc. CM to follow for dc needs, ?HH.
--- NOTE | 2020-12-23 17:13 | CON ---
[address] [address] CONSULTATION Name: VIRGILIO BHATT Room: [address] IN M.R.#: [id number] Admission: 12/21/20 Attend Phys: Janet Jeffers MD Discharge: Date of : 41 Report #: [id number] THIS REPORT FOR: cc: Dileep Alejo Bradley Dean DO Ja Russell MD ~ DATE OF SERVICE: 12/23/2020 Consult has been requested by Dr. Burke Chen. INDICATION FOR CONSULTATION: Shortness of breath. HISTORY OF PRESENT ILLNESS: A 75-year-old gentleman with past medical history is as mentioned below. This does include an extensive history of smoking. He did smoke for several decades, but discontinued in 1989. He has end-stage renal disease. He is on hemodialysis. His left ventricular ejection fraction is around 20%. He has had coronary artery disease. I have been following him in the office. Previous spirometry has shown a restrictive pattern. The patient had not wanted to do full pulmonary function tests due to the COVID-19 pandemic as a definite distinction between COPD and asthma was not possible. I have been treating him as bronchial asthma. 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 He does have a longstanding history of disturbed sleep at night as well as sleepiness during the day. He sleeps in a recliner. The patient had come to see me in the office on 12/19/2020. At that time, he had stated that he was feeling more short of breath than his baseline; however, he did not report any sudden increase in his shortness of breath. There was no increase in sputum production. No upper respiratory complaints, no increase in swelling of lower extremities other than a chest x-ray at that time, it had shown a linear opacity in the right mid zone. This was read by the radiologist as atelectasis. I suspect that a small infiltrate may also be present in this region; and therefore, I had ordered azithromycin 500 mg daily. I had also considered giving him a prednisone; however, he was due to get his second dose of Moderna COVID-19 vaccine last Wednesday; and therefore, I had held that. The patient had been on Breo and he was attributing some of these complaints to Breo, although this was not my impression; therefore, I had ordered this to be switched over to albuterol and budesonide via nebulizer; however, the patient had not switched the same as yet. The patient subsequently in fact developed a further increase in shortness of breath and was therefore admitted to this hospital on 12/21. The patient's chest x-ray performed on 12/21 shows increase in [place] [address] CONSULTATION Name: NOVAVIRGILIO Room: [address] IN M.R.#: [id number] Admission: 12/21/20 Attend Phys: Janet Jeffers MD Discharge: Date of : 41 Report #: [id number] This finding is not present on the x-ray performed on 12/16. On his new chest x-rays performed during this admission, I in fact do not identify a definite infiltrate in the right lung; however, if the infiltrates are still present, these could be masked by pulmonary vascular congestion. The patient did undergo dialysis on the last Wednesday. He tolerated this well. Subsequent chest x-ray shows improvement in pulmonary vascular congestion, on the chest x-rays although this is still present. He has had at least 2 blood cultures, which are positive for methicillin-sensitive staph. He has been hypotensive and currently is on low-dose norepinephrine. He is maintaining O2 saturation at around 100%. He is only on 4 liters nasal cannula. He still does not have any upper respiratory complaints. There is no increase in swelling of lower extremities or calf pain, not bringing up much sputum. Overall, he reports improvement in shortness of breath compared with when he was admitted, there is a small wedge-shaped area on his V/Q scan. REVIEW OF SYSTEMS: The patient's review of systems for 12 points is negative except as mentioned above. PAST MEDICAL HISTORY: End-stage renal disease. He is on hemodialysis via a fistula. He has not had a dialysis catheter anytime recently. Coronary artery disease, congestive heart failure. His left ventricular ejection fraction is only 20%. Bronchial asthma/possible COPD. His last available spirometry from our office about a year ago shows a significant restrictive pattern with an FEV1 of 1.06 liters, which is 38% of the reference range. I suspect that there is a significant underlying obstruction as well. Nocturnal hypoxemia, is on oxygen while asleep longterm. I suspect that he likely has obstructive and possibly central sleep apnea as well. Allergic rhinitis, abdominal aortic bypass, femoral bypass, knee replacement, status post pacemaker placement. SOCIAL HISTORY: He says he used to smoke about half a pack a day, but smoked for several decades and discontinued in 1989. No known history of heavy alcohol use or illegal drug use. CURRENT MEDICATIONS: List in barcoo reviewed. HOME MEDICATIONS: List also in barcoo reviewed. ALLERGIES: No known drug allergies. FAMILY HISTORY: There is no pertinent family history. PHYSICAL EXAMINATION: GENERAL: He is alert, awake and oriented, does not appear to be in any distress at this time. He is on low-dose norepinephrine though. He has a pulse of [address] [facility] [address] [place] [address] CONSULTATION Name: VIRGILIO BHATT Room: [address] ADM IN .R.#: [id number] Admission: 12/21/20 Attend Phys: Janet Jeffesr MD Discharge: Date of : 41 Report #: [id number] and a blood pressure of 103/56. He is saturating 100%. He is on 4 liters nasal cannula. The respiratory rate is 14. He is afebrile with a temperature of 36.8. HEENT: Head is normocephalic and atraumatic. Pupils are equal and reactive. There is no throat erythema. He does have poor dentition. NECK: Does not show raised JVP, asymmetry, mass or lymph nodes. CHEST: Symmetrical expansion on inspection and palpation. On auscultation, breath sounds are bilaterally equal, mildly decreased. I do not hear any added sounds. HEART: Regular. There is no murmur. ABDOMEN: Soft and nontender. EXTREMITIES: Lower extremities show no edema. There are some varicose veins noted. There is, however, no calf tenderness. SKIN: Dry and intact. NEUROLOGICAL: Moves all extremities bilaterally equally and spontaneously with no focal deficit identified. The patient's chest x-rays are as discussed above. V/Q scan also as discussed above. Lab work in barcoo reviewed. COVID-19 antigen is negative. He has blood cultures, which are positive for MSSA, at least 2 blood cultures are positive. ASSESSMENT AND PLAN: 1. Xkdvy-ng-pqquvfs hypoxemic respiratory failure. The etiology of his decompensation appears to be congestive heart failure as well as methicillin-sensitive staph sepsis. The source of methicillin-sensitive staph in his blood; however, remains to be defined. As above, I suspect that there is an infiltrate noted on his chest x-ray performed as an outpatient. On 12/19; however, I do not identify the same on his chest x-rays done during this admission; however, some infiltrates could have been masked by pulmonary vascular congestion. 2. Methicillin-sensitive staph sepsis. See discussion as above. The ID Service is on the case. I understand that his next hemodialysis is planned for tomorrow. I will do a CT chest without contrast after his dialysis tomorrow to define this further and assess as to whether any underlying pneumonia is present. 3. Umolp-bs-qumgwqw systolic congestive heart failure. There is improvement in pulmonary vascular congestion compared with his chest x-ray performed on admission; however, compared with 12/19, there is a significant increase in pulmonary vascular congestion. He does not, however, appear to be in any distress at this time. I understand the next dialysis is planned for tomorrow. 4. End-stage renal disease, again on dialysis as above. 5. Bronchial asthma/possible chronic obstructive pulmonary disease. [place], [place] [address] CONSULTATION Name: VIRGILIO BHATT Room: [address] IN M.R.#: [id number] Admission: 12/21/20 Attend Phys: Janet Jeffers MD Discharge: Date of : 41 Report #: [id number] discussion above. He is on DuoNeb, we will continue. Down the line, I intend to restart his inhaled corticosteroid. He is not actively bronchospastic at this time, so I held off on Solu-Medrol. We will consider systemic steroids in case his respiratory status worsens or hypotension persists. 6. Hypersomnia/sleep disturbances/nocturnal hypoxemia. His last nocturnal pulse oximetry is limited study. We may have in fact underestimated his hypoxemia. The patient likely needs a BiPAP to be set up at his home for long-term use. We are planning to do a sleep study. The patient had decided to hold off on the same until the COVID-19 pandemic is over. 7. Elevated D-dimer/evaluation for thromboembolic phenomena. I will do venous Dopplers. V/Q scan is as above. My suspicion of pulmonary emboli at this time; however, still is low. Potentially a repeat echo to look at the right heart pressures could be done. If okay with the Nephrology service, we can do a CTA chest instead of CT chest without contrast as well; however, I noticed that there is a drop in platelet count; and therefore, the patient appears to be a poor candidate for anticoagulation at this time. 8. Thrombocytopenia. Defer followup to the primary and ID service. There is a significant drop in platelet count as above. If persist then a Hematology opinion can be a later consideration. 9. History of allergic rhinitis. 10. History of COVID-19. No evidence of recurrence at this time. 11. History of AICD placement. 12. History of diabetes. Thanks for this consultation. <ELECTRONICALLY SIGNED> By: Ja Russell MD 12/23/20 1713 1303 [id number] Russell MD /nt
--- NOTE | 2020-12-23 17:56 | NUR ---
PT HAD AN UNEVENTFUL SHIFT. CT SCAN TODAY WELL MORE BLOOD CULTURES. PT TO BE NPO AT 12A FOR LEANDRA IN AM. DIALYSIS TOMORROW. WAS NOT ABLE TO WEAN OFF OF LEVO THIS SHIFT. PT REMAINS HYPOTENSIVE. AFEBRILE. WILL CONTINUE TO MONITOR.
[2020-12-24] VITALS (41 sets, daily range): BP systolic 87–123; BP diastolic 43–67
[2020-12-24 04:48] LABS: HEMATOCRIT 32.5 % (42.0-52.0); HEMOGLOBIN 10.6 gm/dL (14.0-18.0); MCH 32.2 pg (26.0-34.0); MCHC 32.7 g/dL (28.0-37.0); MCV 98.6 fL (80.0-100.0); MPV 8.8 fl. (7.2-11.1); NUCLEATED RBCS 0 /100WBC; PLATELET COUNT* 65 thou/uL (150-400); RDW-CV 18.7 % (10.5-14.5); WBC 6.8 thou/uL (4.0-11.0)
[2020-12-24 04:58] LABS: ALBUMIN 2.9 g/dL (3.4-5.0); CALCIUM 8.1 mg/dL (8.5-10.1); CREATININE 5.5 mg/dL (0.6-1.3); MAGNESIUM 2.3 mg/dL (1.8-2.4); POTASSIUM 4.7 mmol/L (3.5-5.1); TOTAL BILIRUBIN 0.8 mg/dL (<0.1-1.0); TOTAL PROTEIN 6.6 g/dL (6.4-8.2)
[2020-12-24 05:48] LABS: ABSOLUTE EOSINOPHILS 0.2 thou/uL (0.0-0.7); ABSOLUTE LYMPHOCYTES 0.2 thou/uL (0.8-5.3); ABSOLUTE MONOCYTES 0.7 thou/uL (0.0-1.2); ABSOLUTE NEUTROPHILS 5.7 thou/uL (1.6-8.1)
[2020-12-24 05:49] LABS: ANISOCYTOSIS 1+; PLATELET ESTIMATE DECREASED; POIKILOCYTOSIS 1+
--- NOTE | 2020-12-24 07:11 | NUR ---
ASSESSMENTS CHARTED. PATIENT HAS BEEN NPO SINCE MIDNIGHT. PATIENT HAD 10 SECOND RUN OF V-TACH OVERNIGHT, SEE CHART FOR EKG STRIP. PATIENT SCHEDULED FOR DIALYSIS THIS AM AND LEANDRA IN THE AFTERNOON. NO OTHER SIGNIFICANT EVENTS OVERNIGHT. BLOOD GLUCOSE STABLE WHILE NPO
[2020-12-25] VITALS (71 sets, daily range): BP systolic 60–142; BP diastolic 30–119
[2020-12-25 05:20] LABS: ABSOLUTE EOSINOPHILS 0.1 thou/uL (0.0-0.7); ABSOLUTE LYMPHOCYTES 0.6 thou/uL (0.8-5.3); ABSOLUTE MONOCYTES 0.7 thou/uL (0.0-1.2); ABSOLUTE NEUTROPHILS 4.5 thou/uL (1.6-8.1); BASOPHILS 0.5 %; EOSINOPHILS 1.5 %; HEMOGLOBIN 10.2 gm/dL (14.0-18.0); LYMPHOCYTES 10.6 %; MCH 31.6 pg (26.0-34.0); MCHC 31.9 g/dL (28.0-37.0); MCV 99.3 fL (80.0-100.0); MONOCYTES 11.7 %; MPV 8.5 fl. (7.2-11.1); NUCLEATED RBCS 0 /100WBC; PLATELET COUNT* 53 thou/uL (150-400); POLYS 75.7 %; RBC 3.22 mil/uL (4.50-6.00); RDW-CV 19.1 % (10.5-14.5); WBC 5.9 thou/uL (4.0-11.0)
[2020-12-25 05:35] LABS: ALBUMIN 3.2 g/dL (3.4-5.0); CALCIUM 8.1 mg/dL (8.5-10.1); POTASSIUM 4.2 mmol/L (3.5-5.1); TOTAL BILIRUBIN 0.9 mg/dL (<0.1-1.0); TOTAL PROTEIN 6.8 g/dL (6.4-8.2)
[2020-12-25 05:36] LABS: CREATININE 3.9 mg/dL (0.6-1.3)
--- NOTE | 2020-12-25 07:01 | NUR ---
ASSESSMENTS CHARTED. PATIENT RESCHEDULED FOR LEANDRA TODAY. PATIENT COMPLAINED OF PAIN IN HIS TAILBONE. ON ASSESSMENT, COCCYX AND BUTTOCKS WERE DISCOLORED AND NON BLANCHABLE. WOUND PICTURES TAKEN AND PLACED IN CHART. PATIENT INSTRUCTED ON TURNS AND IMPORTANCE OF RELIEVING PRESSURE. PATIENT AGREEABLE AND COMPLIANT WITH POSITIONING SELF. UNABLE TO WEAN LEVOPHED DOWN. NO OTHER SIGNIFICANT EVENTS OVERNIGHT
--- NOTE | 2020-12-25 14:30 | TEE ---
[place] [address] TRANSESOPHAGEAL ECHOCARDIOGRAM Name: VIRGILIO BHATT Room: [address] IN .R.#: [id number] Admission: 12/21/20 Attend Phys: Janet Jeffers MD Discharge: Date of : 41 Date of Service: 12/25/20 1430 Report #: [id number] THIS REPORT FOR: cc: Dileep Alejo Bradley Dean DO Blick, David R. MD [facility] ~ APPROVED REPORT Study performed: 12/25/2020 13:09:11 EXAM: Transesophageal Echocardiogram Patient Location: In-Patient Room #: 003 Status: routine BSA: 1.83 HR: 74 bpm BP: 105/59 mmHg Rhythm: NSR Other Information Study Quality: Good Indications BACTEREMIA, ASSESS FOR VEGETATIONS Echo Enhancing Agent Indication: Rule out Shunt Agent(s) / Amount(s) Used: Agitated Saline 20 cc Comments: 2 BUBBLE STUDIES Procedure After obtaining informed consent, patient underwent transesophageal echo in the [employer]. Type of Sedation : General Anesthesia Sedation was administered by Anesthesiologist. Sedation was achieved intravenously with: Propofol () Transesophageal probe was inserted and advanced into esophagus without difficulty by Clyde Ramirez MD, FACC. Echo enhancement indication: R/O Septal defect. Echo enhancement agent administered: Agitated Saline The LEANDRA was performed without complications. Throughout the procedure, the blood pressure, pulse oximetry, cardiac rhythm, and rate were monitored. [address] [address] TRANSESOPHAGEAL ECHOCARDIOGRAM Name: VIRGILIO BHATT Room: [address] IN .R.#: [id number] Admission: 12/21/20 Attend Phys: Janet Jeffers MD Discharge: Date of : 41 Date of Service: 12/25/20 1430 Report #: [id number] The patient tolerated the procedure without adverse effects. Recovery from conscious sedation was uneventful and vital signs were stable. Left Ventricle Left ventricle is mildly dilated. apical akinesis There is normal left ventricular wall thickness. Left ventricular systolic function is severely decreased. LVEF is 15-20%. Right Ventricle The right ventricle is normal size. The right ventricular systolic function is normal. Pacemaker lead is present in the right ventricle. Atria Left atrium is dilated. No thrombus is visualized in the left atrium or appendage. The interatrial septum is intact with no evidence for an atrial septal defect. Right atrium is dilated. A pacemaker is seen in the right atrium consistent with history. Aortic Valve Mild aortic valve sclerosis. No aortic regurgitation is present. There is no aortic valvular vegetation. There is no aortic valvular stenosis. Mitral Valve The mitral valve is normal in structure. Mild mitral regurgitation. No evidence of mitral valve stenosis. Tricuspid Valve The tricuspid valve is normal in structure. Mild tricuspid regurgitation. Pulmonic Valve Pulmonic valve is not well visualized. Great Vessels The aortic root is normal in size. Pericardium There is no pericardial effusion. <Conclusion> LVEF is 15-20%. Left atrium is dilated. No thrombus is visualized in the left atrium or appendage. Mild aortic [place] [address] TRANSESOPHAGEAL ECHOCARDIOGRAM Name: VIRGILIO BHATT Room: [address] IN .R.#: [id number] Admission: 12/21/20 Attend Phys: Janet Jeffers MD Discharge: Date of : 41 Date of Service: 12/25/20 143 Report #: [id number] Mild mitral regurgitation. The interatrial septum is intact with no evidence for an atrial septal defect. There is no aortic valvular vegetation. <ELECTRONICALLY SIGNED> By: Clyde Ramirez MD, FACC 12/25/201429 29 29 Clyde Ramirez MD, FACC /INF
--- NOTE | 2020-12-25 15:27 | NUR ---
Remains on gtts for B/P 74/33, 4L nc, IV antibx, Hemo Dialysis, pending LEANDRA need. Will continue to follow for discharge planning needs.
[2020-12-26] VITALS (41 sets, daily range): BP systolic 87–132; BP diastolic 37–66
[2020-12-26 04:42] LABS: ABSOLUTE EOSINOPHILS 0.1 thou/uL (0.0-0.7); ABSOLUTE LYMPHOCYTES 0.8 thou/uL (0.8-5.3); ABSOLUTE MONOCYTES 0.7 thou/uL (0.0-1.2); ABSOLUTE NEUTROPHILS 4.6 thou/uL (1.6-8.1); BASOPHILS 0.6 %; EOSINOPHILS 1.8 %; HEMATOCRIT 30.5 % (42.0-52.0); HEMOGLOBIN 9.8 gm/dL (14.0-18.0); LYMPHOCYTES 12.2 %; MCH 32.1 pg (26.0-34.0); MCHC 32.1 g/dL (28.0-37.0); MONOCYTES 11.3 %; MPV 8.1 fl. (7.2-11.1); NUCLEATED RBCS 0 /100WBC; POLYS 74.1 %; RBC 3.05 mil/uL (4.50-6.00); RDW-CV 18.8 % (10.5-14.5); WBC 6.2 thou/uL (4.0-11.0)
[2020-12-26 04:54] LABS: PLATELET COUNT* 42 thou/uL (150-400)
[2020-12-26 05:14] LABS: CALCIUM 8.2 mg/dL (8.5-10.1); POTASSIUM 4.3 mmol/L (3.5-5.1)
[2020-12-26 05:17] LABS: CREATININE 5.1 mg/dL (0.6-1.3)
--- NOTE | 2020-12-26 09:19 | NUR ---
WOUND NURSE: PATIENT WAS SEEN YESTERDAY AND HE REPORTED TENDERNESS OVER COCCYGEAL AREA. THE SITE WAS RED AND NONBLANCHEABLE. LOREN SETTING OF MATTRESS WAS TURNED ON AND SACRAL BORDERED FOAM WAS INITIATED FOR PROTECTION. THIS MORNING PATIENT WAS REVISITED. WHEN ASKED HOW THE COCCYX WAS FEELING, HE STATED "IT FEELS ALOT BETTER." NOW THE COCCYX IS NORMAL PINK AND BLANCHEABLE AND FREE FROM DISCOMFORT PER THE PATIENT. WILL CONTINUE WITH CURRENT POT: LOREN MATTRESS, SACRAL BORDERED FOAM. PATIENT IS MOBILE AND ABLE TO STAND AT BEDSIDE AND REPOSITION SELFT. PATIENT UNDERSTANDS TO REPOSITION SELF IF/WHEN HE DEVELOPS TENDERNESS IN SACROCOCCYGEAL AREA.
--- NOTE | 2020-12-26 14:53 | NUR ---
Bun 38 Cr 5.1 on HD. Nstemi and sepsis Will continue to follow for discharge planning needs.Case and plan of care reviewed with MD each weekday during patient's length of stay. Continue plan of care per MD orders for current dx
[2020-12-27] VITALS: BP 92/50
--- NOTE | 2020-12-27 04:52 | NUR ---
PT BITES ET TUBE WHEN REPOSITIONED OR STIMULATED. PT HAVING DECORICATE POSTURING AT START OF SHIFT. PURPOSEFUL MOVEMENTS AT THIS TIME. COPIUS AMOUNT OF WHITE FROTHY SECRETIONS SUCTIONED FROM BACK OF THROAT. PT ATTEMPTING TO GRAB AND PULL. PT FOLLOWED COMMAND TO RELAX AND STRAIGHTEN ARM.
[2020-12-27 07:25] VITALS: BP 94/49
[2020-12-27 10:25] LABS: ABSOLUTE EOSINOPHILS 0.1 thou/uL (0.0-0.7); ABSOLUTE LYMPHOCYTES 0.6 thou/uL (0.8-5.3); ABSOLUTE MONOCYTES 0.6 thou/uL (0.0-1.2); ABSOLUTE NEUTROPHILS 5.2 thou/uL (1.6-8.1); BASOPHILS 0.4 %; EOSINOPHILS 1.6 %; HEMATOCRIT 31.5 % (42.0-52.0); HEMOGLOBIN 10.1 gm/dL (14.0-18.0); LYMPHOCYTES 9.6 %; MCH 32.3 pg (26.0-34.0); MCHC 32.1 g/dL (28.0-37.0); MCV 100.6 fL (80.0-100.0); MONOCYTES 9.3 %; MPV 8.2 fl. (7.2-11.1); NUCLEATED RBCS 0 /100WBC; PLATELET COUNT* 50 thou/uL (150-400); POLYS 79.1 %; RBC 3.13 mil/uL (4.50-6.00); RDW-CV 18.6 % (10.5-14.5); WBC 6.5 thou/uL (4.0-11.0)
[2020-12-27 10:40] LABS: ALBUMIN 3.1 g/dL (3.4-5.0); CALCIUM 7.7 mg/dL (8.5-10.1); CREATININE 3.7 mg/dL (0.6-1.3); POTASSIUM 4.2 mmol/L (3.5-5.1); TOTAL BILIRUBIN 0.9 mg/dL (<0.1-1.0); TOTAL PROTEIN 6.8 g/dL (6.4-8.2)
[2020-12-27 12:00] VITALS: BP 101/51
--- NOTE | 2020-12-27 12:59 | CON ---
[address] [address] CONSULTATION Name: VIRGILIO BHATT Room: [address] ADM IN M.R.#: [id number] Admission: 12/21/20 Attend Phys: Janet Jeffers MD Discharge: Date of : 41 Report #: [id number] THIS REPORT FOR: cc: Dileep Alejo Bradley Dean DO Khan, Abid R. MD ~ DATE OF SERVICE: 12/21/2020 NEPHROLOGY CONSULTATION CONSULTING PHYSICIAN: Dr. Jeffers. REASON FOR CONSULTATION: End-stage kidney disease. HISTORY OF PRESENT ILLNESS: A 75-year-old gentleman with history of end-stage kidney disease, on hemodialysis Tuesdays, and Saturdays, comes in with non-ST elevation, NV, pulmonary congestion and respiratory failure. He was admitted to the ICU, currently on BiPAP, seen on dialysis, tolerating treatment well. He has some relatively low blood pressures, midodrine was ordered and on dialysis, his systolic blood pressures are holding in the upper 90 range. We are ultrafiltering gently and he is tolerating that thus far. He is a limited historian at this time due to his illness and respiratory issues, but does not offer any complaints. REVIEW OF SYSTEMS: Constitutional, psych, heme, eyes, ENT, respiratory, cardiac, GI, , endocrine, all negative except as documented above and as best as can be ascertained. PAST MEDICAL HISTORY: End-stage kidney disease, coronary artery disease with history of CABG, history of diabetes type 2, abdominal aortic aneurysm, peripheral vascular disease with femoral bypass, diabetes type 2. FAMILY HISTORY: Not pertinent in this 75-year-old gentleman. SOCIAL HISTORY: Former smoker. CURRENT MEDICATIONS: Reviewed. PHYSICAL EXAMINATION: VITAL SIGNS: Blood pressure 96/53, pulse 106, respirations 17, temperature 37.2. GENERAL: On respiratory support, not in any distress. EYES: Closed. EARS: [place] [address] CONSULTATION Name: VIRGILIO BHATT Room: [address] IN ..#: [id number] Admission: 12/21/20 Attend Phys: Janet Jeffers MD Discharge: Date of : 41 Report #: [id number] CARDIOVASCULAR: Tachycardic. LUNGS: Diminished breath sounds. ABDOMEN: Soft. MUSCULOSKELETAL: Nontender. PSYCHIATRIC: Awakens, but I would just put awake, unable to fully assess. LABORATORY DATA: White cell count 13.4, hemoglobin 12.5, platelets 105. Sodium 136, potassium 6.2, chloride 96, bicarbonate 23, BUN 47, creatinine 5.5, glucose 248, calcium 8.8, magnesium 2.5, albumin 3.7. ASSESSMENT: 1. End-stage kidney disease, hemodialysis Wednesday, and Wednesday at the [facility]. 2. Insulin-dependent diabetes type 2. 3. Coronary artery disease with history of coronary artery bypass graft, peripheral vascular disease with history of femoral bypass, pulmonary congestion on chest x-ray. 4. Non-ST elevation myocardial infarction. 5. Hyperkalemia on admission with potassium of 6.2. PLAN: The patient is seen on dialysis, tolerating treatment well. We will ultrafilter as tolerated. Currently on BiPAP support. Using low potassium dialysate with dialysis. He is on empiric antibiotics. Cardiology has been consulted as well as Pulmonology. We will follow for dialysis needs. Thank you for requesting my opinion in the care and management of this patient. <ELECTRONICALLY SIGNED> By: Chelsea Decker MD 12/27/20 1259 1133 [id number] Decker MD /nt
--- NOTE | 2020-12-27 13:04 | NUR ---
Nutrition: Pt admitted with resp failure. RD is familiar with pt. Consult came in for wt loss. Pt is dialysis pt and wt usually fluctuates. Last admit, he weighed ~150# in May 2020, today wt is 142# - no significant true wt loss. Prior to that, pt had said he lost wt when he had COVID. Renal diet, eating well. Coccyx wound "normal pink" now. Meds, labs noted. Also spoke with his RN. Consider mild risk.
--- NOTE | 2020-12-27 13:23 | NUR ---
PLAN OF CARE: PT NOW TELE STATUS. NURSING INFORMS OF POSSIBLE NEED FOR PALLIATIVE CARE DISCUSSION. PHYSICIAN INFORMS OF PLAN FOR PT TO REMAIN INPT AT LEAST 2 MORE DAYS THEN DISCUSS D/C PLANNING. PT MAY NEED SNF AT D/C AND HE AND DTR WILL DISCUSS THIS. PT/OT F/U NEEDED TO DETERMINE NEED FOR SNF VS HOME WITH HH AT D/C. CM WILL REMAIN AVAILABLE TO ASSIST AND FOLLOW NEEDED.
--- NOTE | 2020-12-27 14:13 | NUR ---
RECEIVED REPORT AROUND 1400 FROM MARY BAI. PT ICU TX. GOING TO DIALYSIS NOW. WILL COME TO TELE AFTERWARDS. WILL CONTINUE TO MONITOR.
--- NOTE | 2020-12-27 14:22 | NUR ---
REPORT GIVEN TO JEFFERY HERNANDEZ ON . PT TAKEN TO DIALYSIS VIA WC THEN WILL GO TO ROOM 227. ALL PERSONAL BELONGINGS SENT WITH PT
[2020-12-27 16:00] VITALS: BP 115/53
--- NOTE | 2020-12-27 19:05 | NUR ---
PT ARRIVED ON UNIT AROUND 1600 FROM DIALYSIS. PT ORIENTED TO NEW ROOM. MEDS GIVEN PER MAR. HOURLY ROUNDING PERFORMED. IV INTACT. HEART MONITOR ATTACHED AT [facility]. PT UP STAND BY ASSIST. 4L NC. CALL LIGHT WITHIN REACH. WILL CONTINUE TO MONITOR.
[2020-12-27 19:50] VITALS: BP 113/28
[2020-12-28 00:21] VITALS: BP 110/37
[2020-12-28 04:07] LABS: ABSOLUTE EOSINOPHILS 0.1 thou/uL (0.0-0.7); ABSOLUTE LYMPHOCYTES 0.9 thou/uL (0.8-5.3); ABSOLUTE MONOCYTES 0.7 thou/uL (0.0-1.2); ABSOLUTE NEUTROPHILS 4.1 thou/uL (1.6-8.1); BASOPHILS 0.7 %; HEMATOCRIT 31.3 % (42.0-52.0); HEMOGLOBIN 10.1 gm/dL (14.0-18.0); LYMPHOCYTES 15.7 %; MCH 32.5 pg (26.0-34.0); MCHC 32.4 g/dL (28.0-37.0); MCV 100.1 fL (80.0-100.0); MONOCYTES 11.4 %; NUCLEATED RBCS 0 /100WBC; PLATELET COUNT* 57 thou/uL (150-400); POLYS 70.2 %; RBC 3.12 mil/uL (4.50-6.00); RDW-CV 18.4 % (10.5-14.5); WBC 5.8 thou/uL (4.0-11.0)
[2020-12-28 04:12] VITALS: BP 108/39
[2020-12-28 04:32] LABS: ALBUMIN 3.5 g/dL (3.4-5.0); CREATININE 4.5 mg/dL (0.6-1.3); POTASSIUM 4.2 mmol/L (3.5-5.1); TOTAL BILIRUBIN 0.8 mg/dL (<0.1-1.0); TOTAL PROTEIN 7.1 g/dL (6.4-8.2)
[2020-12-28 08:00] VITALS: BP 101/56
[2020-12-28] MEDS ORDERED: PLAVIX 75 MG TA75 M1 PO (09:51)
[2020-12-28] MEDS ORDERED: MIDODRINE HCL 55 M1 PO (09:51)
[2020-12-28 16:26] VITALS: BP 106/51
--- NOTE | 2020-12-28 17:39 | NUR ---
RECEIVED REPORT AROUND 0715. ASSUMED CARE. VS AND ASSESSMENT CHARTED. IV INTACT RIGHT FOREARM. HEART MONITOR ATTACHED AT [facility]. PT HAD DIALYSIS THIS SHIFT. PULLED 3L OFF. MEDS GIVEN PER NOV. HOURLY ROUNDING PERFORMED. 2-3L NC. CALL LIGHT WITHIN REACH. WILL CONTINUE TO MONITOR.
[2020-12-28 20:00] VITALS: BP 94/51
[2020-12-29] VITALS (7 sets, daily range): BP systolic 90–132; BP diastolic 48–83
[2020-12-29 11:33] LABS: ABSOLUTE BASOPHILS 0.1 thou/uL (0.0-0.2); ABSOLUTE EOSINOPHILS 0.1 thou/uL (0.0-0.7); ABSOLUTE LYMPHOCYTES 0.9 thou/uL (0.8-5.3); ABSOLUTE MONOCYTES 0.6 thou/uL (0.0-1.2); ABSOLUTE NEUTROPHILS 3.5 thou/uL (1.6-8.1); BASOPHILS 1.3 %; EOSINOPHILS 1.5 %; HEMATOCRIT 30.2 % (42.0-52.0); HEMOGLOBIN 9.8 gm/dL (14.0-18.0); LYMPHOCYTES 17.7 %; MCH 32.6 pg (26.0-34.0); MCHC 32.4 g/dL (28.0-37.0); MCV 100.4 fL (80.0-100.0); MONOCYTES 11.9 %; MPV 7.7 fl. (7.2-11.1); NUCLEATED RBCS 0 /100WBC; PLATELET COUNT* 74 thou/uL (150-400); POLYS 67.6 %; RBC 3.01 mil/uL (4.50-6.00); RDW-CV 18.9 % (10.5-14.5); WBC 5.1 thou/uL (4.0-11.0)
[2020-12-29 11:55] LABS: ALBUMIN 3.6 g/dL (3.4-5.0); CREATININE 3.9 mg/dL (0.6-1.3); POTASSIUM 4.1 mmol/L (3.5-5.1); TOTAL BILIRUBIN 0.8 mg/dL (<0.1-1.0); TOTAL PROTEIN 7.6 g/dL (6.4-8.2)
--- NOTE | 2020-12-29 17:08 | NUR ---
RECEIVED REPORT AROUND 0715. ASSUMED CARE. VS AND ASSESSMENT CHARTED. IV INTACT RIGHT FOREARM. FISTULA INTACT LEFT FOREARM INTACT. PT UP ADLIB TO BSC. 3L NC. 1500 FLUID RESTRICTION INTACT. WATER FILLED FOR REST OF NIGHT. PT AWARE. COMMUNICATED UNDERSTANDING. PT REFUSED TO HAVE BED ALARM ON. MEDS GIVEN PER NOV. HOURLY ROUNDING PERFORMED. CALL LIGHT WITH IN REACH. WILL CONTINUE TO MONITOR. [facility].
[2020-12-30 05:11] VITALS: BP 93/49
--- NOTE | 2020-12-30 07:41 | NUR ---
PT IS ABLE TO COMMUNICATE HIS NEEDS TO STAFF EFFECTIVELY. HE HAS DENIED THE NEED FOR PAIN MEDICATION UP TO 0700 THIS MORNING. LEFT ARM LIMB ALERT. HE IS A TUE/THUR/SAT DIALYSIS PATIENT. POSSIBLE DISCHARGE TO A [facility] LATER TODAY.
[2020-12-30 08:19] VITALS: BP 105/56
--- NOTE | 2020-12-30 14:31 | NUR ---
CM SPOKE TO THE PT AND HIS DTR SANJEEV TO DISCUSS CHOICE OF SNF AND PLAN TO D/C HOME TODAY IF ACCEPTED. PT AND DTR [facility]OSE [facility]ALTH [facility]. CM FAXED IS'S PT'S CLINCIAL INFO AND PT/OT NOTES. IS'S ACCEPTED PT AND ARRANGED TRANSPORT FOR [id number]. CM INFORMED RN IN-CHARGE OF PT OF PT'S TIME OF TRANSFER AND WHERE TO CALL REPORT. CM WILL REMAIN AVAILABLE TO ASSIST AND FOLLOW NEEDED. [facility] PHONE: [phone] FAX: [phone]
== END 2020-12-30 15:32 | DRG 871 ==
LOC: M.ERS 01:39 → M.TBA-ER 03:20 → M.ICU 03:52 → M.TBA-ER 03:52 → M.ICU 04:27 → M.2W 12-27 14:10
PROVIDERS: Emergency Medicine; Internal Medicine; Internal Medicine Cardiovascular Disease; Internal Medicine Critical Care Medicine; Internal Medicine Hematology & Oncology; Internal Medicine Nephrology; ADMIT Family Medicine; ATTEND Family Medicine
PROC: 02HV33Z Insertion of Infusion Device into Superior Vena Cava, Percutaneous Approach (ICD-10-PCS; principal; 2020-12-21)
PROC: 5A0935A Assistance with Respiratory Ventilation, Less than 24 Consecutive Hours, High Flow/Velocity Cannula (ICD-10-PCS; principal; 2020-12-21)
PROC: 5A09357 Assistance with Respiratory Ventilation, Less than 24 Consecutive Hours, Continuous Positive Airway Pressure (ICD-10-PCS; principal; 2020-12-21)
PROC: 5A1D70Z Performance of Urinary Filtration, Intermittent, Less than 6 Hours Per Day (ICD-10-PCS; principal; 2020-12-21)
PROC: 5A1D70Z Performance of Urinary Filtration, Intermittent, Less than 6 Hours Per Day (ICD-10-PCS; 2020-12-24)
PROC: B24BZZ4 Ultrasonography of Heart with Aorta, Transesophageal (ICD-10-PCS; 2020-12-25)
PROC: 5A1D70Z Performance of Urinary Filtration, Intermittent, Less than 6 Hours Per Day (ICD-10-PCS; 2020-12-26)
PROC: 5A1D70Z Performance of Urinary Filtration, Intermittent, Less than 6 Hours Per Day (ICD-10-PCS; 2020-12-28)
DX: A41.01 Sepsis due to Methicillin susceptible Staphylococcus aureus (principal); R65.21 Severe sepsis with septic shock; N18.6 End stage renal disease; J18.9 Pneumonia, unspecified organism; I50.23 Acute on chronic systolic (congestive) heart failure; I21.A1 Myocardial infarction type 2; J96.21 Acute and chronic respiratory failure with hypoxia; J91.8 Pleural effusion in other conditions classified elsewhere; G47.10 Hypersomnia, unspecified; D69.6 Thrombocytopenia, unspecified; E11.22 Type 2 diabetes mellitus with diabetic chronic kidney disease; E87.5 Hyperkalemia; E11.51 Type 2 diabetes mellitus with diabetic peripheral angiopathy without gangrene; I25.5 Ischemic cardiomyopathy; E78.5 Hyperlipidemia, unspecified; I25.10 Atherosclerotic heart disease of native coronary artery without angina pectoris; G47.33 Obstructive sleep apnea (adult) (pediatric); D64.9 Anemia, unspecified; I95.9 Hypotension, unspecified; J44.9 Chronic obstructive pulmonary disease, unspecified; Z20.822 Contact with and (suspected) exposure to COVID-19; Z96.651 Presence of right artificial knee joint; Z79.4 Long term (current) use of insulin; Z79.82 Long term (current) use of aspirin; Z79.899 Other long term (current) drug therapy; Z95.810 Presence of automatic (implantable) cardiac defibrillator; Z95.5 Presence of coronary angioplasty implant and graft; Z86.16 Personal history of COVID-19; Z87.891 Personal history of nicotine dependence; Z99.2 Dependence on renal dialysis; Z95.1 Presence of aortocoronary bypass graft

== ENCOUNTER → 2021-01-28 | Outpatient (CLI) | payer MEDICARE ==
[~2021-01-28] MED LIST changes: +MIDODRINE HCL 55 M1 PO; +PLAVIX 75 MG TA75 M1 PO
== END ==
LOC: M.RAD 15:44
PROVIDERS: ATTEND Internal Medicine Critical Care Medicine
DX: J90 Pleural effusion, not elsewhere classified (principal); I50.22 Chronic systolic (congestive) heart failure; J98.11 Atelectasis

== ENCOUNTER → 2021-01-30 | Outpatient (CLI) | payer MEDICARE | LOC: M.CT 13:33 | PROVIDERS: ATTEND Internal Medicine Critical Care Medicine | DX: J43.9 Emphysema, unspecified (principal); J90 Pleural effusion, not elsewhere classified; R91.8 Other nonspecific abnormal finding of lung field ==

== ENCOUNTER → 2021-02-19 | Outpatient (CLI) | payer MEDICARE ==
[2021-02-19 11:27] LABS: ABSOLUTE LYMPHOCYTES 0.6 thou/uL (0.8-5.3); ABSOLUTE MONOCYTES 0.4 thou/uL (0.0-1.2); ABSOLUTE NEUTROPHILS 3.2 thou/uL (1.6-8.1); BASOPHILS 0.9 %; HEMATOCRIT 38.7 % (42.0-52.0); HEMOGLOBIN 12.3 gm/dL (14.0-18.0); LYMPHOCYTES 13.9 %; MCH 34.8 pg (26.0-34.0); MCHC 31.9 g/dL (28.0-37.0); MCV 109.2 fL (80.0-100.0); MONOCYTES 9.5 %; MPV 8.6 fl. (7.2-11.1); NUCLEATED RBCS 0 /100WBC; PLATELET COUNT* 101 thou/uL (150-400); POLYS 74.7 %; RBC 3.54 mil/uL (4.50-6.00); RDW-CV 17.5 % (10.5-14.5); WBC 4.3 thou/uL (4.0-11.0)
[2021-02-19 11:32] LABS: CALCIUM 9.2 mg/dL (8.5-10.1); CREATININE 5.3 mg/dL (0.6-1.3); POTASSIUM 5.2 mmol/L (3.5-5.1)
[2021-02-19 11:43] LABS: APTT 23.9 Seconds (25.0-31.3); INR 1.1; PROTIME 11.6 Seconds (9.20-11.50)
[2021-02-19 14:27] LABS: BF RBC 2630 /mm3; TOTAL CELL COUNT 191 /mm3
[2021-02-19 14:57] LABS: CLARITY SLIGHTLY HAZY; TOTAL VOLUME 2100 ml
[2021-02-19 15:20] LABS: BF LYMPHOCYTES 94 %; BF POLYS 6 %; BF TISSUE 68 /100 WBC
[2021-02-19 15:26] LABS: SOURCE PLEURAL FLUID
[2021-02-21 13:09] LABS: BODY FLUID PROTEIN 2.8 g/dL (())
--- NOTE | 2021-02-24 13:08 | PATH ---
[address] [address] PATHOLOGY RPT PROCEDURE Name: VIRGILIO BHATT Room: [facility].#: [id number] Admission: 02/19/21 Date of : 41 Discharge: Report #: [id number] Path Case #: [id number] Note [facility] Accession Number: [id number] TESTS RESULT FLAG UNITS REF RANGE LAB Clinician Provided Cytology Information No. of containers..01 Other (Miscellaneous) Source: RIGHT PLEURAL FLUID DIAGNOSIS: 02 RIGHT PLEURAL FLUID NEGATIVE FOR MALIGNANT CELLS. REACTIVE MESOTHELIAL CELLS AND FEW INFLAMMATORY CELLS. CELL BLOCK EVALUATION INCLUDED. Signed out by: 02 Abdi Armando MD, Pathologist NPI- [id number] Performed by: Gamal Meade, Files Supervisor ([facility]) Gross description: 01 40ML, HAZY YELLOW, 1 TP 1CB /LCS 02/20/2021 1721 Local FLAG LEGEND: L-Low Normal,H-High Normal,LL-Alert Low,HH-Alert High <-Panic Low,>-Panic High,A-Abnormal,AA-Critical Abnormal Performed at: [address] [place] [address] Enio Patrick MD, [address] [place] [address] [place] [address] Abdi Armando MD, Specimen Comment: A courtesy copy of this report has been sent to [phone] Specimen Comment: 2052 Specimen Comment: Report sent to / DR KC Specimen Comment: Report sent to Performed at: [address], [place], [place] [id number] MD Enio Patrick MD Phone: [phone]
== END | disposition home or self-care (01) ==
LOC: M.LAB 11:00 → M.ULTRA 13:00
PROVIDERS: ATTEND Nurse Practitioner
DX: J90 Pleural effusion, not elsewhere classified (principal); R06.02 Shortness of breath; E11.22 Type 2 diabetes mellitus with diabetic chronic kidney disease; N18.6 End stage renal disease; I50.33 Acute on chronic diastolic (congestive) heart failure; Z98.890 Other specified postprocedural states; Z79.899 Other long term (current) drug therapy; Z95.0 Presence of cardiac pacemaker; Z96.651 Presence of right artificial knee joint; Z87.891 Personal history of nicotine dependence

== ENCOUNTER → 2021-03-04 | Outpatient (CLI) | payer MEDICARE | LOC: M.RAD 11:59 | PROVIDERS: ATTEND Internal Medicine Critical Care Medicine | DX: J96.11 Chronic respiratory failure with hypoxia (principal); J90 Pleural effusion, not elsewhere classified; I50.22 Chronic systolic (congestive) heart failure ==

== ENCOUNTER → 2021-03-06 | Outpatient (CLI) | payer MEDICARE | LOC: M.ULTRA 12:51 | PROVIDERS: ATTEND Internal Medicine Critical Care Medicine | DX: R60.0 Localized edema (principal) ==

== ENCOUNTER → 2021-03-10 | Outpatient (CLI) | payer MEDICARE ==
[2021-03-10 12:17] LABS: ABSOLUTE BASOPHILS 0.1 thou/uL (0.0-0.2); ABSOLUTE EOSINOPHILS 0.1 thou/uL (0.0-0.7); ABSOLUTE LYMPHOCYTES 0.8 thou/uL (0.8-5.3); ABSOLUTE MONOCYTES 0.5 thou/uL (0.0-1.2); ABSOLUTE NEUTROPHILS 3.5 thou/uL (1.6-8.1); BASOPHILS 1.2 %; EOSINOPHILS 1.9 %; HEMATOCRIT 38.9 % (42.0-52.0); LYMPHOCYTES 15.5 %; MCH 35.1 pg (26.0-34.0); MCHC 33.3 g/dL (28.0-37.0); MCV 105.4 fL (80.0-100.0); MPV 7.8 fl. (7.2-11.1); NUCLEATED RBCS 0 /100WBC; PLATELET COUNT* 80 thou/uL (150-400); POLYS 71.4 %; RBC 3.69 mil/uL (4.50-6.00); RDW-CV 16.4 % (10.5-14.5); WBC 4.9 thou/uL (4.0-11.0)
[2021-03-10 12:29] LABS: INR 1.1; PROTIME 11.9 Seconds (9.20-11.50)
[2021-03-10 12:30] LABS: TOTAL PROTEIN 7.7 g/dL (6.4-8.2)
[2021-03-10 15:26] LABS: BF RBC 311815 /mm3; CLARITY CLOUDY; SOURCE THORACENTESIS; TOTAL CELL COUNT 344 /mm3; TOTAL VOLUME 15 ml
[2021-03-10 15:28] LABS: BF LYMPHOCYTES 70 %; BF MONOCYTES 1 %; BF POLYS 29 %
--- NOTE | 2021-03-14 14:07 | PATH ---
[address] [address] PATHOLOGY RPT PROCEDURE Name: VIRGILIO BHATT Room: [facility] Lili.#: [id number] Admission: 03/10/21 Date of : 41 Discharge: Report #: [id number] Path Case #: [id number] Note [facility] Accession Number: [id number] TESTS RESULT FLAG UNITS REF RANGE LAB Clinician Provided Cytology Information No. of containers..01 Other (Miscellaneous) Source: LEFT PLERUAL FLUID DIAGNOSIS: 02 LEFT PLERUAL FLUID NEGATIVE FOR MALIGNANT CELLS. ABUNDANT BLOOD AND RARE MESOTHELIAL CELLS. THIS INTERPRETATION INCLUDES EVALUATION OF A CELL BLOCK. Signed out by: 02 Abdi Armando MD, Pathologist NPI- [id number] Performed by: 01 Sarah Montelongo, Websphere Architect ([facility]) Gross description: 01 23ML, CLOUDY ORNG/RED, 1 T 1 CB /LCS 03/13/2021 0023 Local FLAG LEGEND: L-Low Normal,H-High Normal,LL-Alert Low,HH-Alert High <-Panic Low,>-Panic High,A-Abnormal,AA-Critical Abnormal Performed at: [address] [place] [address] Enio Patrick MD, [address] [address] Abdi Armando MD, Specimen Comment: A duplicate report has been generated due to demographic updates. Performed at: [address], [place], [place] [id number] MD Enio Patrick MD Phone: [phone]
== END | disposition home or self-care (01) ==
LOC: M.LAB 11:57 → M.ULTRA 13:00
PROVIDERS: ATTEND Internal Medicine Critical Care Medicine
DX: J90 Pleural effusion, not elsewhere classified (principal); E11.22 Type 2 diabetes mellitus with diabetic chronic kidney disease; N18.6 End stage renal disease; I50.33 Acute on chronic diastolic (congestive) heart failure; Z98.890 Other specified postprocedural states; Z79.899 Other long term (current) drug therapy; Z96.651 Presence of right artificial knee joint; Z95.0 Presence of cardiac pacemaker

== ENCOUNTER → 2021-05-15 | Outpatient (CLI) | payer MEDICARE | LOC: M.RAD 13:08 | PROVIDERS: ATTEND Internal Medicine Critical Care Medicine | DX: J90 Pleural effusion, not elsewhere classified (principal); I51.7 Cardiomegaly; I50.22 Chronic systolic (congestive) heart failure; J96.11 Chronic respiratory failure with hypoxia; R91.8 Other nonspecific abnormal finding of lung field; N18.6 End stage renal disease; Z99.2 Dependence on renal dialysis ==

== ENCOUNTER → 2021-08-29 | Outpatient (CLI) | payer MEDICARE | LOC: M.RAD 13:54 | PROVIDERS: ATTEND Internal Medicine Critical Care Medicine | DX: J96.11 Chronic respiratory failure with hypoxia (principal); J90 Pleural effusion, not elsewhere classified; I50.22 Chronic systolic (congestive) heart failure; N18.6 End stage renal disease; Z99.2 Dependence on renal dialysis ==

== ENCOUNTER 2021-09-30 06:39 | Inpatient (IN) | payer MEDICARE ==
[~2021-09-30] VITALS: Ht 177.8 cm; Wt 65.3 kg
[2021-09-30 06:40] VITALS: BP 117/78
[2021-09-30] MEDS ORDERED: METOPROLOL (06:51)
[2021-09-30 07:28] LABS: CREATININE 6.2 mg/dL (0.6-1.3); POTASSIUM 4.6 mmol/L (3.5-5.1)
--- NOTE | 2021-09-30 07:31 | NUR ---
UNABLE TO OBTAIN URINE DUE TO PT MAKES VERY LITTLE URINE PER PT STATEMENT AND STATES HE IS A DIALYSIS PT. DOES DIALYSIS WEDNESDAY, WEDNESDAY, AND WEDNESDAY
[2021-09-30 07:33] LABS: ALBUMIN 3.9 g/dL (3.4-5.0); TOTAL BILIRUBIN 1.1 mg/dL (<0.1-1.0); TOTAL PROTEIN 8.1 g/dL (6.4-8.2)
[2021-09-30 07:42] LABS: HEMATOCRIT 43.5 % (42.0-52.0); HEMOGLOBIN 13.9 gm/dL (14.0-18.0); MCH 35.9 pg (26.0-34.0); MCHC 31.9 g/dL (28.0-37.0); MCV 112.4 fL (80.0-100.0); MPV 8.3 fl. (7.2-11.1); NUCLEATED RBCS 1 /100WBC; PLATELET COUNT* 139 thou/uL (150-400); RBC 3.87 mil/uL (4.50-6.00); RDW-CV 19.4 % (10.5-14.5); WBC 7.3 thou/uL (4.0-11.0)
--- NOTE | 2021-09-30 08:43 | NUR ---
DIALYSIS NURSE SWAPNA CALLED AND STATES SHE IS EN ROUTE ETA 10 MINUTES.
[2021-09-30 08:56] LABS: ABSOLUTE EOSINOPHILS 0.1 thou/uL (0.0-0.7); ABSOLUTE MONOCYTES 0.3 thou/uL (0.0-1.2); ABSOLUTE NEUTROPHILS 5.9 thou/uL (1.6-8.1); ANISOCYTOSIS 1+; MACROCYTES 2+; MYELOCYTES 1 %; PLATELET ESTIMATE DECREASED
[2021-09-30 09:50] VITALS: BP 82/48
[2021-09-30 12:34] VITALS: BP 93/57
[2021-09-30] MEDS ORDERED: ASA81BEC PO (12:50)
[2021-09-30] MEDS ORDERED: AZITHROMYCIN500 MG PO (12:50)
[2021-09-30] MEDS ORDERED: BRILINTA90 MG PO (12:51)
[2021-09-30] MEDS ORDERED: CALCIUM ACETAT667 MG PO (12:52)
[2021-09-30] MEDS ORDERED: FUROSEMIDE 40 M40 MG PO (12:53)
[2021-09-30] MEDS ORDERED: PLAVIX 75 MG TA75 MG PO (12:53)
[2021-09-30] MEDS ORDERED: MIDODRINE HCL 55 M1 PO (12:54)
[2021-09-30] MEDS ORDERED: TOPROL XL25 MG PO (12:54)
[2021-09-30] MEDS ORDERED: MONTELUKAST SODI4 M1 PO (12:55)
--- NOTE | 2021-09-30 13:11 | EKG ---
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 Electronically Signed On 09-30-2021 13:11:24 SODA COLUMN OPERATOR by Orville Austin [email or web address] <ELECTRONICALLY SIGNED> By: Orville Austin MD, FACC 09/30/21 1311 0644 0644 Orville Austin MD, FACC /EPI
--- NOTE | 2021-09-30 13:28 | NUR ---
PATIENT HAS BEEN SLEEPING ALL MORNING. DR WAS IN, AND PATIENT WOULD NOT COOPERATE WITH HIM. SHE WANTED TO SLEEP. IVF NOW AT [facility].
--- NOTE | 2021-09-30 15:52 | NUR ---
CM MET WITH PROVIDERS FOR DAILY ROUNDS. PT EXPERIENCING DECLINE IN HEALTH EVEN WITH DIALYSIS IN PLACE. PT WITH ARRANGEMENT TO MOVE INTO SON'S HOME UPON MED CLEARANCE FOR ADDITIONAL SUPPORT WITH NEEDS. CM TO FOLLOW AND ATTMEPT TO MEET WITH PT TO COMPLETE ASSESSMENT.
--- NOTE | 2021-09-30 20:01 | NUR ---
PT ADMITTED TO ROOM 200 VIA CART FROM ED, PT AOX4, NO C/O PAIN, DIALYSIS HERE WELL AND SET UP FOR DIALYSIS IN PT ROOM, PT BROUGHT TO FLOOR AT APPROX 0950 AND DIALYZED UNTIL APPROX 1400, MIDODRINE AND ALBUMIN GIVEN TO KEEP PT'S BP'S UP PER DR PACHECO, NEPHROLOGY. ADMISSION ASSESSMENT AND HX COMPLETED CHARTED, PT'S DAUGHTER IN ROOM THIS AFTERNOON. AT APPROX 1447, PT'S DAUGHTER CAME OUT OF ROOM STATING PT WAS "ACTING WEIRD", ME AND ANOTHER RN AND A HVAC SERVICES PROFESSIONAL IMMEDIATELY WENT INTO ROOM WHERE PT WAS UNRESONSIVE W/ VERY FAINT PULSE, PACER SPIKES STILL SHOWING ON THE MONITOR BUT PT NOT BREATHING, CODE CALLED AT THIS TIME AND PT CODED UNTIL APPROX 1510 WHEN TIME OF WAS CALLED, SEE PAPER CHARTING ON CODE. PT'S FAMILY IN ROOM AND CONSOLED, PT'S BODY BROUGHT DOWN TO [facility] AT APPROX 1800 BY SECURITY. NO BELONGINGS W/ PT AT THIS TIME, ALL BELONGINGS SENT HOME W/ FAMILY.
--- NOTE | 2021-10-01 09:12 | CON ---
[address] [address] CONSULTATION Name: VIRGILIO BHATT Room: [address] IN M.R.#: [id number] Admission: 09/30/21 Attend Phys: Burke Chen MD Discharge: 09/30/21 Date of : 41 Report #: [id number] THIS REPORT FOR: cc: Dileep Alejo Bradley Dean DO Liston, Michael J. MD [facility] ~ cc: Dileep Alejo DO, John M. Holkins, MD [facility] DATE OF CONSULTATION: 09/30/2021 CARDIOLOGY CONSULTATION INDICATION: Heart failure. HISTORY OF PRESENT ILLNESS: The patient is a very pleasant 76-year-old gentleman with history of ischemic cardiomyopathy. Most recent ejection fraction estimated to be 15-20%. He has a history of coronary artery bypass grafting remotely with subsequent percutaneous coronary interventions. 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 The patient has end-stage renal disease and dialyzes on Tuesdays, and Saturdays. He does not make urine. The patient was admitted through the Emergency Room with complaints of increasing fatigue and shortness of breath. Traditionally, he has [place] Heart Association class IV heart failure. He has not missed any of his dialysis episodes. Nephrology is following. He is not having any chest pain to suggest angina. Primary symptoms are fatigue and shortness of breath with orthopnea. He has evidence of ascites as well as peripheral edema. He is currently dialyzing. PAST MEDICAL HISTORY: 1. Coronary artery disease with coronary artery bypass grafting in 1997. 2. Percutaneous coronary intervention on multiple occasions. 3. Ischemic cardiomyopathy with EF of 15-20%. 4. 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 5. End-stage renal disease, on hemodialysis 3 times weekly. 6. Peripheral arterial disease with previous aortobifemoral bypass. 7. Diabetes. 8. Hypertension. 9. Hyperlipidemia. 10. Knee replacements. ALLERGIES: None documented. HOME MEDICATIONS: Atorvastatin 20 mg daily, glimepiride 2 mg daily, Lantus insulin 25 units subcutaneous at bedtime, Synthroid 112 mcg daily, Latasha-[address] [place] [address] CONSULTATION Name: NOVAVIRGILIO CHEN Room: [address]#: [id number] Admission: 09/30/21 Attend Phys: Burke Chen MD Discharge: 09/30/21 Date of : 41 Report #: [id number] tablet daily, metoprolol as directed. FAMILY HISTORY: Positive for coronary artery disease. SOCIAL HISTORY: The patient is living by himself with plans to move in with his son after this hospitalization. He quit smoking years ago. No history of alcohol abuse. REVIEW OF SYSTEMS: Positive for dyspnea, orthopnea, insomnia. He is not having significant chest pain at this time. Otherwise, 14-point review of systems unremarkable. PHYSICAL EXAMINATION: VITAL SIGNS: Blood pressure 114/66, pulse 87. GENERAL: This is a thin elderly male who does not appear to be in acute distress. HEENT: The patient is wearing glasses. Extraocular muscles intact. Mucous membranes are moist. NECK: Shows jugular venous distention. There are no bruits. CHEST: Reveals diminished breath sounds with basilar rales. CARDIAC: Reveals a regular rhythm without murmur. ABDOMEN: Reveals protuberance and fluid wave. EXTREMITIES: Shows edema. SKIN: Dry. DIAGNOSTIC DATA: A 12-lead EKG shows atrially sensed ventricularly paced rhythm. LABORATORY DATA: Labs are reviewed. Sodium 136, potassium 4.6, chloride 95, bicarbonate 24, BUN 49, creatinine 6.2, serum glucose 177. LFTs are essentially unremarkable. High sensitivity troponin 3206. NT-proBNP greater than 35,000. White blood cell count 7.3, hemoglobin 13.9, platelet count 139,000. Chest x-ray shows cardiomegaly with vascular congestion, right greater than left. IMPRESSION AND RECOMMENDATIONS: 1. Acute on chronic systolic heart failure. The patient is dialysis dependent for fluid removal. Nephrology is following. He is currently on dialysis. Pressure will be supported with midodrine and albumin as needed. 2. Ischemic cardiomyopathy. The patient is not on traditional heart failure regimen as blood pressure has been somewhat soft. We will follow during hospitalization and make adjustments as tolerated. 3. Elevated troponin in the setting of chronic renal failure, [place] [address] CONSULTATION Name: VIRGILIO BHATT Room: [address]#: [id number] Admission: 09/30/21 Attend Phys: Burke Chen MD Discharge: 09/30/21 Date of : 41 Report #: [id number] patient is not having symptoms to suggest angina or acute coronary syndrome. Would continue conservative medical management. 4. Hyperlipidemia. Continue current statin agent. 5. History of diabetes per hospitalist. 6. Peripheral arterial vascular disease, presently stable. 7. History of hypertension. Blood pressure presently soft and labile. Continue midodrine as needed. <ELECTRONICALLY SIGNED> By: Orville Austin MD, FACC 10/01/21 0912 0947 [id number] Austin MD, FACC /nt
== END 2021-09-30 18:00 ==
LOC: M.ERS 06:39 → M.TBA-ER 08:24 → M.2W 09:45
PROVIDERS: Personal Emergency Response Attendant; ADMIT Internal Medicine; ATTEND Internal Medicine
PROC: 5A1D70Z Performance of Urinary Filtration, Intermittent, Less than 6 Hours Per Day (ICD-10-PCS; principal; 2021-09-30)
PROC: 5A12012 Performance of Cardiac Output, Single, Manual (ICD-10-PCS; principal; 2021-09-30)
PROC: 5A09357 Assistance with Respiratory Ventilation, Less than 24 Consecutive Hours, Continuous Positive Airway Pressure (ICD-10-PCS; principal; 2021-09-30)
DX: I13.2 Hypertensive heart and chronic kidney disease with heart failure and with stage 5 chronic kidney disease, or end stage renal disease (principal); I21.4 Non-ST elevation (NSTEMI) myocardial infarction; J18.9 Pneumonia, unspecified organism; I50.23 Acute on chronic systolic (congestive) heart failure; E43 Unspecified severe protein-calorie malnutrition; J96.01 Acute respiratory failure with hypoxia; N18.6 End stage renal disease; Z68.20 Body mass index [BMI] 20.0-20.9, adult; I25.10 Atherosclerotic heart disease of native coronary artery without angina pectoris; E11.22 Type 2 diabetes mellitus with diabetic chronic kidney disease; Z99.2 Dependence on renal dialysis; Z79.4 Long term (current) use of insulin; I25.5 Ischemic cardiomyopathy; Z87.891 Personal history of nicotine dependence; Z95.0 Presence of cardiac pacemaker; E78.5 Hyperlipidemia, unspecified; Z20.822 Contact with and (suspected) exposure to COVID-19